=== PATIENT | female | born 1945 | race Caucasian/White ===

== ENCOUNTER → 2016-10-28 | Outpatient (CLI) | payer BC ==
[~2016-10-28] MED LIST: ATOR-54 PO; CALCIUM PO; CMD25 PO; CMD5 PO; LISI5TAB3 PO; LORA-741 PO; METO100T14 PO; NXM/40 PO; OMEGCAP2 PO; TRIATAB3 PO; VITAMIN D PO
[2016-10-28 14:43] LABS: URINE APPEARANCE CLEAR (CLEAR); URINE BILIRUBIN NEG (NEG); URINE COLOR YELLOW; URINE EPITHELIAL CELL AUTO 0-5 /lpf (0-5); URINE NITRITE NEG (NEG); URINE PH 7.5 (4.5-7.5); UROBILINOGEN NEG (NEG)
[2016-10-28 14:47] LABS: BLOOD UREA NITROGEN 16 mg/dl (7-18); BUN/CREATININE RATIO 11.1 (10-20); CALCIUM 9.2 mg/dl (8.5-10.1); CARBON DIOXIDE 27 mmol/L (21-32); CHLORIDE 104 mmol/L (98-107); GLUCOSE 99 mg/dl (70-99); PHOSPHORUS 3.1 mg/dl (2.5-4.9); POTASSIUM 3.9 mmol/L (3.5-5.1); SODIUM 140 mmol/L (136-145)
[2016-10-28 14:49] LABS: MANUAL MICROSCOPIC REQUIRED? NO; REVIEW REQ? NO
== END | disposition home or self-care (01) ==
LOC: C.LAB1850 12:53
PROVIDERS: ATTEND Internal Medicine Nephrology
DX: N18.3 Chronic kidney disease, stage 3 (moderate) (principal); E55.9 Vitamin D deficiency, unspecified

== ENCOUNTER → 2016-12-16 | Outpatient (CLI) | payer BC | END | disposition home or self-care (01) | LOC: C.LABBFT 11:03 | PROVIDERS: ATTEND Internal Medicine | DX: E03.9 Hypothyroidism, unspecified (principal) ==

== ENCOUNTER → 2016-12-28 | Outpatient (CLI) | payer BC ==
--- NOTE | 2016-12-28 15:55 | MAMMOGRAPHY REPORT ---
BILATERAL DIGITAL SCREENING MAMMOGRAM WITH CAD: 12/28/2016 CLINICAL HISTORY: Routine screening. Patient has no complaints. TECHNIQUE: Current study was also evaluated with a Computer Aided Detection (CAD) system. Bilatera l CC and MLO views were obtained. COMPARISON: Comparison is made to exams dated: 12/25/2014 mammogram, 12/28/2015 mammogram, 12/24/2013 mammogram, 05/07/2013 mammogram, and 11/11/2011 mammogram - [facility]. BREAST COMPOSITION: There are scattered areas of fibroglandular density in both breasts. FINDINGS: No suspicious masses, calcifications, or areas of architectural distortion are noted in e ither breast. There has been no significant interval change compared to prior exams. Bilateral maranda gn-appearing calcifications are not significantly changed. A biopsy marker clip is again noted in t he left superior breast. Left lateral breast asymmetry is stable. IMPRESSION: ACR BI-RADS CATEGORY 2: BENIGN There is no mammographic evidence of malignancy. A 1 year screening mammogram is recommended. The p atient will receive written notification of the results. Approximately 10% of breast cancers are not detected with mammography. A negative mammographic repor t should not delay biopsy if a clinically suggestive mass is present. Caroline Aguirre M.D. ah/:12/28/2016 15:12:05 Care Worker: Taylor ESCOBAR(R)(M), [facility] letter sent: Normal 1/2 BI-RADS Code: ACR BI-RADS Category 2: Benign
== END | disposition home or self-care (01) ==
LOC: C.MAMM 13:06
PROVIDERS: ATTEND Obstetrics & Gynecology
DX: Z12.31 Encounter for screening mammogram for malignant neoplasm of breast (principal)

== ENCOUNTER → 2017-02-09 | Outpatient (CLI) | payer BC ==
--- NOTE | 2017-02-09 16:24 | DIAGNOSTIC IMAGING REPORT ---
CHEST 2 VIEWS ROUTINE CLINICAL HISTORY: COUGH/R73.03 dyspnea COMPARISON STUDY: 04/19/2015 FINDINGS: The bones soft tissues and hemidiaphragms are normal. The cardiomediastinal silhouette is normal. The lungs are clear. The pulmonary vasculature is normal. IMPRESSION: Negative chest. Electronically signed by: Scottie Foster M.D. 02/09/2017 4:23 PM Dictated Date/Time: 02/09/2017 4:22 PM
[2017-02-09 17:25] LABS: ALT/SGPT 41 U/L (12-78); AST/SGOT 23 U/L (15-37); BLOOD UREA NITROGEN 14 mg/dl (7-18); BUN/CREATININE RATIO 11.5 (10-20); CALCIUM 9.2 mg/dl (8.5-10.1); CARBON DIOXIDE 30 mmol/L (21-32); CHLORIDE 107 mmol/L (98-107); GLUCOSE 96 mg/dl (70-99); SODIUM 142 mmol/L (136-145)
[2017-02-09 17:33] LABS: ALB/GLOB RATIO 1.1 (0.9-2); ALKALINE PHOSPHATASE 92 U/L (45-117); CHOLESTEROL 171 mg/dl (0-200); CHOLESTEROL/HDL RATIO 2.7; HDL CHOLESTEROL 63 mg/dl; LDL CHOLESTEROL CALCULATED 83 mg/dl; TRIGLYCERIDES 123 mg/dl (0-150); VERY LOW DENSITY LIPOPROT CALC 25 mg/dl
[2017-02-10 07:20] LABS: ESTIMATED AVERAGE GLUCOSE 128 mg/dl; HA1C FLAG Normal (Normal)
--- NOTE | 2017-02-14 09:20 | CODING QUERY MEDICAL NECESSITY ---
CQSUPPORTING DIAGNOSIS NEEDED A supporting diagnosis is required for the test/procedure performed on this patient in order for us to be reimbursed by the patient's insurance. Please provide a supporting diagnosis for the following test/procedure listed below next to the test name along with your signature. *If there is no additional diagnosis for this patient that would support the following test/procedure please document that below next to the test/procedure. Test(s)/Procedure(s) that require a supporting diagnosis: DOS 02/09/17 GLYCATED HEMOGLOBIN Provider Signature: Date: Thank you Shruthi Villela [employer] Once completed, please kindly fax back to [phone] For questions please call [phone]
== END | disposition home or self-care (01) ==
LOC: C.RADBC 15:27
PROVIDERS: ATTEND Internal Medicine
DX: R05 Cough (principal); R73.03 Prediabetes; R73.01 Impaired fasting glucose

== ENCOUNTER → 2017-04-14 | Outpatient (CLI) | payer BC ==
[2017-04-14 16:38] LABS: BASO % 0.2 %; BASO ABS # 0.03 K/uL (0-0.2); COMPLETE YES; EOS % 0.3 %; HEMATOCRIT 47.2 % (37-47); IG% 0.3 %; LYMPH % 4.9 %; LYMPH ABS # 0.62 K/uL (1.2-3.4); MEAN CELL VOLUME 94.8 fL (80-100); MEAN CORPUSCULAR HEMOGLOBIN 31.3 pg (25-34); MEAN CORPUSCULAR HGB CONC 33.1 g/dl (32-36); MEAN PLATELET VOLUME 10.8 fL (7.4-10.4); MONO % 10.9 %; NEUT % 83.4 %; PLATELET COUNT 195 K/uL (130-400); RED BLOOD COUNT 4.98 M/uL (4.2-5.4); WHITE BLOOD COUNT 12.58 K/uL (4.8-10.8)
== END | disposition home or self-care (01) ==
LOC: C.LAB1850 15:21
PROVIDERS: ATTEND Physician Assistant
DX: R10.32 Left lower quadrant pain (principal)

== ENCOUNTER → 2017-04-22 | Outpatient (CLI) | payer BC ==
--- NOTE | 2017-04-22 11:37 | DIAGNOSTIC IMAGING REPORT ---
L-SPINE MIN 4 VIEWS ROUTINE CLINICAL HISTORY: Acute lower back pain. COMPARISON: None FINDINGS: Alignment of the lumbar spine is anatomic. Vertebral body heights are maintained. There is no acute fracture. Disc spaces are preserved. There is mild endplate osteophytosis. There is moderate multilevel facet arthrosis. IMPRESSION: 1. No acute lumbar spine fracture. 2. Mild multilevel degenerative disc disease and moderate multilevel facet arthrosis of the lumbar spine. Electronically signed by: Donte Amezcua M.D. 04/22/2017 11:36 AM Dictated Date/Time: 04/22/2017 11:35 AM
== END | disposition home or self-care (01) ==
LOC: C.RADBC 09:18
PROVIDERS: ATTEND Internal Medicine
DX: M54.5 Low back pain (principal)

== ENCOUNTER → 2017-06-20 | Outpatient (CLI) | payer BC | END | disposition home or self-care (01) | LOC: C.PAPS 16:55 | PROVIDERS: ATTEND Obstetrics & Gynecology | DX: Z12.4 Encounter for screening for malignant neoplasm of cervix (principal) ==

== ENCOUNTER → 2017-08-11 | Outpatient (CLI) | payer BC ==
[2017-08-11 16:42] LABS: BASO % 0.3 %; BASO ABS # 0.03 K/uL (0-0.2); COMPLETE YES; EOS % 2.2 %; HEMATOCRIT 42.6 % (37-47); IG% 0.3 %; LYMPH % 14.7 %; LYMPH ABS # 1.31 K/uL (1.2-3.4); MEAN CELL VOLUME 92.4 fL (80-100); MEAN CORPUSCULAR HEMOGLOBIN 30.4 pg (25-34); MEAN CORPUSCULAR HGB CONC 32.9 g/dl (32-36); MEAN PLATELET VOLUME 10.4 fL (7.4-10.4); MONO % 9.1 %; NEUT % 73.4 %; PLATELET COUNT 249 K/uL (130-400); RED BLOOD COUNT 4.61 M/uL (4.2-5.4); WHITE BLOOD COUNT 8.89 K/uL (4.8-10.8)
[2017-08-11 16:51] LABS: URINE APPEARANCE CLEAR (CLEAR); URINE BILIRUBIN NEG (NEG); URINE COLOR YELLOW; URINE NITRITE NEG (NEG); URINE SPECIFIC GRAVITY 1.018 (1.000-1.030); UROBILINOGEN NEG (NEG)
[2017-08-11 16:52] LABS: MANUAL MICROSCOPIC REQUIRED? NO; REVIEW REQ? NO
[2017-08-11 17:22] LABS: ALKALINE PHOSPHATASE 117 U/L (45-117); ALT/SGPT 25 U/L (12-78); AST/SGOT 13 U/L (15-37); BLOOD UREA NITROGEN 16 mg/dl (7-18); BUN/CREATININE RATIO 13.5 (10-20); CALCIUM 9.6 mg/dl (8.5-10.1); CARBON DIOXIDE 26 mmol/L (21-32); CHLORIDE 106 mmol/L (98-107); CHOLESTEROL 149 mg/dl (0-200); CREATININE 1.21 mg/dl (0.60-1.20); GLUCOSE 109 mg/dl (70-99); POTASSIUM 3.9 mmol/L (3.5-5.1); SODIUM 139 mmol/L (136-145); TRIGLYCERIDES 115 mg/dl (0-150); VERY LOW DENSITY LIPOPROT CALC 23 mg/dl
[2017-08-11 17:32] LABS: ALB/GLOB RATIO 0.8 (0.9-2); CHOLESTEROL/HDL RATIO 2.8; HDL CHOLESTEROL 53 mg/dl; LDL CHOLESTEROL CALCULATED 73 mg/dl; PHOSPHORUS 3.2 mg/dl (2.5-4.9)
[2017-08-12 07:05] LABS: ESTIMATED AVERAGE GLUCOSE 134 mg/dl; HA1C FLAG Normal (Normal)
== END | disposition home or self-care (01) ==
LOC: C.LABBFT 12:10
PROVIDERS: ATTEND Internal Medicine
DX: N18.3 Chronic kidney disease, stage 3 (moderate) (principal); I12.9 Hypertensive chronic kidney disease with stage 1 through stage 4 chronic kidney disease, or unspecified chronic kidney disease; E78.5 Hyperlipidemia, unspecified; I48.92 Unspecified atrial flutter; R73.03 Prediabetes; R73.01 Impaired fasting glucose; Z79.01 Long term (current) use of anticoagulants; E53.8 Deficiency of other specified B group vitamins

== ENCOUNTER → 2017-10-27 | Outpatient (CLI) | payer BC ==
[2017-10-27 16:36] LABS: ALBUMIN 3.3 gm/dl (3.4-5.0); BLOOD UREA NITROGEN 16 mg/dl (7-18); CALCIUM 9.7 mg/dl (8.5-10.1); CARBON DIOXIDE 30 mmol/L (21-32); CREATININE 1.36 mg/dl (0.60-1.20); GLUCOSE 109 mg/dl (70-99); PHOSPHORUS 3.1 mg/dl (2.5-4.9); POTASSIUM 3.9 mmol/L (3.5-5.1); SODIUM 140 mmol/L (136-145)
== END | disposition home or self-care (01) ==
LOC: C.LABBFT 11:44
PROVIDERS: ATTEND Internal Medicine Nephrology
DX: N18.3 Chronic kidney disease, stage 3 (moderate) (principal)

== ENCOUNTER → 2018-01-01 | Outpatient (CLI) | payer BC ==
--- NOTE | 2018-01-02 07:47 | MAMMOGRAPHY REPORT ---
BILATERAL DIGITAL SCREENING MAMMOGRAM TOMOSYNTHESIS WITH CAD: 01/01/2018 CLINICAL HISTORY: Routine screening. Patient has no complaints. TECHNIQUE: Breast tomosynthesis in addition to standard 2D mammography was performed. Current study was also evaluated with a Computer Aided Detection (CAD) system. COMPARISON: Comparison is made to exams dated: 12/28/2016 mammogram, 12/28/2015 mammogram, 12/25/2014 m ammogram, 12/24/2013 mammogram, 05/07/2013 mammogram, and 11/23/2012 mammogram - [facility]. BREAST COMPOSITION: There are scattered areas of fibroglandular density in both breasts. FINDINGS: There is a stable sergio-shaped biopsy marker clip in the posterior retroareolar left breast. Stable asymmetry in the lateral left breast. Diffuse bilateral groupings of benign-appearing punctat e and somewhat coarse calcifications as well as benign rim calcifications in both breasts. No new zarate spicious mass, architectural distortion or cluster of microcalcifications is seen. IMPRESSION: ACR BI-RADS CATEGORY 1: NEGATIVE There is no mammographic evidence of malignancy. A 1 year screening mammogram is recommended. The pa tient will receive written notification of the results. Approximately 10% of breast cancers are not detected with mammography. A negative mammographic report should not delay biopsy if a clinically suggestive mass is present. Charlene Man M.D. ay/:01/01/2018 20:59:22 Cobbler Upper: Verito Kingsley, [facility] letter sent: Normal 1/2 BI-RADS Code: ACR BI-RADS Category 1: Negative
== END | disposition home or self-care (01) ==
LOC: C.MAMM 13:07
PROVIDERS: ATTEND Obstetrics & Gynecology
DX: Z12.31 Encounter for screening mammogram for malignant neoplasm of breast (principal)

== ENCOUNTER → 2018-02-21 | Outpatient (CLI) | payer BC ==
[2018-02-21 12:44] LABS: ALBUMIN 3.2 gm/dl (3.4-5.0); ALKALINE PHOSPHATASE 109 U/L (45-117); ALT/SGPT 23 U/L (12-78); AST/SGOT 16 U/L (15-37); BLOOD UREA NITROGEN 13 mg/dl (7-18); CALCIUM 9.3 mg/dl (8.5-10.1); CARBON DIOXIDE 28 mmol/L (21-32); CHOLESTEROL 157 mg/dl (0-200); CREATININE 1.14 mg/dl (0.60-1.20); GLUCOSE 102 mg/dl (70-99); LDL CHOLESTEROL CALCULATED 78 mg/dl; SODIUM 141 mmol/L (136-145)
[2018-02-21 12:49] LABS: HEMOGLOBIN A1C 6.2 % (4.5-5.6)
== END | disposition home or self-care (01) ==
LOC: C.LABBFT 09:55
PROVIDERS: ATTEND Physician Assistant Medical
DX: I12.9 Hypertensive chronic kidney disease with stage 1 through stage 4 chronic kidney disease, or unspecified chronic kidney disease (principal); N18.3 Chronic kidney disease, stage 3 (moderate); E78.5 Hyperlipidemia, unspecified; R73.01 Impaired fasting glucose

== ENCOUNTER → 2018-04-27 | Outpatient (CLI) | payer BC ==
[2018-04-27 16:50] LABS: ALBUMIN 3.5 gm/dl (3.4-5.0); BLOOD UREA NITROGEN 20 mg/dl (7-18); CALCIUM 9.2 mg/dl (8.5-10.1); CARBON DIOXIDE 28 mmol/L (21-32); CREATININE 1.36 mg/dl (0.60-1.20); GLUCOSE 93 mg/dl (70-99); PHOSPHORUS 2.8 mg/dl (2.5-4.9); POTASSIUM 3.8 mmol/L (3.5-5.1); SODIUM 140 mmol/L (136-145)
== END | disposition home or self-care (01) ==
LOC: C.LAB1850 15:48
PROVIDERS: ATTEND Internal Medicine Nephrology
DX: M85.80 Other specified disorders of bone density and structure, unspecified site (principal); N18.3 Chronic kidney disease, stage 3 (moderate)

== ENCOUNTER 2022-06-13 06:30 | Observation (INO) ==
--- NOTE | 2022-06-08 09:58 | Anesthesiology Consultation ---
Date of Service June 08, 2022 Assessment & Plan (1) Encounter for pre-operative examination: Plan - check coags STAT am DOS. - Case discussed with Dr. Padilla who advised contacting cardiology for expedited further evaluation/management of afib with RVR as demonstrated on recent EKG given breast cancer. - cardiology office visit 02/24/22 [place]: "...Paroxysmal atrial fibrillation--episodes of RVR on event monitor 11/2020 off amiodarone. On beta- zain, anticoagulation...Chronic kidney disease--followed by Dr. Cotto...A. fib burden stable. Symptoms not terribly bothersome. Worse during periods of stress. Again discussed risk/benefits of retrying antiarrhythmic. For now plan to continue current metoprolol tartrate 100 mg twice daily. Continue anticoagulation with warfarin...Follow-up in 6 months..." - COVID screening: Per warehouse puller on 05/31/2022: Travel screen negative. Pt vaccinated. To surgeon's discretion if preop COVID testing needed. Chart Review Chart Review: Pending: Refer to Additional Notes / Consult section and Patient NOT seen in Pre Admission Testing History Surgery Operation Date: 06/13/22 07:00 Proposed Procedures p Left Breast Mastectomy with Left Axillary [place] Lymph Node Biopsy - Harish Finn MD, FACS Height/Weight Height: 4 ft 11.5 in Weight: 77.111 kg Allergies Allergy/AdvReac Type Severity Reaction Status Date / Time Cipro Allergy Mild ITCHY Verified 02/26/14 08:14 ciprofloxacin Allergy Unknown ITCHY Verified 05/31/22 14:49 metronidazole Allergy Unknown ITCHY Verified 05/31/22 14:49 cheese AdvReac Unknown "real Verified 05/31/22 14:49 cheese" - n/v Medications Home Medications Medication Instructions Recorded Confirmed Last Taken albuterol sulfate 90 mcg/actuation 2 puffs inhalation UD PRN 03/06/19 05/31/22 Unknown aerosol inhaler Shortness Of Breath #2 grams calcium carbonate 600 mg-vitamin 1 tab PO BID 03/06/19 05/31/22 Unknown D3 20 mcg (800 unit) tablet montelukast 10 mg tablet 10 mg PO UD PRN SOB and Wheezing 03/06/19 05/31/22 Unknown #90 tabs omega-3 acid ethyl esters 1 gram 1 cap PO BID 03/06/19 05/31/22 Unknown capsule sodium chloride 0.65 % nasal spray 2 sprays intranasal BID #1 mL 03/06/19 05/31/22 Unknown aerosol budesonide-formoterol HFA 160 1 puffs inhalation BID PRN 05/13/19 05/31/22 Unknown mcg-4.5 mcg/actuation aerosol Shortness Of Breath #1 g inhaler docusate sodium 100 mg capsule 200 mg PO BID 05/13/19 05/31/22 Unknown Mattress (Air or other) #1 ea 07/12/21 05/31/22 Unknown compress.stocking,knee,reg,med #2 ea 07/12/21 05/31/22 Unknown metoprolol tartrate 100 mg tablet 100 mg PO BID #180 tabs 12/31/21 05/31/22 Unknown atorvastatin 20 mg tablet 20 mg PO QAM 05/31/22 05/31/22 Unknown levothyroxine 50 mcg tablet 50 mcg PO QAM 05/31/22 05/31/22 Unknown losartan 100 mg tablet 100 mg PO QPM 05/31/22 05/31/22 Unknown warfarin 1 mg tablet 3 mg PO DAILY 05/31/22 05/31/22 Unknown Past Medical History Medical History (Updated 06/08/22 @ 09:55 by Yen Abbasi PA-C) Acid reflux HX, DIETARY CONTROLLED Anticoagulant long-term use warfarin Atrial flutter 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, estrogen receptor positive DX LEFT BREAST CA (SUMMER 2021) - REASON FOR UPCOMING PROCEDURE Chronic kidney disease (CKD), stage III (moderate) PT DENIES - REPORTS NO HX KIDNEY DISEASE OR KIDNEY STONES Chronic low back pain DDD (degenerative disc disease) Diverticulitis NO RECENT FLARE UPS 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 Family history of reaction to anesthesia sister with reported filler leaf cutter long memory changes after anesthesia Hyperlipidemia Hypertension Irritable bowel syndrome hx, controlled now Osteopenia Paroxysmal atrial fibrillation with episodes of RVR, burden stable per [place] cardio Periodic limb movement disorder Thyroid disease takes levothyroxine d/t medication induced effect on thyroid - pt not sure details of Uterine prolapse Venous insufficiency of both lower extremities Past Family History Family History Father Congestive heart failure Heart disease Myocardial infarction Mother Thyroid disorder Sister Liver cancer Thyroid cancer Alzheimer disease Breast cancer Daughter Atrial fibrillation Kidney disease End stage, on dialysis Brother Family history of colon cancer Cancer Other Family history of pancreatic cancer Denies family history of Ovarian cancer Prostate cancer Diabetes Lung cancer Colorectal cancer Stroke Past Surgical History Surgical History H/O breast biopsy MULTIPLE H/O colonoscopy History of arthroscopy of left shoulder History of bunionectomy R&L Social History Smoking Status: Never smoker Do You Dip or Chew Tobacco: No Hx Alcohol Use: No Hx Substance Use: No substance use type: does not use Testing Laboratory Results 05/13/2022 WBC: 8.9 H/H: 15/47 PLATELETS: 264 SODIUM: 143 POTASSIUM: 4.3 CHLORIDE: 105 CO2: 31 BUN: 15 CREATININE: 1 GLUCOSE: 100 Electrocardiogram Date: 05/31/22 Afib with RVR, rate 125 bpm Low voltage QRS Nonspecific ST abnormality Echocardiogram Date: 02/09/21 EF 65-70% No LV regional wall motion abnormalities Mild aortic insufficiency PASP 35 to 40 mmHg Other Testing Bone scan 05/19/22 1. There is no scintigraphic evidence of osseous metastatic disease. 2. Specifically, there is no abnormal rib activity corresponding to the lesion suggested by MRI. No rib lesion was seen on the recent chest CT. 3. Extravasated tracer is noted in the left antecubital fossa. Chest CT 05/18/22 No thyroid nodule. No lymphadenopathy. Mild cardiomegaly without pericardial effusion. Atherosclerosis of the thoracic aorta with mild stenosis at the origin of the left subclavian artery. The opacified pulmonary artery is unremarkable. No pneumothorax, pleural effusion, airspace consolidation or overt pulmonary edema. Mild linear subsegmental bibasilar atelectasis versus scarring. There are no suspicious pulmonary nodules or masses identified. The central airways are patent. Unremarkable soft tissues. Small hiatal hernia. Contracted gallbladder. Degenerative changes of the shoulders and spine. There are numerous loose bodies within the right subscapular recess measuring up to 1.1 cm with several subcentimeter loose bodies within the left glenohumeral joint. IMPRESSION: 1. No acute intrathoracic abnormality. 2. No lymphadenopathy or evidence of pulmonary metastasis. 3. Additional findings as above. Abdomen pelvis CT 05/18/22 Lung bases: The heart is normal in size and without pericardial effusion. The lung bases are noting bibasilar atelectasis clear. There is a small hiatal hernia. Liver: The contrast-enhanced liver is normal in size, contour, and attenuation. There is no intrahepatic biliary ductal dilatation. The hepatic veins and portal veins are patent. Kidneys: The contrast enhanced kidneys demonstrate cortical atrophy and are without hydronephrosis. The kidneys enhance symmetrically. A circumaortic left renal vein is incidentally noted. Abdominal vasculature: The abdominal aorta is normal in course and caliber noting moderate to advanced atherosclerotic calcification. Bowel: There is mild colonic diverticulosis without CT evidence of acute diverticulitis. No bowel obstruction is seen. Enteric contrast reaches the left colon. Duodenal diverticula are incidentally noted. The appendix is well- visualized and normal. Skeletal structures: The skeletal structures are osteopenic. Mild lumbosacral spondylosis is observed. No lytic or blastic lesions are seen. IMPRESSION: 1. There is no evidence of metastatic disease in the abdomen or pelvis. 2. There is no CT evidence of colonic lesion. Correlate with colonoscopy results. 3. Mild colonic diverticulosis without CT evidence of acute diverticulitis. 4. Additional findings as above. 2:1 wireless event monitoring 04/17/22 Paroxysmal atrial fibrillation/atrial flutter: AF burden 17%. 2 episodes > 2 hrs. Rare PVCs Symptoms of heart racing/skipped beat mostly correlated with AF in 110-120s
[~2022-06-13 06:30] MED LIST changes: -ATOR-54 PO; -CALCIUM PO; -CMD25 PO; -CMD5 PO; +LACTATED RINGER'S 1,000 ML IV SCH; -LISI5TAB3 PO; -LORA-741 PO; -METO100T14 PO; -NXM/40 PO; -OMEGCAP2 PO; -TRIATAB3 PO; -VITAMIN D PO; +ceFAZolin 2000MG 2,000 MG/15 ML SYR IV SCH
--- NOTE | 2022-06-13 07:04 | History & Physical Bridge Note ---
Date of Service June 13, 2022 History & Physical Bridge Note I have examined the patient, reviewed the History & Physical and in the interval since the performance of the History & Physical I have noted the following changes of clinical significance: no changes noted
[2022-06-13 07:49] LABS: INR 1.1 (0.9-1.1); Partial Thromboplastin Ratio 1.1; Partial Thromboplastin Time 29.3 Seconds (21.0-31.0); Prothrombin Time 11.4 Seconds (9.0-12.0)
[2022-06-13] MEDS ORDERED: fentaNYL citrate 100 MCG/2 ML VIAL ONE (08:35)
[2022-06-13] MEDS ORDERED: MIDAZOLAM HCL 1 MG/ML 2ML VIAL ONE ×2 (08:35→09:40)
[2022-06-13] MEDS ORDERED: ePHEDrine sulfate 50 MG/ML AMP IV PRN (09:03)
[2022-06-13] MEDS ORDERED: ATROPINE SULFATE 0.1 MG/ML 10ML SYR IV PRN (09:03)
[2022-06-13] MEDS ORDERED: ONDANSETRON INJ 2 MG/ML 2 ML VIAL IV PRN ×2 (09:03→13:34)
[2022-06-13] MEDS ORDERED: fentaNYL citrate 100 MCG/2 ML VIAL IV PRN (09:03)
[2022-06-13] MEDS ORDERED: ISOSULFAN BLUE 10 MG/ML VIAL 5 ML ONE (09:15)
[2022-06-13] MEDS ORDERED: BUPIVACAINE 0.5 % 5 MG/1 ML MPF 30ML VIAL ONE (09:16)
[2022-06-13] MEDS ORDERED: ROCURONIUM BROMIDE 10 MG/ML 5 ML VIAL IV ONE (10:42)
[2022-06-13] MEDS ORDERED: DEXAMETHASONE SOD INJ 4 MG/ML VIAL ONE (10:42)
[2022-06-13] MEDS ORDERED: PROPOFOL IV EMULSION 10 MG/ML 20 ML VIAL IV ONE (10:42)
[2022-06-13] MEDS ORDERED: LIDOCAINE 2% MPF LOCAL 5 ML VIAL INFIL ONE (10:42)
[2022-06-13] MEDS ORDERED: ONDANSETRON INJ 2 MG/ML 2 ML VIAL ONE (10:42)
[2022-06-13] MEDS ORDERED: GLYCOPYRROLATE 0.2 MG/ML VIAL ONE (10:52)
[2022-06-13] MEDS ORDERED: NEOSTIGMINE METHYLSULFATE 1 MG/ML 10ML VIAL ONE (10:52)
[2022-06-13] MEDS ORDERED: ACETAMINOPHEN 1,000 MG/100 ML VIAL IV ONE (11:42)
--- NOTE | 2022-06-13 11:42 | Post Operative Brief Note ---
PG Immediate Post Op with CF Date of Surgery June 13, 2022 Pre & Post Diagnosis Operation Date: 06/13/22 09:20 Pre-Op Diagnosis: Left Breast Cancer Post-Op Diagnosis: Left Breast Cancer I identified the patient and participated in the time-out.: Yes Procedure Operation Date: 06/13/22 09:20 Actual Procedures p Left Breast Mastectomy with Left Axillary [place] Lymph Node Biopsy(Left) - Harish Finn MD, FACS Surgeon Harish Finn MD, FACS Silver Lap Machine Tender Adonis Dye Estimated Blood Loss 20 Findings Consistent with Post-Op Diagnosis [place] lymph nodes and left breast tissue Specimens Specimen Description: 1. Left sentinel lymph node biopsy. 2. Left breast long silk lateral. Drains Sharif-Victor Drain
--- NOTE | 2022-06-13 11:59 | Nuclear Medicine Report ---
LYMPHOSCINTIGRAPHY CLINICAL HISTORY: Left breast cancer. PROCEDURE: Using standard sterile technique, 4 intradermal and one deep injection of 0.5 mCi of Lymph oseek was placed in the left periareolar breast. The patient tolerated the procedure well. There were no immediate complications. The patient was subsequently transported to the surgical suite. No imagi ng was obtained at the referring physician's request. IMPRESSION: Injection of 0.5 mCi of Lymphoseek in the left breast. ACT 112: Negative or not required by law. Electronically signed by: Jason Young M.D. 06/13/2022 11:56 AM
--- NOTE | 2022-06-13 12:25 | Operative Report (OR) ---
DATE OF OPERATION: 06/13/2022. NAME OF OPERATION: Left mastectomy with sentinel lymph node biopsy. PREOPERATIVE DIAGNOSIS: Left breast cancer. POSTOPERATIVE DIAGNOSIS: Left breast cancer. STAFF SURGEON: Harish Finn MD STRIP POLISHER: Birgit Dye PA-C ANESTHESIA: General. DESCRIPTION OF PROCEDURE: The patient was brought in the operating room, placed on the operating tab le in the supine position. Her left chest and axilla were prepped and draped in the usual fashion. The incisions were anesthetized using 0.5% plain Marcaine. The axilla was approached in a separate i ncision made in the left axilla, carrying dissection down using a Neoprobe, isolating several sentine l lymph nodes sent for routine pathology. At this point, a large elliptical incision was made in the breast, incorporating the nipple-areolar complex. The patient had a very large breast. The breast tissue was dissected away from the subcutaneous tissue cephalad and caudad creating superior and infe rior chest wall flaps and then the breast taken off the pectoralis major muscle including the fascia. Vessels were ligated using 2-0 silk suture and 2-0 and 0 chromic suture. A 19 round Sharif-Victor drain was placed into the chest wound and placed up into the axilla. At this point, the site was irr igated and then the subcutaneous tissue reapproximated using 3-0 Vicryl suture and the skin reapproxi mated using subcuticular 4-0 Monocryl, Steri-Strips in the breast. The axilla was closed using 4-0 n ylon suture. Dressing applied. Jarvis wrap applied. The patient was transferred to recovery room in s table condition. My assistant fitness manager helped with prepping, draping, sentinel lymph node biopsy, removal of the breast tissue, and closure of the wound. Job ID: [id number]
--- NOTE | 2022-06-13 12:45 | Anesthesiology Progress Note ---
Date of Service June 13, 2022 Anesthesia Post Procedure Vital Signs Vital Signs: Temp Pulse Resp BP Pulse Ox O2 Del Method O2 Flow Rate 06/13/22 12:35 97 H 18 122/58 L 96 Room Air 06/13/22 12:25 97 H 17 142/84 H 100 Oxymask 5 06/13/22 12:15 96 H 18 125/62 99 Oxymask 5 06/13/22 12:09 96.8 F L 103 H 18 104/76 99 Oxymask 5 06/13/22 07:34 98.1 F 92 H 18 138/103 H 94 Room Air Transfer of Care Handoff Completed per policy Notes Mental Status: alert / awake / arousable and participated in evaluation Patient Amnestic to Procedure: Yes Nausea / Vomiting: adequately controlled Pain: adequately controlled Airway Patency, RR, SpO2: stable & adequate BP & HR: stable & adequate Hydration State: stable & adequate Anesthetic Complications: no major complications apparent and Pt Satisfied with anesthetic care
[2022-06-13] MEDS ORDERED: LACTATED RINGER'S 1,000 ML IV SCH ×2 (13:34→17:52)
--- NOTE | 2022-06-13 14:21 | Hospitalist Consultation ---
Date of Consultation June 13, 2022 Assessment & Plan (1) History of mastectomy: - POD # 0, EBL 20 cc, without complications. МАРИНА drain in place. - Pain/ABX/IVF/diet/drain management/transfusion needs/activity per primary team - VTE prophylaxis per primary service- SCDs in place, heparin SC q12h starting t omorrow AM ordered by primary team. - Holding warfarin for now. - CBC and BMP in AM. - Baseline renal function: Cr 1.13, GFR 46 in August; no recent labs - Baseline Hgb: 15.3 in August; no recent labs (2) Breast cancer, left: - Invasive carcinoma and high-grade DCIS, hormonal positive, HER2 miradna negative with 5 cm mass diagnosed this summer. - Further treatment pending, sees Dr. Enciso with [facility] heme/onc. (3) Paroxysmal atrial fibrillation: - Tends to be in afib often/daily with HR typically in 100-110. Per cardiology, okay to remain at these rates given she is minimally symptomatic. Metoprolol recently increased from 100 BID to 150 mg BID prior to surgery to achieve better rate control. - HR initially 60s post-op, normotensive. However has been 90-110s with occaisonal jumps to 120s, BP slightly low 100s/60s. - Did nto take metoprolol this AM. - On warfarin, held 5 day prior to procedure today. - INR morning of procedure 1.1 - Continue to hold warfarin per primary team due to some bleeding during operation; will obtain INR tomorrow AM, discuss with surgery when to restart warfarin. - Will need to be bridged back to warfarin. - Heparin 5000 units SC q12h to start tomorrow AM, ordered by primary team. - Given she is in afib with episodes of RVR, will give patient digoxin now as scheduled and reduce this evening and tomorrow morning's dose of metoprolol to 50 mg given her borderline hypotension. - Start LRs at 125 cc/hr x 1 L. - Move patient to PCU for telemetry monitoring so that she may receive Lopressor 5 mg IV prn for HR > 120 bpm. - Plan discussed with my supervising physician, Dr. March, as well as Birgit Dey, general surgery PAAmanuel. (4) Hypertension: - On metoprolol 150 mg BID for a fib, as well as losartan 100 g daily. - Hold losartan until POD#2 due to concerns for orthostatic hypotension s/p general anesthesia for mastectomy; can restart if needed to manage hypertension on POD#1 pending stable renal function on AM BMP. - Currently normotensive/borderline hypotensive. - Reduce evening and tomorrow AM dose of metoprolol as above, LRs as above. (5) Chronic kidney disease (CKD), stage III (moderate): - Cr 113, GFR 4 in August; BMP in AM. - Avoid nephrotoxins, renally dose medications as able, avoid NSAIDs for pain control. (6) Hyperlipidemia: - Continue statin. (7) Hypothyroidism: Continue levothyroxine. (8) Venous insufficiency of both lower extremities: - Elevate legs while sitting/in bed. Plan - Transfer from med/surg to PCU for afib/cardiac monitoring. - SCDs, Heparin Q12 starting tomorrow AM for VTE ppx per primary team. - Full Code. Supervising Physician Co-Signing Physician Notes Patient was seen and examined independently I discussed the case with Sweta OBWEN I reviewed pertinent past medical social family history and also the plan of care and agree with the plan of care. Patient was seen postoperatively she was hypothermic. She also admits to not taking her beta-zain for atrial fibrillation control prior to surgery. We will move her to telemetry for further close monitoring we will have intravenous metoprolol available for her. We will continue metoprolol at a lower dose due to her postoperative hypotension and continue her digoxin. Examination finds her to be sleepy heart is irregular but controlled lungs are clear Any exceptions will be noted below History of Present Illness Reason for Consultation: Postop medication management Requesting Physician: Harish Finn MD, FACS Attending Physician: Harish Finn MD, FACS History of Present Illness Amanda Rodriguez is a 77-year-old female with past medical history significant for paroxysmal A. fib, hypertension, dyslipidemia, CKD, venous insufficiency, hypothyroidism, and asthma who was admitted today, 06/13 for a left breast mastectomy with axillary sentinel lymph node biopsy with Dr. Finn. Patient was diagnosed with invasive carcinoma and high-grade DCIS, hormonal positive, HER2 miranda negative with 5 cm mass this summer. Hospitalist group was consulted for post-operative medication management. Patient is currently admitted to med/surg. At the time of my evaluation, she is with temp of 36.3*C with Flora hugger on, and in afib with HR 80-110s with occasional recordings in 120s via portable VS machine at bedside. BP recorded as 100/56 prior to my arrival, rechecked and it was 113/74. SpO2 > 92% on RA. Overall, she is feeling well. She occasionally notices palpitations, however otherwise without any chest pain, SOB, dizziness, lightheadedness. She has a mild nagging pain at the site of her procedure. Denies fever/chills, weakness, cough, orthopnea, abdominal pain, nausea, vomiting. She ate lunch and was able to enjoy it without feeling nauseous, does note some throat soreness from being intubated in OR, but swallowing okay. Allergies Allergy/AdvReac Type Severity Reaction Status Date / Time Cipro Allergy Mild ITCHY Verified 02/26/14 08:14 ciprofloxacin Allergy Unknown ITCHY Verified 06/13/22 07:26 metronidazole Allergy Unknown ITCHY Verified 06/13/22 07:26 cheese AdvReac Unknown "real Verified 06/13/22 07:26 cheese" - n/v Home Medications Medication Instructions Recorded Confirmed Type albuterol sulfate 90 mcg/actuation 2 puffs inhalation UD PRN 03/06/19 06/13/22 History aerosol inhaler Shortness Of Breath #2 grams calcium carbonate 600 mg-vitamin 1 tab PO BID 03/06/19 06/13/22 History D3 20 mcg (800 unit) tablet montelukast 10 mg tablet 10 mg PO UD PRN SOB and Wheezing 03/06/19 06/13/22 History #90 tabs omega-3 acid ethyl esters 1 gram 1 cap PO BID 03/06/19 06/13/22 History capsule sodium chloride 0.65 % nasal spray 2 sprays intranasal BID #1 mL 03/06/19 06/13/22 History aerosol budesonide-formoterol HFA 160 1 puffs inhalation BID PRN 05/13/19 06/13/22 History mcg-4.5 mcg/actuation aerosol Shortness Of Breath #1 g inhaler docusate sodium 100 mg capsule 200 mg PO BID 05/13/19 06/13/22 History Mattress (Air or other) #1 ea 07/12/21 06/09/22 Rx compress.stocking,knee,reg,med #2 ea 07/12/21 06/09/22 Rx atorvastatin 20 mg tablet 20 mg PO QAM 05/31/22 06/13/22 History levothyroxine 50 mcg tablet 50 mcg PO QAM 05/31/22 06/13/22 History losartan 100 mg tablet 100 mg PO QPM 05/31/22 06/13/22 History warfarin 1 mg tablet 3 mg PO DAILY 05/31/22 06/13/22 History digoxin 125 mcg (0.125 mg) tablet 125 mcg PO DAILY #30 tabs 06/09/22 06/13/22 Rx metoprolol tartrate 100 mg tablet 150 mg PO BID #180 tabs 06/09/22 06/13/22 Rx Patient History Medical History (Updated 06/13/22 @ 14:46 by Sweta Charles PA-C) Acid reflux HX, DIETARY CONTROLLED Anticoagulant long-term use warfarin Atrial flutter 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, estrogen receptor positive DX LEFT BREAST CA (SUMMER 2021) - REASON FOR UPCOMING PROCEDURE Chronic kidney disease (CKD), stage III (moderate) PT DENIES - REPORTS NO HX KIDNEY DISEASE OR KIDNEY STONES Chronic low back pain DDD (degenerative disc disease) Diverticulitis NO RECENT FLARE UPS 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 Family history of reaction to anesthesia sister with reported nursing home memory changes after anesthesia Hyperlipidemia Hypertension Irritable bowel syndrome hx, controlled now Osteopenia Paroxysmal atrial fibrillation with episodes of RVR, burden stable per [place] cardio Periodic limb movement disorder Thyroid disease takes levothyroxine d/t medication induced effect on thyroid - pt not sure details of Uterine prolapse Venous insufficiency of both lower extremities Surgical History (Updated 06/14/22 @ 06:13 by Harish Finn MD, FACS) H/O breast biopsy MULTIPLE H/O colonoscopy H/O left mastectomy (06/13/22) Left mastectomy with sentinel lymph node biopsy. Dr. Finn History of arthroscopy of left shoulder History of bunionectomy R&L Family History Father Congestive heart failure Heart disease Myocardial infarction Mother Thyroid disorder Sister Liver cancer Thyroid cancer Alzheimer disease Breast cancer Daughter Atrial fibrillation Kidney disease End stage, on dialysis Brother Family history of colon cancer Cancer Other Family history of pancreatic cancer Denies family history of Ovarian cancer Prostate cancer Diabetes Lung cancer Colorectal cancer Stroke Social History Smoking Status: Never smoker Second Hand Exposure: No; Do You Dip or Chew Tobacco: No; Hx Alcohol Use: No Hx Substance Use: No Preferred Language: Fijian Communication Ability: Effective Visual Impairment: Limited Hearing Ability: Normal Lunchroom Food Service Supervisor Required: No Beliefs That Will Affect Care: None and Faith Faith Beliefs: [facility] marital status: / Current Living Situation: Family Current Living Situation Comment: Daughter lives with her current occupational status: retired How many Children do You have: 4 Feels Safe at Home: Yes Safety Concerns: Feels Safe At This Time Childhood Exposure to Second-Hand Smoke: No caffeine: No during the past year weight has: remained stable Dental Care, Regularly: Yes Physical Activity Frequency: 1-2 Times per Week Seatbelt Use: always Sunscreen Use: Yes Assistive Devices: Glasses Review of Systems Review of Systems: Constitutional: No fever/chills, weakness, fatigue, myalgias, anorexia, night sweats Eyes: No diplopia, no worsening or blurred vision ENT: sore throat, mild pain with but no trouble swallowing; normal hearing Respiratory: No cough, sputum, dyspnea at rest or on exertion Cardiovascular: occasional palpitations; no chest pain or tightness Abdomen: No pain, nausea, vomiting, diarrhea or constipation : Denies dysuria, hematuria, increased urgency/frequency, urinary retention Musculoskeletal: some mild pain at site of procedure; no other joint pain, calf pain, swelling Neurologic: No weakness, numbness/tingling, or balance problems Psychiatric: No anxiety or depression Skin: No rash or itch Physical Exam Physical Exam: General: awake, alert, no apparent distress Head: Normocephalic, atraumatic ENT: PERRL, EOMI, no pharyngeal exudate, mucous membranes moist Chest: Clear to auscultation, on room air, no adventitious breath sounds Cardiac: irregular rate and rhythm consistent with afib; no murmur, no JVD, normal peripheral pulses, good capillary refill Abdominal: NABS x 4 quadrants, soft, nontender to palpation, no rebound, guarding or tenderness Extremities: Normal inspection, no peripheral edema or erythema, calfs nontender to palpation Psych: Normal mood and affect Neuro: AAO x 3, strength intact bilaterally and rated 5/5, no motor deficits, speech is clear, no peripheral sensory deficits Skin: no rash or erythema Results & Data Results & Data ([facility]) Vital Signs (Past 12 Hours) Vital Signs Temp Pulse Resp BP Pulse Ox O2 Del Method O2 Flow Rate 06/13/22 13:57 36.2 C L 62 17 112/77 96 Room Air 06/13/22 13:29 65 17 112/70 96 Room Air 06/13/22 12:55 36.6 C 89 18 117/85 95 Room Air 06/13/22 12:45 36.6 C 100 H 20 115/70 95 Room Air 06/13/22 12:35 97 H 18 122/58 L 96 Room Air 06/13/22 12:25 97 H 17 142/84 H 100 Oxymask 5 06/13/22 12:15 96 H 18 125/62 99 Oxymask 5 06/13/22 12:09 36.0 C L 103 H 18 104/76 99 Oxymask 5 06/13/22 07:34 36.7 C 92 H 18 138/103 H 94 Room Air Diagnostic Findings [place] Node 06/13/22 08:00 LYMPHOSCINTIGRAPHY CLINICAL HISTORY: Left breast cancer. PROCEDURE: Using standard sterile technique, 4 intradermal and one deep injection of 0.5 mCi of Lymphoseek was placed in the left periareolar breast. The patient tolerated the procedure well. There were no immediate complications. The patient was subsequently transported to the surgical suite. No imaging was obtained at the referring physician's request. IMPRESSION: Injection of 0.5 mCi of Lymphoseek in the left breast. ACT 112: Negative or not required by law. Electronically signed by: Jason Young M.D. 06/13/2022 11:56 AM PG Care Time/CCT Total # of Minutes Spent Total Time Spent with Patient: Total time spent is greater than 50% in coordination of care (as documented) at patient's floor/unit and/or counseling patient: Coding Level of Care Code 34510 Office/OBS Consult Lvl 5 Diagnoses History of mastectomy Z90.10 Breast cancer, left C50.912 Paroxysmal atrial fibrillation I48.0 Hypertension I10 Hypertension type: essential hypertension Chronic kidney disease (CKD), stage III (moderate) N18.3 Hyperlipidemia E78.5 Hyperlipidemia type: unspecified Hypothyroidism E03.9 Venous insufficiency of both lower extremities I87.2 (1) Hyperlipidemia Hyperlipidemia type: unspecified Qualified Code(s): E78.5 - Hyperlipidemia, unspecified (2) Hypertension Hypertension type: essential hypertension Qualified Code(s): I10 - Essential (primary) hypertension
[2022-06-13] MEDS ORDERED: ALBUTEROL HFA 8 GM INHALER INH PRN (14:47)
[2022-06-13] MEDS ORDERED: MONTELUKAST SODIUM 10 MG TABLET PO PRN ×2 (14:47→17:02)
[2022-06-13] MEDS ORDERED: BUDESONIDE/FORMOTEROL FUMARATE 160/4.5 60 PUFFS/INHALER INH PRN (14:47)
[2022-06-13] MEDS: ceFAZolin 1000MG 1,000 MG/7.5 ML SYR IV SCH ×2 (15:00→21:56)
[2022-06-13] MEDS: ACETAMINOPHEN 325 MG TAB PO PRN (15:46)
[2022-06-13] MEDS ORDERED: METOPROLOL TARTRATE 1 MG/ML VIAL IV PRN (17:52)
[2022-06-13] MEDS: MoRPHine SULFATE 2 MG/ML CARP IV PRN (17:56)
[2022-06-13] MEDS ORDERED: WARFARIN SOD 3 MG TAB PO SCH (18:00)
[2022-06-13] MEDS ORDERED: METOPROLOL SUCC 50MG EXT REL TAB PO SCH (21:00)
[2022-06-13] MEDS ORDERED: METOPROLOL TARTRATE 50 MG TAB PO SCH (21:00)
[2022-06-13] MEDS: SODIUM CHLORIDE 0.65% NA SOLN 45 ML (OCEAN) SCH (21:50)
[2022-06-13] MEDS: CALCIUM 600MG + VIT D 400 IU TAB PO SCH (21:55)
[2022-06-13] MEDS: METOPROLOL TARTRATE 50 MG TAB PO SCH (21:55)
[2022-06-13] MEDS: OMEGA-3 (PURIFIED FISH OIL) 1 GM CAP PO SCH (21:56)
[2022-06-13] MEDS: DOCUSATE SODIUM 100 MG CAP PO SCH (22:00)
[2022-06-14] MEDS: oxyCODONE HCL IR 5 MG TAB (IMMEDIATE RELEASE) PO PRN ×3 (04:17→18:09)
[2022-06-14] MEDS: MoRPHine SULFATE 2 MG/ML CARP IV PRN (06:05)
[2022-06-14] MEDS: LEVOTHYROXINE SODIUM 50 MCG TABLET PO SCH (06:14)
--- NOTE | 2022-06-14 06:16 | Surgery Progress Note ---
Date of Service June 14, 2022 Assessment & Plan (1) H/O left mastectomy: Plan: Patient did require some IV Lopressor for her A. fib and tachycardia As far as anticoagulation-no Lovenox/Coumadin together as she will almost certainly have bleeding May need to consider low-dose IV heparin with no bolus and beginning Coumadin Will discuss this with the medical team Patient does need wound care and will need a visiting nurse as well as drain care She will likely need several days in the hospital to coordinate her care Continue IV antibiotics and IV pain medication as needed Admission and Anticipated Discharge Date Admission Date: June 13, 2022 Results & Data ([facility] Vital Signs (Past 12 Hours) Vital Signs Temp Pulse Pulse Resp BP Pulse Ox O2 Del Method 06/14/22 04:53 131 H 06/14/22 03:52 36.7 C 124 H 18 133/86 94 Room Air 06/13/22 23:14 36.7 C 97 H 18 128/80 95 Room Air 06/13/22 19:34 36.5 C 109 H 18 141/83 H 98 Room Air PG Care Time/CCT Total # of Minutes Spent Total Time Spent with Patient: Total time spent is greater than 50% in coordination of care (as documented) at patient's floor/unit and/or counseling patient: Coding Level of Care Code None Diagnoses H/O left mastectomy Z90.12
[2022-06-14 06:49] LABS: Basophils # (auto) 0.03 K/uL (0-0.2); Basophils % (auto) 0.2 %; Eosinophils # (auto) 0.09 K/uL (0-0.50); Eosinophils % (auto) 0.7 %; Hematocrit (blood only) 41.3 % (34.1-44.9); Hemoglobin 13.9 g/dl (12.0-16.0); Immature Granulocytes # (auto) 0.06 K/uL (0.00-0.02); Immature Granulocytes % (auto) 0.5 %; Lymphocytes # (auto) 1.36 K/uL (1.2-3.4); Lymphocytes % (auto) 10.9 %; Mean Corpuscular Hemoglobin 30.7 pg (25.0-34.0); Mean Corpuscular Hgb Conc 33.7 g/dL (32.0-36.0); Mean Corpuscular Volume 91.2 fL (80.0-100.0); Mean Platelet Volume 10.2 fL (9.4-12.3); Monocytes # (auto) 1.11 K/uL (0.24-0.82); Monocytes % (auto) 8.9 %; Neutrophils # (auto) 9.82 K/uL (1.4-6.5); Neutrophils % (auto) 78.8 %; Platelet Count 219 K/uL (130-400); RDW Coefficient of Variation 12.9 % (11.5-14.5); RDW Standard Deviation 42.4 fL (36.4-46.3); Red Blood Count 4.53 M/uL (3.93-5.22); White Blood Count 12.47 K/ul (4.8-10.8)
[2022-06-14 07:02] LABS: INR 1.1 (0.9-1.1); Prothrombin Time 11.4 Seconds (9.0-12.0)
[2022-06-14 07:15] LABS: Albumin Globulin Ratio 1.7 (0.9-2); Albumin Level 3.7 gm/dl (3.4-5.0); BUN Creatinine Ratio 17.3 (10-20); Bilirubin,Total 0.7 mg/dl (0.2-1.0); Calcium 9.3 mg/dl (8.5-10.1); Creatinine Clr Calc Pharmacy 40.2 ml/min; Est GFR (African American) 59.2 ml/min; Est GFR (Non-African American) 51.1 ml/min; Globulin 2.2 gm/dl (2.5-4.0); Phosphorus 3.3 mg/dl (2.5-4.9); Potassium 3.9 mmol/L (3.5-5.1); Total Protein 5.9 gm/dl (6.0-8.3)
[2022-06-14] MEDS: OMEGA-3 (PURIFIED FISH OIL) 1 GM CAP PO SCH ×2 (08:55→21:13)
[2022-06-14] MEDS: METOPROLOL TARTRATE 50 MG TAB PO SCH ×2 (08:55→21:14)
[2022-06-14] MEDS: CALCIUM 600MG + VIT D 400 IU TAB PO SCH ×2 (08:55→21:14)
[2022-06-14] MEDS: HEPARIN SOD 5,000 UNIT/0.5 ML VIAL SQ SCH ×2 (08:56→21:15)
[2022-06-14] MEDS: ATORVASTATIN 20 MG TAB PO SCH (08:56)
[2022-06-14] MEDS: DOCUSATE SODIUM 100 MG CAP PO SCH ×2 (09:05→21:16)
[2022-06-14] MEDS: SODIUM CHLORIDE 0.65% NA SOLN 45 ML (OCEAN) SCH ×2 (09:05→21:15)
[2022-06-14] MEDS: ceFAZolin 1000MG 1,000 MG/7.5 ML SYR IV SCH ×3 (09:05→23:06)
[2022-06-14] MEDS ORDERED: METOPROLOL TARTRATE 50 MG TAB PO STA (11:20)
[2022-06-14] MEDS ORDERED: POLYETHYLENE (MIRALAX) 17 GM PACK PO PRN (11:23)
--- NOTE | 2022-06-14 13:07 | Hospitalist Progress Note ---
Date of Service June 14, 2022 Assessment & Plan (1) History of mastectomy: Plan: - POD # 0, EBL 20 cc, without complications. МАРИНА drain in place. - Pain/ABX/IVF/diet/drain management/transfusion needs/activity per primary team - VTE prophylaxis per primary service- SCDs in place, -Resume warfarin - (2) Breast cancer, left: Plan: - Invasive carcinoma and high-grade DCIS, hormonal positive, HER2 miranda negative with 5 cm mass diagnosed this summer. - Further treatment pending, sees Dr. Enciso with [facility] heme/onc. (3) Paroxysmal atrial fibrillation: Plan: - Tends to be in afib often/daily with HR typically in 100-110. Per cardiology, okay to remain at these rates given she is minimally symptomatic. Metoprolol recently increased from 100 BID to 150 mg BID prior to surgery to achieve better rate control. - Patient doing well postoperative blood pressure is responded we will increase her metoprolol back to 150 mg twice daily in the evening of 913. We will restart her Coumadin we do not need to bridge with therapeutic heparin we will have her Coumadin be a 5 mg daily INR checks. I attempted to call the Coumadin clinic but she typically follows just with Dr. Rasmussen in cardiology with regarding her INRs (4) Hypertension: Plan: - On metoprolol 150 mg BID for a fib, as well as losartan 100 g daily. -We will resume her metoprolol 150 twice daily and hold her losartan at this time we will need to evaluate whether losartan should be continued at the day of discharge (5) Chronic kidney disease (CKD), stage III (moderate): Plan: - Cr 113, GFR 4 in August; BMP in AM. - Avoid nephrotoxins, renally dose medications as able, avoid NSAIDs for pain control. (6) Hyperlipidemia: Plan: - Continue statin. (7) Hypothyroidism: Plan: Continue levothyroxine. (8) Venous insufficiency of both lower extremities: Plan: - Elevate legs while sitting/in bed. Plan - Transfer from med/surg to PCU for afib/cardiac monitoring. - SCDs, will start back on Coumadin 5 with daily INR checks - Full Code. Admission and Anticipated Discharge Date Admission Date: June 13, 2022 Subjective Patient is doing well her pain is controlled her A. fib is slightly erratic she did have reduction in her dose of her metoprolol due to postoperative low blood pressure we will escalate her dose back to her usual. Review of Systems Review of Systems: Mild distress and fatigue no headache, no visual changes no speech or swallowing issues Musculoskeletal his chest pain from mastectomy no shortness of breath, cough or wheezes no abdominal pain, nausea or vomiting, diarrhea or constipation no dysuria, hematuria or frequency no focal joint pain or swelling no back pain, CVA tenderness or radicular pain no bruising, bleeding or rashes no focal signs of weakness or numbness or altered sensation no complaints of anxiety or depression.. Physical Exam Physical Exam: The patient appeared stable Vital signs as documented. Lungs are clear to auscultation and appear unlabored Cardiac exam, irregular and rapid at times.. No murmurs, rubs or gallops. Abdominal exam reveals normal bowel sounds, soft non tender, no masses Extremities are nonedematous and both pedal pulses are normal. The bandage on her left chest with a drain in place Neurologic exam is alert and oriented, no focal loss of strength or sensation Psychologically is without concerns for anxiety or depression. Results & Data Results & Data ([facility]) Vital Signs (Past 12 Hours) Vital Signs Temp Pulse Pulse Pulse Resp BP Pulse Ox 06/14/22 11:36 97.5 F L 122 H 18 107/64 92 06/14/22 06:16 108 H 06/14/22 07:27 98.2 F 98 H 16 138/85 91 06/14/22 06:34 100 H 06/14/22 04:53 131 H 06/14/22 03:52 98.1 F 124 H 18 133/86 94 O2 Del Method O2 Flow Rate 06/14/22 11:36 Nasal Cannula 1 06/14/22 06:16 06/14/22 07:27 Room Air 06/14/22 06:34 06/14/22 04:53 06/14/22 03:52 Room Air PG Care Time/CCT Total # of Minutes Spent Total Time Spent with Patient: Total time spent is greater than 50% in coordination of care (as documented) at patient's floor/unit and/or counseling patient: Coding Level of Care Code 11400 Subseq Hosp Care Lvl 3 Diagnoses History of mastectomy Z90.10 Breast cancer, left C50.912 Paroxysmal atrial fibrillation I48.0 Hypertension I10 Hypertension type: essential hypertension Chronic kidney disease (CKD), stage III (moderate) N18.3 Hyperlipidemia E78.5 Hyperlipidemia type: unspecified Hypothyroidism E03.9 Venous insufficiency of both lower extremities I87.2 (1) Hypertension Hypertension type: essential hypertension Qualified Code(s): I10 - Essential (primary) hypertension (2) Hyperlipidemia Hyperlipidemia type: unspecified Qualified Code(s): E78.5 - Hyperlipidemia, unspecified
[2022-06-14] MEDS: DIGOXIN 0.125 MG TAB PO SCH (15:17)
[2022-06-14] MEDS ORDERED: WARFARIN SOD 5 MG TAB PO SCH (16:00)
[2022-06-14] MEDS ORDERED: METOPROLOL TARTRATE 100 MG TAB PO SCH (21:00)
[2022-06-15] MEDS: oxyCODONE HCL IR 5 MG TAB (IMMEDIATE RELEASE) PO PRN ×2 (03:58→08:35)
[2022-06-15] MEDS: LEVOTHYROXINE SODIUM 50 MCG TABLET PO SCH (06:40)
[2022-06-15] MEDS: ceFAZolin 1000MG 1,000 MG/7.5 ML SYR IV SCH ×2 (07:18→14:24)
[2022-06-15 07:21] LABS: INR 1.2 (0.9-1.1); Prothrombin Time 12.6 Seconds (9.0-12.0)
[2022-06-15 07:24] LABS: BUN Creatinine Ratio 13.5 (10-20); Calcium 9.1 mg/dl (8.5-10.1); Creatinine Clr Calc Pharmacy 43.5 ml/min; Est GFR (African American) 65.2 ml/min; Est GFR (Non-African American) 56.2 ml/min; Potassium 4.2 mmol/L (3.5-5.1)
--- NOTE | 2022-06-15 08:06 | Surgery Progress Note ---
Date of Service June 15, 2022 Assessment & Plan (1) H/O left mastectomy: Plan: Sitting up in bed and eating breakfast Pain is better controlled dressing in place and we will change today Drain in place and she will be discharged with the drain She is receiving Coumadin and subcu heparin Try to have her ambulate in the hallway Probably needs 1 more day for her anticoagulation Possible discharge tomorrow with home health Admission and Anticipated Discharge Date Admission Date: June 13, 2022 Results & Data ([facility]) Vital Signs (Past 12 Hours) Vital Signs Temp Pulse Pulse Resp BP Pulse Ox O2 Del Method 06/15/22 07:31 68 06/15/22 06:43 37 C 69 18 133/77 92 Room Air 06/15/22 03:50 116 H 06/15/22 03:43 36.7 C 96 H 20 124/82 91 Room Air 06/14/22 23:07 37.1 C 112 H 18 97/65 L 90 Room Air PG Care Time/CCT Total # of Minutes Spent Total Time Spent with Patient: Total time spent is greater than 50% in coordination of care (as documented) at patient's floor/unit and/or counseling patient: Coding Level of Care Code None Diagnoses H/O left mastectomy Z90.12
[2022-06-15] MEDS: ATORVASTATIN 20 MG TAB PO SCH (08:28)
[2022-06-15] MEDS: METOPROLOL TARTRATE 50 MG TAB PO SCH ×2 (08:30→20:09)
[2022-06-15] MEDS: HEPARIN SOD 5,000 UNIT/0.5 ML VIAL SQ SCH ×2 (08:31→20:09)
[2022-06-15] MEDS: CALCIUM 600MG + VIT D 400 IU TAB PO SCH ×2 (08:31→20:09)
[2022-06-15] MEDS: OMEGA-3 (PURIFIED FISH OIL) 1 GM CAP PO SCH ×2 (08:31→20:09)
[2022-06-15] MEDS: DOCUSATE SODIUM 100 MG CAP PO SCH ×2 (08:34→20:08)
[2022-06-15] MEDS: SODIUM CHLORIDE 0.65% NA SOLN 45 ML (OCEAN) SCH ×2 (08:36→20:16)
--- NOTE | 2022-06-15 13:45 | Hospitalist Progress Note ---
Date of Service June 15, 2022 Assessment & Plan (1) History of mastectomy: Plan: - POD # 2, EBL 20 cc, without complications. МАРИНА drain in place. - Pain/ABX/IVF/diet/drain management/transfusion needs/activity per primary team (2) Breast cancer, left: Plan: - Invasive carcinoma and high-grade DCIS, hormonal positive, HER2 miranda negative with 5 cm mass diagnosed this summer. - Further treatment pending, sees Dr. Enciso with [facility]/onc. (3) Paroxysmal atrial fibrillation: Plan: - Tends to be in afib often/daily with HR typically in 100-110. Per cardiology, okay to remain at these rates given she is minimally symptomatic. - Metoprolol recently increased from 100 BID to 150 mg BID prior to surgery to achieve better rate control. - Patient doing well postoperative blood pressure is responded, metoprolol resumed back to 150 mg twice daily in the evening of 912. - Restarted her Coumadin at 5mg daily, doesn't need bridged, INR subtherapeutic today at 1.2, will give higher dose today 06/15 of 10mg x1 and then resume 5mg daily on 06/16 - I attempted to call the Coumadin clinic but she typically follows just with Dr. Rasmussen in cardiology with regarding her INRs - Converted back to NSR, transition off of tele to med/surg (4) Hypertension: Plan: - On metoprolol 150 mg BID for a fib, as well as losartan 100 mg daily at home - Resumed her metoprolol 150mg BID but given her low-normal BP, would not resume Losartan at this time (5) Chronic kidney disease (CKD), stage III (moderate): Plan: - Cr 113, GFR 4 in August; BMP in AM. - Avoid nephrotoxins, renally dose medications as able, avoid NSAIDs for pain control. (6) Hyperlipidemia: Plan: - Continue statin. (7) Hypothyroidism: Plan: - Continue levothyroxine. (8) Venous insufficiency of both lower extremities: Plan: - Elevate legs while sitting/in bed. Plan dc tele monitor. increased dose of coumadin today, repeat PT/INR tomorrow. PT/OT eval. Per RN and case management, pt now mentioning she is having some pain in her left foot. Will re-evaluate this afternoon and consider imaging if needed. above plan d/w Dr. Gonzales. Admission and Anticipated Discharge Date Admission Date: June 13, 2022 Subjective Patient seen on daily rounds this morning. Verbalizes no complaints/concerns. Denies cp or dyspnea. No palpitations. She converted back to NSR early this morning. Notified by RN this afternoon that family is concerned about her returning home alone and is requesting PT eval. Review of Systems Review of Systems: All systems reviewed and are unremarkable except as noted in HPI and below. Denies fever, chills, fatigue, headache, nasal congestion, sore throat, cough, chest pain, shortness of breath, palpitations, orthopnea, PND, abdominal pain, n/v/d, constipation, dysuria, hematuria, frequency, back pain, joint pain or swelling, easy bruising or bleeding, skin lesions or rashes. Physical Exam Physical Exam: GENERAL: 77 yo Well-developed, well-nourished elderly WF. NAD. LUNGS: Clear to auscultation bilaterally. No W/R/R. CARDIOVASCULAR: Regular rate and rhythm. ABDOMEN: Soft, non-tender and non-distended. BS normoactive x 4 quad. EXTREMITIES: No edema. Non-tender. Peripheral pulses +2/4. NEUROLOGIC: A&O x3. Nonfocal PSYCHIATRIC: Cooperative. Appropriate mood and affect. SKIN: Warm, dry, intact. No rashes or lesions. S/p left mastectomy, dressings in place. Results & Data Results & Data ([facility]) Vital Signs (Past 12 Hours) Vital Signs Temp Pulse Pulse Resp BP Pulse Ox O2 Del Method 06/15/22 11:42 37.1 C 68 20 109/69 93 Room Air 06/15/22 07:31 68 06/15/22 06:43 37 C 69 18 133/77 92 Room Air 06/15/22 03:50 116 H 06/15/22 03:43 36.7 C 96 H 20 124/82 91 Room Air Laboratory Results 06/14/22 06:33 06/15/22 06:16 PG Care Time/CCT Total # of Minutes Spent Total Time Spent with Patient: Total time spent is greater than 50% in coordination of care (as documented) at patient's floor/unit and/or counseling patient: Coding Level of Care Code 57884 Subseq Hosp Care Lvl 2 Diagnoses History of mastectomy Z90.10 Breast cancer, left C50.912 Paroxysmal atrial fibrillation I48.0 Hypertension I10 Hypertension type: essential hypertension Chronic kidney disease (CKD), stage III (moderate) N18.3 Hyperlipidemia E78.5 Hyperlipidemia type: unspecified Hypothyroidism E03.9 Venous insufficiency of both lower extremities I87.2 (1) Hypertension Hypertension type: essential hypertension Qualified Code(s): I10 - Essential (primary) hypertension (2) Hyperlipidemia Hyperlipidemia type: unspecified Qualified Code(s): E78.5 - Hyperlipidemia, unspecified
[2022-06-15] MEDS: ACETAMINOPHEN 325 MG TAB PO PRN (14:24)
[2022-06-15] MEDS: DIGOXIN 0.125 MG TAB PO SCH (15:21)
[2022-06-15] MEDS ORDERED: WARFARIN SOD 10 MG TAB PO ONE (16:00)
--- NOTE | 2022-06-15 17:25 | XRay Report ---
XR foot LT min 3V routine CLINICAL HISTORY: Left foot pain. COMPARISON: None FINDINGS: There is mild hallux valgus. No acute fracture is identified. An 8 mm ossicle along the me dial aspect of the left first metatarsal is chronic. Moderate osteoarthritis of first metatarsophalan geal joint. Tarsometatarsal joints are intact. No spurring is noted. Mild midfoot osteoarthritis. IMPRESSION: 1. No acute fracture or dislocation within the left foot. 2. Mild to moderate osteoarthritis within multiple articulations of the left foot, as above. ACT 112: Negative or not required by law. Electronically signed by: Donte Amezcua M.D. 06/15/2022 5:22 PM
[2022-06-16] MEDS: ceFAZolin 1000MG 1,000 MG/7.5 ML SYR IV SCH ×4 (00:03→23:17)
[2022-06-16] MEDS: LEVOTHYROXINE SODIUM 50 MCG TABLET PO SCH (06:13)
[2022-06-16] MEDS: ATORVASTATIN 20 MG TAB PO SCH (08:13)
[2022-06-16] MEDS: CALCIUM 600MG + VIT D 400 IU TAB PO SCH ×2 (08:13→19:56)
[2022-06-16] MEDS: OMEGA-3 (PURIFIED FISH OIL) 1 GM CAP PO SCH ×2 (08:14→19:56)
[2022-06-16] MEDS: METOPROLOL TARTRATE 50 MG TAB PO SCH ×2 (08:15→19:54)
[2022-06-16] MEDS: HEPARIN SOD 5,000 UNIT/0.5 ML VIAL SQ SCH ×2 (08:16→19:55)
[2022-06-16] MEDS: SODIUM CHLORIDE 0.65% NA SOLN 45 ML (OCEAN) SCH ×2 (08:16→19:57)
[2022-06-16] MEDS: DOCUSATE SODIUM 100 MG CAP PO SCH ×2 (08:42→20:00)
[2022-06-16] MEDS: MoRPHine SULFATE 2 MG/ML CARP IV PRN (08:47)
[2022-06-16 08:52] LABS: INR 2.7 (0.9-1.1); Prothrombin Time 26.9 Seconds (9.0-12.0)
[2022-06-16 09:06] LABS: Calcium 9.5 mg/dl (8.5-10.1); Creatinine Clr Calc Pharmacy 41.8 ml/min; Est GFR (African American) 62.1 ml/min; Est GFR (Non-African American) 53.5 ml/min; Potassium 3.8 mmol/L (3.5-5.1)
--- NOTE | 2022-06-16 11:50 | Hospitalist Progress Note ---
Date of Service June 16, 2022 Assessment & Plan (1) History of mastectomy: Plan: - S/P L Mastectomy d/t high grade DCIS, hormonal positive, HER2 neg breast ca. - POD # 3, EBL 20 cc, without complications. - Pain/ABX/IVF/diet/drain management/transfusion needs/activity per primary team - Further treatment pending, sees Dr. Enciso with [facility]/onc. (2) Paroxysmal atrial fibrillation: Plan: - Tends to be in afib often/daily with HR typically in 100-110. Per cardiology, okay to remain at these rates given she is minimally symptomatic. - Metoprolol recently increased from 100 BID to 150 mg BID prior to surgery to achieve better rate control. - Patient doing well postoperative blood pressure is responded, metoprolol resumed back to 150 mg twice daily in the evening of 912. - Restarted her Coumadin at 5mg daily, doesn't need bridged, INR subtherapeutic at 1.2, given 10mg x1 on 06/15 and resumed 5mg daily on 06/16 - I attempted to call the Coumadin clinic but she typically follows just with Dr. Rasmussen in cardiology with regarding her INRs - Converted back to NSR, transition off of tele to med/surg - INR therapeutic 06/16 at 2.7 (3) Foot pain, bilateral: Plan: - Had xray of L foot yesterday only showing moderate OA - Now c/o R foot pain to therapy staff, obtain xray of R foot, again suspect OA - Topical Voltaren and APAP - No need for narcotics for foot pain - PT/OT eval and d/c planning (4) Hypertension: Plan: - On metoprolol 150 mg BID for a fib, as well as losartan 100 mg daily at home - Resumed her metoprolol 150mg BID but given current BP readings, would not resume Losartan at this time - Continue to hold Losartan, if BP continues to trend back up, can resume Losartan (5) Chronic kidney disease (CKD), stage III (moderate): Plan: - Cr 113, GFR 4 in August; BMP in AM. - Avoid nephrotoxins, renally dose medications as able, avoid NSAIDs for pain control. (6) Hyperlipidemia: Plan: - Continue statin. (7) Hypothyroidism: Plan: - Continue levothyroxine. (8) Venous insufficiency of both lower extremities: Plan: - Elevate legs while sitting/in bed. Plan At this time, patient is medically stable, I have no further recommendations. Imaging of right foot ordered, will follow up on results. May need SNF w/ rehab V home with home health. Will sign off, but continue to follow peripherally with daily chart checks. Please feel free to contact with any questions/concerns that arise. Plan d/w Dr. Wilson. Admission and Anticipated Discharge Date Admission Date: June 13, 2022 Subjective Patient seen on daily rounds this morning. She notes that her L foot pain has improved after apparently receiving Morphine. Therapy in to evaluate patient this morning, per therapy now complaining of R foot pain but did not have that complaint during my visit with her this morning. She denies cp or dyspnea. No incisional pain. Denies fever/chills. Review of Systems Review of Systems: All systems reviewed and are unremarkable except as noted in HPI and below. Denies fever, chills, fatigue, headache, nasal congestion, sore throat, cough, chest pain, shortness of breath, palpitations, orthopnea, PND, abdominal pain, n/v/d, constipation, dysuria, hematuria, frequency, back pain, easy bruising or bleeding, skin lesions or rashes. Physical Exam Physical Exam: GENERAL: 77 yo Well-developed, well-nourished elderly WF. NAD. LUNGS: Clear to auscultation bilaterally. No W/R/R. CARDIOVASCULAR: Regular rate and rhythm. ABDOMEN: Soft, non-tender and non-distended. BS normoactive x 4 quad. EXTREMITIES: No edema. Non-tender. Peripheral pulses +2/4. NEUROLOGIC: A&O x3. Nonfocal PSYCHIATRIC: Cooperative. Appropriate mood and affect. SKIN: Warm, dry, intact. No rashes or lesions. S/p left mastectomy, dressings in place. Results & Data Results & Data ([facility]) Vital Signs (Past 12 Hours) Vital Signs Temp Pulse Resp BP Pulse Ox O2 Del Method 06/16/22 06:29 37.1 C 77 18 137/76 90 Room Air Laboratory Results PT=26.9, INR=2.7 Diagnostic Findings Foot X-Ray 06/15/22 16:39 XR foot LT min 3V routine CLINICAL HISTORY: Left foot pain. COMPARISON: None FINDINGS: There is mild hallux valgus. No acute fracture is identified. An 8 mm ossicle along the medial aspect of the left first metatarsal is chronic. Moderate osteoarthritis of first metatarsophalangeal joint. Tarsometatarsal joints are intact. No spurring is noted. Mild midfoot osteoarthritis. IMPRESSION: 1. No acute fracture or dislocation within the left foot. 2. Mild to moderate osteoarthritis within multiple articulations of the left foot, as above. ACT 112: Negative or not required by law. Electronically signed by: Donte Amezcua M.D. 06/15/2022 5:22 PM PG Care Time/CCT Total # of Minutes Spent Total Time Spent with Patient: Total time spent is greater than 50% in coordination of care (as documented) at patient's floor/unit and/or counseling patient: Coding Level of Care Code 83308 Subseq Hosp Care Lvl 2 Diagnoses History of mastectomy Z90.10 Paroxysmal atrial fibrillation I48.0 Foot pain, bilateral M79.671; M79.672 Hypertension I10 Hypertension type: essential hypertension Chronic kidney disease (CKD), stage III (moderate) N18.3 Hyperlipidemia E78.5 Hyperlipidemia type: unspecified Hypothyroidism E03.9 Venous insufficiency of both lower extremities I87.2 (1) Hypertension Hypertension type: essential hypertension Qualified Code(s): I10 - Essential (primary) hypertension (2) Hyperlipidemia Hyperlipidemia type: unspecified Qualified Code(s): E78.5 - Hyperlipidemia, unspecified
--- NOTE | 2022-06-16 12:36 | Surgery Progress Note ---
Date of Service June 16, 2022 Assessment & Plan (1) Breast cancer, left: Plan: POD 3 mastectomy INR 2.7 d/c planning has walker at home if needed Admission and Anticipated Discharge Date Admission Date: June 13, 2022 Subjective having right foot pain, XR pending, left foot feeling better, seen by PT earlier, arranging for family help at home Physical Exam Chest (Breasts): Additional Comments: МАРИНА 75 cc overnight Results & Data ([facility]) Vital Signs (Past 12 Hours) Vital Signs Temp Pulse Resp BP Pulse Ox O2 Del Method 06/16/22 06:29 37.1 C 77 18 137/76 90 Room Air PG Care Time/CCT Total # of Minutes Spent Total Time Spent with Patient: Total time spent is greater than 50% in coordination of care (as documented) at patient's floor/unit and/or counseling patient: Coding Level of Care Code None Diagnoses Breast cancer, left C50.912
[2022-06-16] MEDS: DICLOFENAC SOD 1% GEL 100 GM TUBE EXT SCH ×3 (12:51→23:17)
--- NOTE | 2022-06-16 14:11 | XRay Report ---
XR foot RT min 3V routine CLINICAL HISTORY: right foot pain TECHNIQUE: 3 views of the right foot were obtained. Comparison: None available at the time of this dictation. FINDINGS: No fractures are present. Medial ossific fragments in the first metatarsal head is seen. Moderate ost eoarthritic changes are seen most prominent at the interphalangeal joints. Soft tissue swelling is se en about the foot. IMPRESSION: No acute fracture or dislocation. Changes of osteoarthritis are seen most prominent in the first meta tarsophalangeal joint and interphalangeal joints. ACT 112: Negative or not required by law. Electronically signed by: Dusty Matute M.D. 06/16/2022 2:09 PM
[2022-06-16] MEDS ORDERED: WARFARIN SOD 5 MG TAB PO SCH (16:00)
[2022-06-16] MEDS: DIGOXIN 0.125 MG TAB PO SCH (16:46)
[2022-06-17] MEDS: DICLOFENAC SOD 1% GEL 100 GM TUBE EXT SCH ×2 (05:29→11:03)
[2022-06-17] MEDS: LEVOTHYROXINE SODIUM 50 MCG TABLET PO SCH (05:29)
[2022-06-17] MEDS: ceFAZolin 1000MG 1,000 MG/7.5 ML SYR IV SCH (05:34)
[2022-06-17 08:00] LABS: BUN Creatinine Ratio 15.9 (10-20); Calcium 9.4 mg/dl (8.5-10.1); Creatinine Clr Calc Pharmacy 50.9 ml/min; Est GFR (African American) 78.9 ml/min; Est GFR (Non-African American) 68.1 ml/min; Potassium 3.8 mmol/L (3.5-5.1)
[2022-06-17] MEDS: CALCIUM 600MG + VIT D 400 IU TAB PO SCH (08:37)
[2022-06-17] MEDS: OMEGA-3 (PURIFIED FISH OIL) 1 GM CAP PO SCH (08:37)
[2022-06-17] MEDS: SODIUM CHLORIDE 0.65% NA SOLN 45 ML (OCEAN) SCH (08:38)
[2022-06-17] MEDS: METOPROLOL TARTRATE 50 MG TAB PO SCH (08:38)
[2022-06-17] MEDS: DOCUSATE SODIUM 100 MG CAP PO SCH (09:51)
[2022-06-17] MEDS: HEPARIN SOD 5,000 UNIT/0.5 ML VIAL SQ SCH (09:52)
[2022-06-17] MEDS: ATORVASTATIN 20 MG TAB PO SCH (10:20)
[2022-06-17] MEDS: ACETAMINOPHEN 325 MG TAB PO PRN (10:21)
--- NOTE | 2022-06-17 12:45 | Discharge Summary (DS) ---
DATE OF ADMISSION: 06/13/2022. DATE OF DISCHARGE: 06/17/2022. PRINCIPAL DIAGNOSIS: Left breast cancer. PROCEDURE: The patient underwent left mastectomy with sentinel lymph node biopsy. STAFF SURGEON: Harish Finn MD HISTORY OF PRESENT ILLNESS: The patient is a 77-year-old female with known left breast cancer for de finitive surgery. The patient was brought in the hospital on 06/13/2022 where she underwent left mas tectomy with sentinel lymph node biopsy. She did well through the operation. Postoperatively, she w as somewhat slow to resume her activity. She was kept in the PCU for possible ectopy and given IV me dications. She was placed on subcutaneous heparin and slowly placed back on her warfarin. She did h ave some mild mobility issues for several days, but did advance and is felt stable today for discharg e with her drain to be followed by the home nurses and also to come into the surgical clinic next aquilino romano Job ID: [id number]
== END 2022-06-17 13:23 | disposition home or self-care (01) ==
LOC: ASU 06:30 → 3W 11:49 → INTOOBSV 11:49 → 2S 17:49 → 3W 06-15 15:52

== ENCOUNTER 2023-05-29 05:54 | Observation (INO) ==
--- NOTE | 2023-05-22 14:09 | Anesthesiology Consultation ---
Date of Service May 22, 2023 Assessment & Plan (1) Encounter for pre-operative examination: Chart Review Chart Review: Acceptable Risk for Surgery and Patient NOT seen in Pre Admission Testing - Check coags AM DOS - Will recheck EKG DOS - Check BSG AM DOS -Infectious Disease screening: Per PAT nursing assessment on 04/25/23. No known infectious disease contacts in past 10 days or current infectious disease symptoms. No recent travel outside the country. Last seen by cardio 02/03/23= Patient presents for acute visit due to dizziness. Dizziness symptoms resolved with stopping digoxin. Dizziness seem to occur in the setting of a lot of stress regarding health of her daughter. Unclear if symptoms are really secondary to medication. However, his heart rates have been reasonably controlled on metoprolol alone we will discontinue digoxin going forward. If recurrent symptoms consider reducing metoprolol or losartan. Continue warfarin as anticoagulation. No other changes to current medications. Patient okay to undergo possible right prophylactic mastectomy without additional cardiac testing. Follow-up in 6 months. Left mastectomy, axillary sentinel LN biopsy 06/13/22= Done under GA with Grade 2 view with MAC #4. ETT #7.0. History Surgery Operation Date: 05/29/23 08:20 Proposed Procedures p Left Mastectomy Scar Revision - Lilly Rodriguez MD s Prophylactic Right Mastectomy with [place] Lymph Node Biopsy - Harish Fnin MD, FACS Height/Weight Height: 4 ft 11.5 in Weight: 66.224 kg Allergies Allergy/AdvReac Type Severity Reaction Status Date / Time ciprofloxacin Allergy Intermediate ITCHY Verified 05/01/23 14:37 metronidazole Allergy Intermediate ITCHY Verified 05/01/23 14:37 cheese AdvReac Intermediate "real Verified 05/01/23 14:37 cheese" - n/v Medications Home Medications Medication Instructions Recorded Confirmed Last Taken calcium carbonate 600 mg-vitamin 1 tab PO BID 03/06/19 05/01/23 09/15/22 08:00 D3 20 mcg (800 unit) tablet montelukast 10 mg tablet 10 mg PO DAILY PRN SOB and 03/06/19 05/15/23 Unknown Wheezing #90 tabs omega-3 acid ethyl esters 1 gram 1 cap PO BID 03/06/19 05/01/23 09/15/22 08:00 capsule sodium chloride 0.65 % nasal spray 2 sprays intranasal BID #1 mL 03/06/19 05/15/2322 08:00 aerosol docusate sodium 100 mg capsule 200 mg PO BID 05/13/19 05/15/23 09/15/22 08:00 Mattress (Air or other) #1 ea 07/12/21 05/15/23 Unknown compress.stocking,knee,reg,med #2 ea 07/12/21 05/15/23 Unknown anastrozole 1 mg tablet 1 mg PO QAM 09/13/22 05/15/23 09/15/22 metoprolol tartrate 100 mg tablet 150 mg PO BID #270 tabs 10/18/22 05/15/23 Unknown warfarin 1 mg tablet 2 mg PO QPM #120 tabs 12/13/22 05/15/23 Unknown metformin 500 mg tablet,extended 500 mg PO QAM 02/06/23 05/15/23 Unknown release 24 hr albuterol sulfate 90 mcg/actuation 2 puff inhalation UD PRN Shortness 03/01/23 05/15/23 Unknown aerosol inhaler Of Breath #2 grams atorvastatin 20 mg tablet 20 mg PO QAM #90 tabs 03/13/23 05/15/23 Unknown levothyroxine 50 mcg tablet 50 mcg PO QAM #90 tabs 03/13/23 05/15/23 Unknown losartan 100 mg tablet 100 mg PO QPM #90 tabs 03/13/23 05/15/23 Unknown ascorbic acid (vitamin C) 500 mg 500 mg PO QAM 04/25/23 05/01/23 Unknown tablet (Vitamin C) tobramycin 0.3 % eye drops 2 drp ophthalmic (eye) QID #5 mL 05/08/23 05/15/23 Unknown hydrocodone 5 mg-acetaminophen 325 1 tab PO Q4H PRN pain 3 days #18 05/15/23 05/15/23 Unknown mg tablet tabs Past Medical History Medical History (Updated 05/22/23 @ 14:32 by Kaila Finnegan PA-C) Acid reflux Controlled with diet Anticoagulant long-term use warfarin Atrial flutter hx 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, estrogen receptor positive Left breast cancer - dx'ed summer- s/p left mastectomy Left limb restriction Chronic kidney disease (CKD), stage III (moderate) Stable per patient; follows with nephro PRN Chronic low back pain DDD (degenerative disc disease) Diverticulitis No recent flares Family history of reaction to anesthesia sister with reported terminal operations manager memory changes after anesthesia Hx of bronchitis Uses inhaler PRN Hx of Clostridium difficile infection 2006 Hyperlipidemia Hypertension Hypothyroidism Irritable bowel syndrome hx, controlled now Osteopenia Paroxysmal atrial fibrillation Dx/ed 2012 with episodes of RVR, burden stable per [place] cardio; F/U DR. MILLER, [place] On Warfarin Periodic limb movement disorder Prediabetes Thyroid disease takes levothyroxine d/t medication induced effect on thyroid - pt not sure details of Uterine prolapse Venous insufficiency of both lower extremities Past Family History Family History Father Congestive heart failure Heart disease Myocardial infarction Mother Thyroid disorder Sister Liver cancer Thyroid cancer Alzheimer disease Breast cancer Daughter Atrial fibrillation Kidney disease End stage, on dialysis Brother Family history of colon cancer Cancer Other Family history of pancreatic cancer Denies family history of Ovarian cancer Prostate cancer Diabetes Lung cancer Colorectal cancer Stroke Past Surgical History Surgical History H/O breast biopsy MULTIPLE H/O colonoscopy H/O left mastectomy (06/13/22) Left mastectomy with sentinel lymph node biopsy. Dr. Finn *LEFT LIMB RESTRICTION History of arthroscopy of left shoulder History of bunionectomy R&L Social History Smoking Status: Never smoker Do You Dip or Chew Tobacco: No Hx Alcohol Use: No Hx Substance Use: No substance use type: does not use Lab Results Anesthesia Preop Results Results Anesthesia Widget: WBC 7.12 K/ul (4.8-10.8) 05/16/23 Hgb 14.7 g/dl (12.0-16.0) 05/16/23 Hct 43.6 % (37.0-47.0) 05/16/23 Plt 252 K/uL (130-400) 05/16/23 Na 138 mmol/L (136-145) 05/16/23 K 3.9 mmol/L (3.5-5.1) 05/16/23 Cl 103 mmol/L (98-107) 05/16/23 CO2 27 mmol/L (21-32) 05/16/23 BUN 23 mg/dl (6-23) 05/16/23 Creat 0.99 mg/dl (0.6-1.2) 05/16/23 Glucose Level 135 mg/dl (70-99(Fasting)) H 05/16/23 PT 16.7 Seconds (9.0-12.0) H 05/16/23 INR 1.6 (0.9-1.1) H 05/16/23 Testing Electrocardiogram Date: 09/15/22 Atrial fibrillation with RVR at 120bpm Diffuse nonspecific ST abnormality When compared to EKG from May 31, 2022- no significant change was found Chest X-Ray Date: 03/01/23 Findings: + NAD FINDINGS: PA and lateral chest radiographs are compared to chest x-ray and chest CT dated 09/15/2022. The heart is mildly enlarged. The pulmonary vasculature is noncongested. Chronic interstitial thickening is similar to previous. There is bibasilar scarring/atelectasis. The lungs and pleural spaces are otherwise clear. There is no pneumothorax. The skeletal structures are osteopenic. The bony thorax appears intact. Degenerative change is noted in the shoulders and thoracic spine. Echocardiogram Date: 02/09/21 LV Function: normal Other Findings: no LVH EF 65-70% No LV regional wall motion abnormalities Mild aortic insufficiency PASP 35 to 40 mmHg Compared with prior study on 12/06/13- no significant change Other Testing 2:1 wireless event monitoring 04/17/22= Paroxysmal atrial fibrillation/atrial flutter: AF burden 17%. 2 episodes > 2 hrs. Rare PVCs. Symptoms of heart racing/skipped beat mostly correlated with AF in 110-120s
[2023-05-29] MEDS ORDERED: LACTATED RINGER'S 1,000 ML IV SCH (06:00)
[2023-05-29] MEDS ORDERED: ceFAZolin 2000MG 2,000 MG/15 ML SYR IV SCH (06:00)
[2023-05-29] MEDS ORDERED: ACETAMINOPHEN 1000 MG/100 ML IV IV ONE (06:23)
[2023-05-29] MEDS ORDERED: FAMOTIDINE/PF 20 MG/2 ML VIAL IV ONE (06:23)
--- NOTE | 2023-05-29 06:46 | History & Physical Report ---
Date of Service May 29, 2023 Assessment & Plan (1) History of mastectomy: Plan: Patient with a history of left breast cancer and left mastectomy She is now for prophylactic right mastectomy with sentinel lymph node biopsy She will also undergo revision of her left mastectomy site and also closure of her right mastectomy site Patient will be under general anesthesia and require observation History of Present Illness Primary Care Provider: Larisa Lemon PA-C 78-year-old female with a history of left breast cancer status post left mastectomy Patient requests a prophylactic right mastectomy and also revision of her left mastectomy and closure of her right mastectomy by Dr. Rodriguez/plastic surgery Allergies Allergy/AdvReac Type Severity Reaction Status Date / Time ciprofloxacin Allergy Intermediate ITCHY Verified 05/29/23 06:17 metronidazole Allergy Intermediate ITCHY Verified 05/29/23 06:17 cheese AdvReac Intermediate "real Verified 05/29/23 06:17 cheese" - n/v Home Medications Medication Instructions Recorded Confirmed Type calcium carbonate 600 mg-vitamin 1 tab PO BID 03/06/19 05/29/23 History D3 20 mcg (800 unit) tablet montelukast 10 mg tablet 10 mg PO DAILY PRN SOB and 03/06/19 05/29/23 History Wheezing #90 tabs omega-3 acid ethyl esters 1 gram 1 cap PO BID 03/06/19 05/29/23 History capsule sodium chloride 0.65 % nasal spray 2 sprays intranasal BID #1 mL 03/06/19 05/29/23 History aerosol docusate sodium 100 mg capsule 200 mg PO BID 05/13/19 05/29/23 History Mattress (Air or other) #1 ea 07/12/21 05/29/23 Rx compress.stocking,knee,reg,med #2 ea 07/12/21 05/29/23 Rx anastrozole 1 mg tablet 1 mg PO QAM 09/13/22 05/29/23 History metoprolol tartrate 100 mg tablet 150 mg PO BID #270 tabs 10/18/22 05/29/23 Rx warfarin 1 mg tablet 2 mg PO QPM #120 tabs 12/13/22 05/29/23 Rx metformin 500 mg tablet,extended 500 mg PO QAM 02/06/23 05/29/23 History release 24 hr albuterol sulfate 90 mcg/actuation 2 puff inhalation UD PRN Shortness 03/01/23 05/29/23 Rx aerosol inhaler Of Breath #2 grams atorvastatin 20 mg tablet 20 mg PO QAM #90 tabs 03/13/23 05/29/23 Rx levothyroxine 50 mcg tablet 50 mcg PO QAM #90 tabs 03/13/23 05/29/23 Rx losartan 100 mg tablet 100 mg PO QPM #90 tabs 03/13/23 05/29/23 Rx ascorbic acid (vitamin C) 500 mg 500 mg PO QAM 04/25/23 05/29/23 History tablet (Vitamin C) tobramycin 0.3 % eye drops 2 drp ophthalmic (eye) QID #5 mL 05/08/23 05/29/23 Rx hydrocodone 5 mg-acetaminophen 325 1 tab PO Q4H PRN pain 3 days #18 05/15/23 05/29/23 Rx mg tablet tabs Past Med/Surg History Medical History Acid reflux Controlled with diet Anticoagulant long-term use warfarin Atrial flutter hx 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, estrogen receptor positive Left breast cancer - dx'ed Summer of 2021- s/p left mastectomy Left limb restriction Chronic kidney disease (CKD), stage III (moderate) Stable per patient; follows with nephro PRN Chronic low back pain DDD (degenerative disc disease) Diverticulitis No recent flares Family history of reaction to anesthesia sister with reported halfway memory changes after anesthesia Hx of bronchitis Uses inhaler PRN Hx of Clostridium difficile infection 2006 Hyperlipidemia Hypertension Hypothyroidism Irritable bowel syndrome hx, controlled now Osteopenia Paroxysmal atrial fibrillation Dx/ed 2012 with episodes of RVR, burden stable per [facility]; F/U CAILIN SALGUERO On Warfarin Periodic limb movement disorder Prediabetes Thyroid disease takes levothyroxine d/t medication induced effect on thyroid - pt not sure details of Uterine prolapse Venous insufficiency of both lower extremities Surgical History H/O breast biopsy MULTIPLE H/O colonoscopy H/O left mastectomy (06/13/22) Left mastectomy with sentinel lymph node biopsy. Dr. Finn *LEFT LIMB RESTRICTION History of arthroscopy of left shoulder History of bunionectomy R&L Family History Father Congestive heart failure Heart disease Myocardial infarction Mother Thyroid disorder Sister Liver cancer Thyroid cancer Alzheimer disease Breast cancer Daughter Atrial fibrillation Kidney disease End stage, on dialysis Brother Family history of colon cancer Cancer Other Family history of pancreatic cancer Denies family history of Ovarian cancer Prostate cancer Diabetes Lung cancer Colorectal cancer Stroke Social History Smoking Status: Never smoker Second Hand Exposure: Yes (hx); Do You Dip or Chew Tobacco: No; Hx Alcohol Use: No Hx Substance Use: No Preferred Language: Italian Communication Ability: Effective Visual Impairment: No Limitations Hearing Ability: Normal Customer Relations Consultant Required: No Beliefs That Will Affect Care: None marital status: / Current Living Situation: Family Current Living Situation Comment: DAUGHTER current occupational status: retired How many Children do You have: 4 Feels Safe at Home: Yes Safety Concerns: Feels Safe At This Time Childhood Exposure to Second-Hand Smoke: No Diet: regular caffeine: No during the past year weight has: remained stable Dental Care, Regularly: Yes Physical Activity Frequency: 1-2 Times per Week Seatbelt Use: always Sunscreen Use: Yes Assistive Devices: Glasses Review of Systems All systems reviewed & are unremarkable except as noted in HPI & below Physical Exam Physical Exam: She is status post left mastectomy Constitutional: well developed and well nourished; no acute distress Eyes: + anicteric sclerae Respiratory: normal respiratory effort; no respiratory distress Cardiovascular: Rate/Rhythm: regular rate Gastrointestinal (Abdomen): Nondistended Musculoskeletal: Gait: normal gait Skin: no rashes, warm and dry Neurologic: awake Psychiatric: Orientation: alert Results & Data Vital Signs (Past 12 Hours) Vital Signs Temp Pulse Resp BP Pulse Ox O2 Del Method 05/29/23 06:25 36.7 C 68 20 157/79 H 97 Room Air
[2023-05-29 07:00] LABS: INR 1.1 (0.9-1.1); Partial Thromboplastin Ratio 1.1; Prothrombin Time 11.6 Seconds (9.0-12.0)
[2023-05-29] MEDS ORDERED: MIDAZOLAM HCL 1 MG/ML 2ML VIAL ONE (07:38)
[2023-05-29] MEDS ORDERED: fentaNYL citrate PF 100 MCG/2 ML VIAL ONE (07:38)
[2023-05-29] MEDS ORDERED: LIDOCAINE 2% 2 ML VIAL/AMP(20MG/ML) INFIL ONE ×3 (07:46→07:50)
[2023-05-29] MEDS ORDERED: ONDANSETRON INJ 2 MG/ML 2 ML VIAL ONE (07:50)
[2023-05-29] MEDS ORDERED: PROPOFOL IV EMULSION 10 MG/ML 20 ML VIAL IV ONE (07:50)
[2023-05-29] MEDS ORDERED: ROCURONIUM BROMIDE 10 MG/ML 5 ML VIAL IV ONE ×2 (07:50→12:02)
[2023-05-29] MEDS ORDERED: DEXAMETHASONE SOD INJ 4 MG/ML VIAL ONE (07:50)
[2023-05-29] MEDS ORDERED: METOCLOPRAMIDE HCL INJ 5 MG/ML 2 ML VIAL ONE (07:50)
[2023-05-29] MEDS ORDERED: BUPIVACAINE 0.5 % 5 MG/1 ML MPF 30ML VIAL ONE (08:39)
[2023-05-29] MEDS ORDERED: LIDOCAINE 1%/EPINEPHRINE 1:100,000 20 ML VIAL ONE (08:40)
[2023-05-29] MEDS ORDERED: BUPIVACAINE 0.25% PF 30 ML VIAL ONE (08:40)
--- NOTE | 2023-05-29 08:46 | History & Physical Bridge Note ---
Date of Service May 29, 2023 History & Physical Bridge Note I have examined the patient, reviewed the History & Physical and in the interval since the performance of the History & Physical I have noted the following changes of clinical significance: no changes noted
--- NOTE | 2023-05-29 08:55 | Nuclear Medicine Report ---
RIGHT BREAST RADIOTRACER INJECTION FOR LYMPHOSCINTIGRAPHY CLINICAL HISTORY: BREAST CA COMPARISON STUDY: Mammogram March 28, 2023. PROCEDURE: The procedure, risks and benefits were discussed with the patient and informed consent was obtained. The procedure was performed by Dr. Amezcua following a timeout. Skin of the right breast was prepped in typical fashion. A total of 491.46 uCi of Lymphoseek was injected in 5 intradermal al iquots within the right periareolar distribution at 8:20 AM on May 29, 2023. Patient tolerated the procedure well and no immediate complications were evident. No imaging was requested at this time. IMPRESSION: Right breast radiotracer injection for lymphoscintigraphy. ACT 112: Negative or not required by law. Electronically signed by: Donte Amezcua M.D. 05/29/2023 8:53 AM
[2023-05-29] MEDS ORDERED: PROMETHAZINE HCL 6.25 MG in SODIUM CHLORIDE 0.9% 50 ML IV PRN (09:16)
[2023-05-29] MEDS ORDERED: ATROPINE SULFATE 0.1 MG/ML 10ML SYR IV PRN (09:16)
[2023-05-29] MEDS ORDERED: ESMOLOL HCL INJ 10 MG/ML 10ML VIAL IV ONE (10:03)
[2023-05-29] MEDS ORDERED: METOPROLOL TARTRATE 1 MG/ML VIAL IV ONE ×3 (10:03→13:33)
[2023-05-29] MEDS ORDERED: ePHEDrine sulfate 50 MG/ML SYR ONE (10:37)
[2023-05-29] MEDS ORDERED: PHENYLEPHRINE 100MCG/ML 5ML SYR ONE (10:37)
[2023-05-29] MEDS ORDERED: SUGAMMADEX SODIUM 200 MG/2 ML VIAL IV ONE (10:54)
--- NOTE | 2023-05-29 11:20 | Post Operative Brief Note ---
PG Immediate Post Op with CF Date of Surgery May 29, 2023 Pre & Post Diagnosis Operation Date: 05/29/23 09:00 Pre-Op Diagnosis: Left Breast Cancer Post-Op Diagnosis: Left Breast Cancer I identified the patient and participated in the time-out.: Yes Procedure Operation Date: 05/29/23 09:00 Actual Procedures p Right Prophylactic Mastectomy with [place] Lymph Node Biopsy(Right) - Harish Finn MD, FACS p Left Mastectomy Scar Revision, Right Mastectomy Incision Closure(Left) - Lilly Rodriguez MD Surgeon Harish Finn MD, FACS Patient Support Representative c zackary for Dr. Finn Estimated Blood Loss 20 Findings Consistent with Post-Op Diagnosis [place] lymph nodes and right breast tissue Specimens Specimen Description: A. Right Axillary Tissue B. Right Axillary [place] Lymph Nodes C. Right Breast, Long Silk Lateral Drains Silver Catheter and Sharif-Victor Drain (19fr)
--- NOTE | 2023-05-29 11:23 | Operative Report ---
PG Post Operative Report Pre & Post Diagnosis Operation Date: 05/29/23 09:00 Pre-Op Diagnosis: Left Breast Cancer Post-Op Diagnosis: Left Breast Cancer I identified the patient and participated in the time-out.: Yes Procedure Operation Date: 05/29/23 09:00 Actual Procedures p Right Prophylactic Mastectomy with [place] Lymph Node Biopsy(Right) - Harish Finn MD, FACS p Left Mastectomy Scar Revision, Right Mastectomy Incision Closure(Left) - Lilly Rodriguez MD Surgeon Harish Finn MD, FACS Religious Education Teacher elsy raymundo for Dr. Finn Estimated Blood Loss 20 Findings Consistent with Post-Op Diagnosis [place] lymph nodes on the right and right breast tissue Specimens [place] lymph nodes and right breast tissue Description of Procedure Patient brought in the operating room placed the operating room table in the supine position Her arms were extended onto arm boards and rolls were placed under her shoulders Pads were placed under her arms Her chest was prepped and draped using Betadine in the usual fashion Initially the right axilla was approached skin and subcutaneous tissue anesthetizing half percent plain plain Marcaine Incision was made carried dissection down identifying the sentinel lymph nodes which were sent for routine pathology At this point mastectomy was performed making superior and inferior incisions to construct superior and inferior skin flaps dissecting the breast tissue away from the subcutaneous tissue down to the chest wall and then dissecting the breast tissue away from the chest wall-multiple vessels were ligated using 2-0 and 0 chromic suture The specimen was marked with a long silk suture lateral A 2-0 plain suture was used in the subcutaneous tissue in the right axilla Dr. Rodriguez and her team came into the OR to proceed with their portion of the operation Patient tolerated procedure well My assistant branch manager help with prepping draping sentinel lymph node biopsy and right mastectomy I attest to the content of the Intraoperative Record and any orders documented therein. Any exceptions are noted below.
--- NOTE | 2023-05-29 12:44 | Post Operative Brief Note ---
PG Immediate Post Op with CF Date of Surgery May 29, 2023 Pre & Post Diagnosis Operation Date: 05/29/23 09:00 Pre-Op Diagnosis: Left Breast Cancer Post-Op Diagnosis: Left Breast Cancer I identified the patient and participated in the time-out.: Yes Procedure Operation Date: 05/29/23 09:00 Actual Procedures p Right Prophylactic Mastectomy with [place] Lymph Node Biopsy(Right) - Harish Finn MD, FACS p Left Mastectomy Scar Revision, Right Mastectomy Incision Closure(Left) - Lilly Rodriguez MD Surgeon Lilly Rodriguez MD Correction Officer [facility] elsy raymundo for Dr. Finn Estimated Blood Loss 20 Findings Consistent with Post-Op Diagnosis Specimens Specimen Description: A. Right Axillary Tissue B. Right Axillary [place] Lymph Nodes C. Right Breast, Long Silk Lateral Drains Silver Catheter and Sharif-Victor Drain (19fr) Anesthesia Type General Complications none
[2023-05-29] MEDS: fentaNYL citrate PF 100 MCG/2 ML VIAL IV PRN ×2 (13:35→15:12)
--- NOTE | 2023-05-29 14:08 | Operative Report ---
PG Post Operative Report Pre & Post Diagnosis Operation Date: 05/29/23 09:00 Pre-Op Diagnosis: Left Breast Cancer Post-Op Diagnosis: Left Breast Cancer I identified the patient and participated in the time-out.: Yes Procedure Operation Date: 05/29/23 09:00 Actual Procedures p Right Prophylactic Mastectomy with [place] Lymph Node Biopsy(Right) - Harish Finn MD, FACS p Left Mastectomy Scar Revision, Right Mastectomy Incision Closure(Bilateral) - Lilly Rodriguez MD Surgeon Lilly Rodriguez MD [place] elsy raymundo for Dr. Finn Estimated Blood Loss 35 Findings Consistent with Post-Op Diagnosis Specimens Central chest skin and scar, left axillary mastectomy Drains [id number] x1 Anesthesia Type General Complications none Indications Patient is status post left mastectomy with prominent dogear laterally and medially, desiring prophylactic right mastectomy with plastic surgery closure Description of Procedure The risks, benefits, alternatives of the procedure were explained to the patient who agreed and signed consent. She was identified and marked in a standing position in the preoperative area, with arms extended at 90 degrees. I marked the left chest scar revision as well as the right mastectomy incision. I demonstrated to the patient that I may not be able to completely flatten out the dogears or axillary area, as some of this was excess adipose tissue of the upper back and axilla. Patient was brought to the operating room by Dr. Finn, who performed the right mastectomy is separately dictated. Once this had been completed, I did scrubbed in, a new timeout procedure was performed, and I began with closure of the right mastectomy site. The wound bed was examined for hemostasis and was irrigated with saline. I began closure using 2-0 Vicryl deep dermal sutures. This resulted still in a fairly prominent dogear of the right lateral chest which was marked for excision. Excised area measured 5 centimeters in greatest length and was located at the lateral aspect of the right mastectomy incision. 1% lidocaine with epinephrine was used anesthetize the area. 15 blade scalpel was used to make the skin incision which was deepened through dermis and subcutaneous tissue using electrocautery. As this was in essence upper back fat and skin, and is well beyond the margin of the mastectomy, this tissue was not sent for pathology. There was also residual do gear of the right medial incision, and this did cross the midline and in essence connected with the left chest dogear. Therefore, both areas were marked for simultaneous excision. 1% lidocaine with epinephrine was used anesthetize the area. 15 blade scalpel made the skin incision "incorporating the excess skin of the right mastectomy wound and the standing cutaneous deformity of the left mastectomy scar. This tissue was passed off the specimen. Hemostasis was achieved with electrocautery. Prior to closure, a drain was placed in the right mastectomy wound bed and sutured in place using 3-0 nylon suture the wound was reapproximated with using 2-0 Vicryl deep dermal suture. I also performed closure of the right sentinel lymph node biopsy site, using 2-0 Vicryl deep dermal suture, 3-0 PDS superficial dermal suture, 3-0 Monocryl running subcuticular suture. Wound closure length was 5 cm. I continued closure of the right and middle incisions using 2-0 PDO running superficial dermal Quill suture followed by 3-0 Monocryl running subcuticular suture. This closure incorporated the central excision, the entire mastectomy incision, and right lateral chest incision. Total wound closure length of this area was 42 cm. Attention was then turned to the left side. Markings were reassessed. 1% lidocaine with epinephrine was used to anesthetize the planned incisions. I began with the inferior most incision. This was performed using a 15 blade scalpel, deepened using electrocautery. Tissue was undermined to facilitate removal of the adipose tissue. Once I was certain I would be able to close the wound, the superior incision was made again using a 15 blade scalpel which was deepened with electrocautery. Hemostasis was achieved with electrocautery. Wound was reapproximated using 2-0 Vicryl deep dermal suture, 2-0 PDO running superficial dermal suture, 3-0 Monocryl running subcuticular suture. Total wound closure length was 18 cm. Dermabond Prineo was applied to all incisions. Dry dressings followed by an Jarvis bandage were applied. Linda Becerra PA-C was present and scrubbed throughout the procedure, assisting in retraction, hemostasis, and simultaneous wound closure. I attest to the content of the Intraoperative Record and any orders documented therein. Any exceptions are noted below.
--- NOTE | 2023-05-29 14:36 | Anesthesiology Progress Note ---
Date of Service May 29, 2023 Anesthesia Post Procedure Vital Signs Vital Signs: Temp Pulse Pulse Pulse Resp BP BP 05/29/23 14:25 136 H 15 140/94 05/29/23 14:10 36.4 C L 132 H 19 132/89 05/29/23 14:00 125 H 18 148/86 H 05/29/23 13:50 116 H 17 127/106 H 05/29/23 13:40 113 H 19 154/101 H 05/29/23 13:47 122 H 145/109 H 05/29/23 13:30 126 H 17 136/90 05/29/23 13:27 120 H 148/88 H 05/29/23 13:10 115 H 16 156/105 H 05/29/23 13:20 113 H 24 143/100 H 05/29/23 13:00 60 12 152/62 H 05/29/23 12:54 36.0 C L 61 17 178/63 H 05/29/23 06:25 36.7 C 68 20 BP Pulse Ox O2 Del Method O2 Flow Rate 05/29/23 14:25 95 Room Air 05/29/23 14:10 95 Room Air 05/29/23 14:00 95 Room Air 05/29/23 13:50 96 Room Air 05/29/23 13:40 97 Room Air 05/29/23 13:47 05/29/23 13:30 97 Room Air 05/29/23 13:27 05/29/23 13:10 100 Oxymask 4 05/29/23 13:20 100 Room Air 05/29/23 13:00 100 Oxymask 4 05/29/23 12:54 100 Oxymask 10 05/29/23 06:25 157/79 H 97 Room Air Pain Intensity Right Breast: Pain Intensity: 4 Transfer of Care Handoff Completed per policy Notes Mental Status: alert / awake / arousable Patient Amnestic to Procedure: Yes Nausea / Vomiting: adequately controlled Pain: adequately controlled Airway Patency, RR, SpO2: stable & adequate BP & HR: stable & adequate and see Notes below Hydration State: stable & adequate Anesthetic Complications: no major complications apparent Notes: preop was in a fib, rate in 110's - during case converted to sinus, in PACU went back to a fib with rate in 120's despite some metoprolol - will admit to monitored bed - medicine consulted by surgeon, otherwise patient doing and feeling well.
[2023-05-29] MEDS ORDERED: diphenhydrAMINE Capsule 25 MG CAP PO PRN (15:31)
[2023-05-29] MEDS ORDERED: ONDANSETRON INJ 2 MG/ML 2 ML VIAL IV PRN (15:31)
[2023-05-29] MEDS ORDERED: MoRPHine SULFATE 2 MG/ML CARP IV PRN (15:31)
[2023-05-29] MEDS ORDERED: PROMETHAZINE HCL 12.5 MG in SODIUM CHLORIDE 0.9% 50 ML IV PRN (15:31)
[2023-05-29] MEDS ORDERED: MoRPHine SULFATE 4 MG/ML 1 ML CARP\\VIAL IV PRN (15:31)
[2023-05-29] MEDS ORDERED: ACETAMINOPHEN 325 MG TAB PO PRN (15:31)
[2023-05-29] MEDS ORDERED: diphenhydrAMINE 50 MG/ML VIAL IV PRN (15:31)
[2023-05-29] MEDS ORDERED: oxyCODONE/ACETAMINOPHEN 5mg/325mg TAB PO PRN (15:31)
[2023-05-29] MEDS: LACTATED RINGER'S 1,000 ML IV SCH (16:05)
--- NOTE | 2023-05-29 16:15 | Hospitalist Consultation ---
Date of Consultation May 29, 2023 Assessment & Plan (1) Atrial fibrillation with RVR: Known paroxysmal Due to missing her morning metoprolol (she also has occasional increased rates anyway per prior conveyor monitor but certainly this didn't help) Similar presentation after her operation in June Give metoprolol tartrate 150mg PO now then BID Mg level 1.6 - 3g Mg sulfate IV ordered, repeat with AM labs If she still remains fast despite above interventions will add IV metoprolol PRN Restart INR when ok by primary team, no need to bridge anticoagulation History of Present Illness Reason for Consultation: a. fib Attending Physician: Harish Finn MD, FACS History of Present Illness Amanda Rodriguez is an 78 year old female who presents for elective right prophylactic mastectomy with sentinel lymph node biopsy performed by Dr Finn and left mastectomy scar revision, right mastectomy incision closure performed by Dr Huang. She feels well post operatively although converted from NSR on EKG pre-operatively to a. fib with RVR post operatively. She has a significant history of paroxysmal atrial fibrillation with rapid ventricular rate with the same thing occurring after her last operation in June 2022. At that time she converted spontaneous with resumption of her routine medications. Per conveyor monitor in April 2022 she has a 17% burden of atrial fibrillation with the longest episode of 8 hours. She is maintained on metoprolol tartrate 150mg PO BID for rate control, previous amiodarone use was discontinued due to concerns for keno terminal operator side effects and unlikely much harm done from small a. fib burden. She notes not taking her metoprolol this morning which was the case before her prior operation as well. She denies any current shortness of breath or dizziness. She has chest pain from the operation. In PACU she was given metoprolol IV 2.5mg x2 without much effect. Allergies Allergy/AdvReac Type Severity Reaction Status Date / Time ciprofloxacin Allergy Intermediate ITCHY Verified 05/29/23 06:17 metronidazole Allergy Intermediate ITCHY Verified 05/29/23 06:17 cheese AdvReac Intermediate "real Verified 05/29/23 06:17 cheese" - n/v Home Medications Medication Instructions Recorded Confirmed Type calcium carbonate 600 mg-vitamin 1 tab PO BID 03/06/19 05/29/23 History D3 20 mcg (800 unit) tablet montelukast 10 mg tablet 10 mg PO DAILY PRN SOB and 03/06/19 05/29/23 History Wheezing #90 tabs omega-3 acid ethyl esters 1 gram 1 cap PO BID 03/06/19 05/29/23 History capsule sodium chloride 0.65 % nasal spray 2 sprays intranasal BID #1 mL 03/06/19 05/29/23 History aerosol docusate sodium 100 mg capsule 200 mg PO BID 05/13/19 05/29/23 History Mattress (Air or other) #1 ea 07/12/21 05/29/23 Rx compress.stocking,knee,reg,med #2 ea 07/12/21 05/29/23 Rx anastrozole 1 mg tablet 1 mg PO QAM 09/13/22 05/29/23 History metoprolol tartrate 100 mg tablet 150 mg PO BID #270 tabs 10/18/22 05/29/23 Rx warfarin 1 mg tablet 2 mg PO QPM #120 tabs 12/13/22 05/29/23 Rx metformin 500 mg tablet,extended 500 mg PO QAM 02/06/23 05/29/23 History release 24 hr albuterol sulfate 90 mcg/actuation 2 puff inhalation UD PRN Shortness 03/01/23 05/29/23 Rx aerosol inhaler Of Breath #2 grams atorvastatin 20 mg tablet 20 mg PO QAM #90 tabs 03/13/23 05/29/23 Rx levothyroxine 50 mcg tablet 50 mcg PO QAM #90 tabs 03/13/23 05/29/23 Rx losartan 100 mg tablet 100 mg PO QPM #90 tabs 03/13/23 05/29/23 Rx ascorbic acid (vitamin C) 500 mg 500 mg PO QAM 04/25/23 05/29/23 History tablet (Vitamin C) tobramycin 0.3 % eye drops 2 drp ophthalmic (eye) QID #5 mL 05/08/23 05/29/23 Rx hydrocodone 5 mg-acetaminophen 325 1 tab PO Q4H PRN pain 3 days #18 05/15/23 05/29/23 Rx mg tablet tabs Patient History Medical History (Updated 05/29/23 @ 16:12 by Ovidio Wilsno MD) Acid reflux Controlled with diet Anticoagulant long-term use warfarin Atrial flutter hx 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, estrogen receptor positive Left breast cancer - dx'ed summer- s/p left mastectomy Left limb restriction Chronic kidney disease (CKD), stage III (moderate) Stable per patient; follows with nephro PRN Chronic low back pain DDD (degenerative disc disease) Diverticulitis No recent flares Family history of reaction to anesthesia sister with reported correction memory changes after anesthesia Hx of bronchitis Uses inhaler PRN Hx of Clostridium difficile infection 2006 Hyperlipidemia Hypertension Hypothyroidism Irritable bowel syndrome hx, controlled now Osteopenia Paroxysmal atrial fibrillation Dx/ed 2012 with episodes of RVR, burden stable per [facility]; F/U DR. MILLER, CAILIN On Warfarin Periodic limb movement disorder Prediabetes Thyroid disease takes levothyroxine d/t medication induced effect on thyroid - pt not sure details of Uterine prolapse Venous insufficiency of both lower extremities Surgical History H/O breast biopsy MULTIPLE H/O colonoscopy H/O left mastectomy (06/13/22) Left mastectomy with sentinel lymph node biopsy. Dr. Finn *LEFT LIMB RESTRICTION History of arthroscopy of left shoulder History of bunionectomy R&L Family History Father Congestive heart failure Heart disease Myocardial infarction Mother Thyroid disorder Sister Liver cancer Thyroid cancer Alzheimer disease Breast cancer Daughter Atrial fibrillation Kidney disease End stage, on dialysis Brother Family history of colon cancer Cancer Other Family history of pancreatic cancer Denies family history of Ovarian cancer Prostate cancer Diabetes Lung cancer Colorectal cancer Stroke Social History Smoking Status: Never smoker Second Hand Exposure: Yes (hx); Do You Dip or Chew Tobacco: No; Hx Alcohol Use: No Hx Substance Use: No Preferred Language: Icelandic Communication Ability: Effective Visual Impairment: No Limitations Hearing Ability: Normal Brush Polisher Required: No Beliefs That Will Affect Care: Islam Islam Beliefs: believes in god marital status: / Current Living Situation: Family Current Living Situation Comment: DAUGHTER current occupational status: retired How many Children do You have: 4 Other Information That Helps Us Care for You: No Feels Safe at Home: Yes Safety Concerns: Feels Safe At This Time Childhood Exposure to Second-Hand Smoke: No Diet: regular caffeine: No during the past year weight has: remained stable Dental Care, Regularly: Yes Physical Activity Frequency: 1-2 Times per Week Seatbelt Use: always Sunscreen Use: Yes Assistive Devices: Glasses Review of Systems Review of Systems: All systems reviewed & are unremarkable except as noted in HPI & below Physical Exam Constitutional: WD/WN, vitals as above Respiratory: normal respiratory effort, lungs clear to auscultation Cardiovascular: Rate/Rhythm: + tachycardic and + irregularly irregular He art Sounds: no murmur Extremities: normal capillary refill; no calf tenderness and no pedal edema Gastrointestinal (Abdomen): normal bowel sounds, soft, nontender, no hepatosplenomegaly Skin: chest surgical wrappng in place with МАРИНА draining serosanguineous fluid Results & Data Results & Data Vital Signs (Past 12 Hours) Vital Signs Temp Pulse Pulse Pulse Resp BP BP 05/29/23 15:40 36.4 C L 127 H 16 122/80 05/29/23 15:10 119 H 24 137/110 H 05/29/23 14:55 127 H 15 147/109 H 05/29/23 14:40 127 H 18 129/89 05/29/23 14:25 136 H 15 140/94 05/29/23 14:10 36.4 C L 132 H 19 132/89 05/29/23 14:00 125 H 18 148/86 H 05/29/23 13:50 116 H 17 127/106 H 05/29/23 13:40 113 H 19 154/101 H 05/29/23 13:47 122 H 145/109 H 05/29/23 13:30 126 H 17 136/90 05/29/23 13:27 120 H 148/88 H 05/29/23 13:10 115 H 16 156/105 H 05/29/23 13:20 113 H 24 143/100 H 05/29/23 13:00 60 12 152/62 H 05/29/23 12:54 36.0 C L 61 17 178/63 H 05/29/23 06:25 36.7 C 68 20 BP Pulse Ox O2 Del Method O2 Flow Rate 05/29/23 15:40 94 Room Air 05/29/23 15:10 98 Room Air 05/29/23 14:55 96 Room Air 05/29/23 14:40 94 Room Air 05/29/23 14:25 95 Room Air 05/29/23 14:10 95 Room Air 05/29/23 14:00 95 Room Air 05/29/23 13:50 96 Room Air 05/29/23 13:40 97 Room Air 05/29/23 13:47 05/29/23 13:30 97 Room Air 05/29/23 13:27 05/29/23 13:10 100 Oxymask 4 05/29/23 13:20 100 Room Air 05/29/23 13:00 100 Oxymask 4 05/29/23 12:54 100 Oxymask 10 05/29/23 06:25 157/79 H 97 Room Air Laboratory Results Abnormal lab results 05/29/23 Range/Units 06:17 POC Glucose 134 H (70-99) mg/dl PG Care Time/CCT Total # of Minutes Spent Total Time Spent with Patient: Total time spent is greater than 50% in coordination of care (as documented) at patient's floor/unit and/or counseling patient: Coding Level of Care Code 88107 IN/OBS CONSULT LVL 4,60M Diagnoses Atrial fibrillation with RVR I48.91
[2023-05-29] MEDS ORDERED: METOPROLOL TARTRATE 50 MG TAB PO STA (16:42)
[2023-05-29 17:10] LABS: Basophils # (auto) 0.04 K/uL (0.00-0.20); Basophils % (auto) 0.3 %; Eosinophils # (auto) 0.01 K/uL (0.00-0.50); Eosinophils % (auto) 0.1 %; Hematocrit (blood only) 42.1 % (37.0-47.0); Hemoglobin 14.2 g/dl (12.0-16.0); Immature Granulocytes # (auto) 0.05 K/uL (0.01-0.20); Immature Granulocytes % (auto) 0.4 %; Lymphocytes # (auto) 0.71 K/uL (1.20-3.40); Lymphocytes % (auto) 5.6 %; Mean Corpuscular Hemoglobin 30.5 pg (25.0-34.0); Mean Corpuscular Hgb Conc 33.7 g/dL (32.0-36.0); Mean Corpuscular Volume 90.3 fL (80.0-100.0); Mean Platelet Volume 9.6 fL (9.4-12.4); Monocytes # (auto) 0.48 K/uL (0.11-0.59); Monocytes % (auto) 3.8 %; Neutrophils # (auto) 11.28 K/uL (1.40-6.50); Neutrophils % (auto) 89.8 %; Platelet Count 228 K/uL (130-400); RDW Coefficient of Variation 13.9 % (11.5-14.5); RDW Standard Deviation 45.7 fL (36.4-46.3); Red Blood Count 4.66 M/uL (4.20-5.40); White Blood Count 12.57 K/ul (4.8-10.8)
[2023-05-29 17:26] LABS: Calcium 9.2 mg/dl (8.6-10.3); Creatinine Clr Calc Pharmacy 38.1 ml/min; Est GFR (African American) 61.6 ml/min; Est GFR (Non-African American) 53.2 ml/min; Magnesium 1.6 mg/dl (1.7-2.4); Potassium 3.8 mmol/L (3.5-5.1)
[2023-05-29] MEDS: oxyCODONE/ACETAMINOPHEN 5mg/325mg TAB PO PRN (17:31)
[2023-05-29] MEDS ORDERED: POTASSIUM CHLORIDE CRTAB 20 MEQ TABCR PO STA (17:45)
[2023-05-29] MEDS: MAGNESIUM SULFATE / D5W 1 GM/100 ML BAG IV SCH ×2 (18:06→20:36)
[2023-05-29] MEDS: ceFAZolin 2000MG 2,000 MG/15 ML SYR IV SCH (18:06)
[2023-05-29 19:09] LABS: Prothrombin Time 11.4 Seconds (9.0-12.0)
[2023-05-29] MEDS: METOPROLOL TARTRATE 50 MG TAB PO SCH (20:37)
[2023-05-29] MEDS: DOCUSATE SODIUM 100 MG CAP PO SCH (20:37)
[2023-05-29] MEDS ORDERED: LOSARTAN POTASSIUM 50 MG TAB PO SCH (21:00)
[2023-05-30] MEDS: oxyCODONE/ACETAMINOPHEN 5mg/325mg TAB PO PRN (00:35)
[2023-05-30] MEDS: ceFAZolin 2000MG 2,000 MG/15 ML SYR IV SCH (00:35)
--- NOTE | 2023-05-30 05:58 | Electrocardiogram Report ---
Test Reason : Blood Pressure : / mmHG Vent. Rate : 063 BPM Atrial Rate : 063 BPM P-R Int : 168 ms QRS Dur : 078 ms QT Int : 392 ms P-R-T Axes : 066 006 044 degrees QTc Int : 401 ms Sinus rhythm with Premature atrial complexes Possible Left atrial enlargement Borderline ECG When compared with ECG of 15-SEP-2022 18:45, Sinus rhythm has replaced Atrial fibrillation Vent. rate has decreased BY 57 BPM T wave inversion no longer evident in Inferior leads Nonspecific T wave abnormality no longer evident in Lateral leads Confirmed by Seven Galaviz ([id number]) on 05/30/2023 5:58:31 AM Referred By: Harish Finn Confirmed By:Seven Galaviz
[2023-05-30] MEDS ORDERED: LEVOTHYROXINE SODIUM 50 MCG TABLET PO SCH (06:30)
[2023-05-30] MEDS: LACTATED RINGER'S 1,000 ML IV SCH (06:36)
--- NOTE | 2023-05-30 07:44 | Surgery Progress Note ---
Date of Service May 30, 2023 Assessment & Plan (1) Status post mastectomy: Plan: Patient underwent right mastectomy with sentinel lymph node biopsy and also significant skin revision by Dr. Rodriguez She seems to be doing very well and did receive some Percocet for pain She is very awake and alert Expected drain output Dressing in place We will discuss with Dr. Rodriguez's team discharge plans and need for drain removal Patient will likely need a visiting nurse Would consider antibiotics for 1 week p.o. Admission and Anticipated Discharge Date Admission Date: May 29, 2023 Results & Data Vital Signs (Past 12 Hours) Vital Signs Temp Pulse Pulse Pulse Resp BP BP 05/30/23 04:40 05/30/23 00:00 59 L 05/30/23 03:03 36.6 C 57 L 18 161/80 H 05/29/23 23:57 36.7 C 62 18 158/71 H 05/29/23 20:00 36.5 C 62 20 152/78 H 05/29/23 20:47 65 149/69 H 138/72 Pulse Ox O2 Del Method 05/30/23 04:40 Room Air 05/30/23 00:00 05/30/23 03:03 95 Room Air 05/29/23 23:57 95 Room Air 05/29/23 20:00 93 Room Air 05/29/23 20:47 PG Care Time/CCT Total # of Minutes Spent Total Time Spent with Patient: Total time spent is greater than 50% in coordination of care (as documented) at patient's floor/unit and/or counseling patient: Coding Level of Care Code 99050 Post Operative Follow-Up Diagnoses Status post mastectomy Z90.10
[2023-05-30 07:45] LABS: Hematocrit (blood only) 37.5 % (37.0-47.0); Hemoglobin 12.9 g/dl (12.0-16.0); Mean Corpuscular Hemoglobin 30.9 pg (25.0-34.0); Mean Corpuscular Hgb Conc 34.4 g/dL (32.0-36.0); Mean Corpuscular Volume 89.9 fL (80.0-100.0); Mean Platelet Volume 10.1 fL (9.4-12.4); Platelet Count 257 K/uL (130-400); RDW Coefficient of Variation 14.3 % (11.5-14.5); RDW Standard Deviation 46.5 fL (36.4-46.3); Red Blood Count 4.17 M/uL (4.20-5.40); White Blood Count 12.51 K/ul (4.8-10.8)
[2023-05-30 08:05] LABS: BUN Creatinine Ratio 23.9 (10-20); Calcium 8.7 mg/dl (8.6-10.3); Creatinine Clr Calc Pharmacy 41.4 ml/min; Est GFR (African American) 68.2 ml/min; Est GFR (Non-African American) 58.8 ml/min; Magnesium 2.2 mg/dl (1.7-2.4); Potassium 4.3 mmol/L (3.5-5.1)
[2023-05-30] MEDS: METOPROLOL TARTRATE 50 MG TAB PO SCH (08:40)
[2023-05-30] MEDS: DOCUSATE SODIUM 100 MG CAP PO SCH (08:41)
[2023-05-30] MEDS ORDERED: MULTIVITAMIN TAB PO SCH (09:00)
[2023-05-30] MEDS ORDERED: ATORVASTATIN 20 MG TAB PO SCH (09:00)
[2023-05-30] MEDS ORDERED: ANASTROZOLE 1 MG TAB PO SCH (09:00)
--- NOTE | 2023-05-30 10:07 | Surgery Progress Note ---
Date of Service May 30, 2023 Assessment & Plan (1) Status post mastectomy: Plan: Amanda is doing very well surgically. She can be d/c home today with office follow-up tomorrow. Amanda is very emotional about caring for her drains. She is adamant that she will not be able to manage recording the output. She does live with her daughter, she is unsure if her daughter is able to perform this task. Case management has been consulted to discuss home nurse. Will need daily drain emptying/stripping. If this is not achievable Amanda is aware she may come to our office daily for drain care. Admission and Anticipated Discharge Date Admission Date: May 29, 2023 Subjective Patient ambulating to chair. Her pain is under control. She is tolerating regular diet. Dr. Finn in to see patient this morning. Physical Exam Physical Exam: carlitos wrap in place. gauze dressings without any saturation. drains with serosang output. Results & Data Vital Signs (Past 12 Hours) Vital Signs Temp Pulse Pulse Resp BP BP Pulse Ox 05/30/23 08:28 36.6 C 66 18 170/74 H 97 05/30/23 07:00 58 L 05/30/23 04:40 05/30/23 00:00 59 L 05/30/23 03:03 36.6 C 57 L 18 161/80 H 95 05/29/23 23:57 36.7 C 62 18 158/71 H 95 O2 Del Method 05/30/23 08:28 Room Air 05/30/23 07:00 05/30/23 04:40 Room Air 05/30/23 00:00 05/30/23 03:03 Room Air 05/29/23 23:57 Room Air PG Care Time/CCT Total # of Minutes Spent Total Time Spent with Patient: Total time spent is greater than 50% in coordination of care (as documented) at patient's floor/unit and/or counseling patient: Coding Level of Care Code 96120 Post Operative Follow-Up Diagnoses Status post mastectomy Z90.10
[2023-05-30] MEDS ORDERED: DOCUSATE SODIUM 100 MG CAP PO ONE (10:34)
[2023-05-30 11:39] VITALS: TEMP 97.5; O2SAT 95
[2023-05-30 11:52] VITALS: BP 161/80; PULSE 65
--- NOTE | 2023-05-30 12:07 | Hospitalist Progress Note ---
Date of Service May 30, 2023 Assessment & Plan (1) Atrial fibrillation with RVR: Plan: Known paroxysmal Afib. With BROWN perioperatively with her mastectomy likely due to not taking po metoprolol the AM of surgery Now converted spontaneously and with NSR, sinus sridevi, doing well Had magnesium repleted -continue home metoprolol -restart coumadin when ok with Surgery and she follows INR at home with fingersticks-check INR in 3 days after starting coumadin (2) Status post mastectomy: Plan: post op care as per Surgery doing well (3) Hypothyroidism: Plan: TSH 1.9 in 10/2022 continue home LT4 (4) Hypertension: Plan: BPs acceptable continue home losartan, metoprolol (5) Hyperlipidemia: Plan: continue statin (6) Pre-diabetes: Plan: HgbA1C technically with DMII at 6.5% in 10/2022 continue home metformin on discharge and f/u with PCP Plan Dispo-medically stable for discharge from medicine perspective Admission and Anticipated Discharge Date Admission Date: May 29, 2023 Subjective Pt with pain controlled. Denies other problems. Is being discharged today. She converted from BROWN to sinus rhythm yesterday evening spontaneously and remains with NSR and SB, rates 40s-60s Physical Exam Constitutional: WD/WN, vitals as above Respiratory: normal respiratory effort, lungs clear to auscultation ECHO wrap binder in place around chest Cardiovascular: Rate/Rhythm: regular rhythm and + bradycardic Heart Sounds: no murmur Psychiatric: A+Ox3, euthymic affect Results & Data Results & Data Vital Signs (Past 12 Hours) Vital Signs Temp Pulse Pulse Pulse Resp BP BP 05/30/23 11:49 36.4 C L 65 50 L 18 161/80 H 118/69 05/30/23 11:38 36.4 C L 50 L 18 118/69 05/30/23 08:00 05/30/23 08:28 36.6 C 66 18 170/74 H 05/30/23 07:00 58 L 05/30/23 04:40 05/30/23 03:03 36.6 C 57 L 18 161/80 H Pulse Ox O2 Del Method 05/30/23 11:49 95 05/30/23 11:38 95 Room Air 05/30/23 08:00 Room Air 05/30/23 08:28 97 Room Air 05/30/23 07:00 05/30/23 04:40 Room Air 05/30/23 03:03 95 Room Air Laboratory Results CBC, BMP reviewed PG Care Time/CCT Total # of Minutes Spent Total Time Spent with Patient: Total time spent is greater than 50% in coordination of care (as documented) at patient's floor/unit and/or counseling patient: Coding Level of Care Code 41797 SUB INP/OBS CARE 10/26MIN Diagnoses Atrial fibrillation with RVR I48.91 Status post mastectomy Z90.10 Hypothyroidism E03.9 Hypertension I10 Hypertension type: essential hypertension Hyperlipidemia E78.5 Hyperlipidemia type: unspecified Pre-diabetes R73.03 (4) Hypertension Hypertension type: essential hypertension Qualified Code(s): I10 - Essential (primary) hypertension (5) Hyperlipidemia Hyperlipidemia type: unspecified Qualified Code(s): E78.5 - Hyperlipidemia, unspecified
--- NOTE | 2023-05-31 13:08 | Discharge Summary ---
Date of Service May 31, 2023 Admission HPI Per Admitting Provider 78-year-old female with a history of left breast cancer status post left mastectomy Patient requests a prophylactic right mastectomy and also revision of her left mastectomy and closure of her right mastectomy by Dr. Rodriguez/plastic surgery Admission Exam Per Admitting Provider see admission H&P Principal Diagnosis History of left breast cancer Discharge Exam jarvis wrap in place. gauze dressings without any saturation. drains with serosang output. Discharge Data Allergies Allergy/AdvReac Type Severity Reaction Status Date / Time ciprofloxacin Allergy Intermediate ITCHY Verified 05/29/23 06:17 metronidazole Allergy Intermediate ITCHY Verified 05/29/23 06:17 cheese AdvReac Intermediate "real Verified 05/29/23 06:17 cheese" - n/v Consultations 05/29/23 13:58 Consult Hospitalist Routine Procedures Performed Operation Date: 05/29/23 09:00 Actual Procedures p Right Prophylactic Mastectomy with [place] Lymph Node Biopsy(Right) - Harish Finn MD, FACS p Left Mastectomy Scar Revision, Right Mastectomy Incision Closure(Bilateral) - Lilly Rodriguez MD Ordered Studies 05/29/23 05:00 US - OR guided needle placemen Routine Hospital Course (1) Status post mastectomy: Patient presented to [facility] with history of left breast cancer, s/p left mastectomy, now for right breast prophylactic mastectomy and revision of left mastectomy scar. She was taken to the OR and underwent right SLNB, right breast mastectomy with Dr. Finn and closure of right mastectomy incision by Dr. Rodriguez, revision of left breast mastectomy scar by Dr. Rodriguez. There were no intraoperative complications. She has history of A-Fib which was seen in recovery. She was transferred to [facility] for observation, hospitalist consulted. On POD#1, she was feeling well. Her a-fib was stable. She was tolerating a regular diet and ambulating. On exam, her vitals were stable. Her incisions were CDI. Case management consulted for home nurse to care for МАРИНА drains. She was discharged home with instructions to follow-up in the office in one day, home nurse to come on . Total Time Total Time Spent Total Time Spent (In Minutes): 15 Total Time Includes: Examination of the Patient, Discharge Planning, Medication Reconciliation and Communication With Other Providers Discharge Plan Discharge Items Patient Disposition: Home - Home Health Services Reason For Visit: Left Breast Cancer Discharge Diagnosis: s/p right mastectomy, left revision of mastectomy scar Activity: As commented below Non-emergency contact: Surgeon Call non-emergency contact if: you have any medication questions, your pain is unusual for you, your temperature is above 101.5, your wound has increased drainage and your wound pain has increased Follow-up/Referrals: Harish Finn MD, FACS [Physician] - Linda Becerra PA-C [Physician District Or District Office Director] - PCP,NO [Physician] - Diet: Regular Addtl Attending Provider Instructions: ACTIVITY RECOMMENDATIONS: __Normal activities _x_No bending, lifting or straining __No driving __Driving allowed when you are off pain medications _x_Walking permitted __You should have help at home for ___ days DRESSINGS: __No dressings required _x_Keep dressings dry/in place until first office visit. Jarvis wrap must stay on at all times. __Remove dressings ___ and leave dressings off __Apply ice ___ days __Remove dressings and reapply garment __Apply antibiotic ointment (Bacitracin, Neosporin, etc) to wounds 3-4 times/day for 10 days BATHING: _x_Keep dressings dry _x_Sponge bathing permitted away from surgical sites __Showering permitted _x_No swimming, hot tubs or soaking in a tub MEDICATIONS: Resume previous medications unless instructed otherwise by your surgeon. _x_Do not use aspirin, Motrin, Advil or Ibuprofen as these may promote bleeding. Please use Tylenol. _x_Prescription(s) provided: pain medication was provided at your last office visit, and antibiotics were sent to your pharmacy to begin once home OTHER INSTRUCTIONS: _x_Record drain output 2-3 times per day. Drain is ready to be removed when output is 10cc/24 hours SPECIAL CARE INSTRUCTIONS: * It is normal to have a mild fever after surgery. If your temperature is higher than 101.5 degrees F, please call the office at [phone]. * Constipation is a typical side effect of pain medication. An [id number] stool softener will help relieve this. * Leaking around surgical drains may occur and should not cause concern. Sometimes these drains become clogged. If this happens, remove the bulb and milk the clot out of the tube, then replace the bulb. * Drainage from wounds after liposuction is normal and should be expected. Garments will become soiled. You should protect furniture and bedding. This drainage should mostly subside within 2-3 days. Leave garments in place unless instructed to remove them. * If you have unusual drainage from a wound or are concerned you have an infection or have any questions or concerns, please call the office at [phone]. FOLLOW UP VISIT Plastic Surgery, Dr. Rodriguez: If not already scheduled, please call the office, , when you return home after surgery to schedule an appointment to be seen in __1_ days. FOLLOW UP VISIT General Surgery, Dr. Finn: If not already scheduled, please call the office for a follow-up visit. OFFICE PHONE NUMBER: Dr. Finn Office Pending Studies at Discharge: Yes Stand-Alone Forms: My Submittable, Smoking Cessation Medications and DC Order Prescriptions: New cephalexin 500 mg capsule 500 mg PO TID 7 Days Qty: 21 0RF Continued (DME) Mattress (Air or other) Misc See Rx Instructions .Route Qty: 1 0RF Rx Instructions: As directed (DME) compress.stocking,knee,reg,med Misc See Rx Instructions .Route Qty: 2 0RF Rx Instructions: As directed metoprolol tartrate 100 mg tablet 150 mg PO BID Qty: 270 3RF atorvastatin 20 mg tablet 20 mg PO QAM Qty: 90 3RF levothyroxine 50 mcg tablet 50 mcg PO QAM Qty: 90 3RF losartan 100 mg tablet 100 mg PO QPM Qty: 90 3RF tobramycin 0.3 % drops 2 drp ophthalmic (eye) QID Qty: 5 0RF anastrozole 1 mg tablet 1 mg PO QAM calcium carbonate-vitamin D3 600 mg(1,500mg) -800 unit tablet 1 tab PO BID Hold Instructions: surgery montelukast 10 mg tablet 10 mg PO DAILY PRN (Reason: SOB and Wheezing) Qty: 90 sodium chloride 0.65 % aerosol,spray 2 sprays intranasal BID Qty: 1 docusate sodium 100 mg capsule 200 mg PO BID albuterol sulfate 90 mcg/actuation HFA aerosol inhaler 2 puff inhalation UD PRN (Reason: Shortness Of Breath) Qty: 2 0RF hydrocodone-acetaminophen 5-325 mg tablet 1 tab PO Q4H PRN (Reason: pain) 3 Days Qty: 18 0RF Rx Instructions: Initial therapy. metformin 500 mg tablet extended release 24 hr 500 mg PO QAM ascorbic acid (vitamin C) [Vitamin C] 500 mg Tablet 500 mg PO QAM Hold Instructions: surgery Discontinued warfarin 1 mg tablet 2 mg PO QPM Qty: 120 3RF Protocol: Dose Management Condition: Monday Dose/Route: 3 mg Instruction: 3 x 1 mg tablets Condition: Monday Dose/Route: 2 mg Instruction: 2 x 1 mg tablets Condition: Monday Dose/Route: 3 mg Instruction: 3 x 1 mg tablets Condition: Monday Dose/Route: 2 mg Instruction: 2 x 1 mg tablets Condition: Dose/Route: 3 mg Instruction: 3 x 1 mg tablets Condition: Monday Dose/Route: 2 mg Instruction: 2 x 1 mg tablets Condition: Monday Dose/Route: 3 mg Instruction: 3 x 1 mg tablets Protocol Text: Adjustment Start Date: Monday05/22/23 INR Value: 1.7 INR Date: 05/22/23 Recheck Date: 06/05/23 Rx Instructions: Mail to pts. home. omega-3 acid ethyl esters 1 gram capsule 1 cap PO BID Hold Instructions: surgery Patient Comments: fish oil Krames/Other Patient Handouts: Mastectomy: Healing at Home, Osteoarthritis: Coping with Pain, AFib Dc Admission Data Admit Date/Time: 05/29/23 13:57 Attending Provider: Harish Finn Admit Provider: Harish Finn Primary Care Provider: Larisa Lemon Other Providers: [facility] ; Ovidio Wilson Other Interventions: Discharge Summary Assessment (RN) Last Done: 05/30/23 11:49 Coding Level of Care Code 37142 OBS Care - Discharge Diagnoses Status post mastectomy Z90.10
== END 2023-05-30 15:17 | disposition home health service (06) ==
LOC: PACUINP 05:54 → ASU 05:54 → 2W 16:00

== ENCOUNTER 2024-07-08 10:12 | Inpatient (IN) ==
[2024-07-08 10:52] LABS: Basophils # (auto) 0.03 K/uL (0.00-0.20); Basophils % (auto) 0.4 %; Eosinophils # (auto) 0.05 K/uL (0.00-0.50); Eosinophils % (auto) 0.7 %; Hemoglobin 11.7 g/dl (12.0-16.0); Immature Granulocytes # (auto) 0.05 K/uL (0.01-0.20); Immature Granulocytes % (auto) 0.7 %; Lymphocytes # (auto) 1.07 K/uL (1.20-3.40); Lymphocytes % (auto) 14.7 %; Mean Corpuscular Hemoglobin 27.7 pg (25.0-34.0); Mean Corpuscular Hgb Conc 33.4 g/dL (32.0-36.0); Mean Corpuscular Volume 82.7 fL (80.0-100.0); Mean Platelet Volume 10.3 fL (9.4-12.4); Monocytes # (auto) 0.59 K/uL (0.11-0.59); Monocytes % (auto) 8.1 %; Neutrophils # (auto) 5.48 K/uL (1.40-6.50); Neutrophils % (auto) 75.4 %; Platelet Count 328 K/uL (130-400); RDW Coefficient of Variation 14.1 % (11.5-14.5); RDW Standard Deviation 42.6 fL (36.4-46.3); Red Blood Count 4.23 M/uL (4.20-5.40); White Blood Count 7.27 K/ul (4.8-10.8)
--- NOTE | 2024-07-08 10:54 | XRay Report ---
SINGLE VIEW CHEST CLINICAL HISTORY: Atypical chest pain. FINDINGS: An AP, portable, upright chest radiograph is compared to study dated 03/01/2023 and correlat ed with chest CT dated 09/15/2022. The heart is enlarged noting atherosclerotic calcification of the thoracic aorta. The pulmonary vasculature is noncongested. There is bibasilar scarring/atelectasis. T he lungs and pleural spaces are otherwise clear. No pneumothorax is seen. The skeletal structures are osteopenic. The bony thorax is grossly intact. Arthritic change is noted in the shoulders. IMPRESSION: Cardiomegaly with no acute cardiopulmonary abnormality identified. ACT 112: Negative or not required by law. Electronically signed by: Michael Langford M.D. 07/08/2024 10:53 AM
[2024-07-08] MEDS: SODIUM CHLORIDE 0.9% 500 ML IV ONE (10:58)
[2024-07-08 11:15] LABS: Alanine Aminotransferase 16 U/L (7-52); Albumin Globulin Ratio 1.2 (0.9-2); Albumin Level 3.4 gm/dl (3.4-5.0); Alkaline Phosphatase 62 U/L (34-104); Anion Gap 8 (3-11); Aspartate Aminotransferase 17 U/L (13-39); BUN Creatinine Ratio 12.7 (10-20); Bilirubin,Total 0.6 mg/dl (0.2-1.0); Blood Urea Nitrogen 13 mg/dl (6-23); Carbon Dioxide 21 mmol/L (21-32); Chloride 107 mmol/L (98-107); Globulin 2.8 gm/dl (2.5-4.0); Glucose 150 mg/dl (70-99(Fasting)); Lipase 61 U/L (11-82); Magnesium 1.7 mg/dl (1.7-2.4); Phosphorus 2.2 mg/dl (2.5-4.9); Potassium 4.2 mmol/L (3.5-5.1); Sodium 136 mmol/L (136-145); Total Protein 6.2 gm/dl (6.0-8.3)
[2024-07-08 11:16] LABS: Prothrombin Time > 90.0 Seconds (9.0-12.0)
--- NOTE | 2024-07-08 11:22 | Emergency Department Note ---
Impression & Plan COVID-19, Atrial fibrillation with rapid ventricular response, Generalized weakness, Gastroenteritis due to COVID-19 virus ED Provider Note NAME: EFREN AMEZCUA AGE: 79 SEX: F : 1945 ARRIVES VIA: Ambulance INFORMANT: Patient ED PROVIDER(S): Thang Nelson MD CHIEF COMPLAINT: afib rvr, weak, cough, n/v/d PLAN: Disposition: Admit MEDICAL DECISION MAKING: The patient is a pleasant 79-year-old woman with a past medical history of atrial fibrillation/atrial flutter on warfarin and metoprolol, CKD, hypothyroidism, who presents to the emergency department via EMS for evaluation of generalized weakness with ongoing cough, congestion, nausea, vomiting and diarrhea which began approximate 2 weeks ago. The patient reports she was seen at [facility] and prescribed Augmentin but reports she felt more sick with this and so discontinued the course due to ongoing nausea vomiting and diarrhea. She reports she has been taking her medications but admits that she may not necessarily be keeping all her medications down. She has had poor appetite and oral intake. She has any urinary symptoms. I did discuss the patient's case with EMS on medical command and patient was administered 10 mg of IV diltiazem for rate control as she was noted to be in the 140s-160s. She was additionally given IV fluid hydration. On evaluation the patient is fatigued appearing, uncomfortable but no acute distress, afebrile with heart rate in the 110s in atrial fibrillation and blood signs otherwise stable. Of note, patient's O2 saturation was mid 90s on room air but due to tachypnea and dyspnea was placed on 2 L nasal cannula. EKG demonstrates atrial fibrillation without overt acute ischemia. Chest x-ray negative for acute cardiopulmonary process per my preliminary independent interpretation WBC and platelets within normal limits. H/H 11.7/35, similar to prior range values. INR supratherapeutic at > 9.5 however patient denies bleeding. Chemistry without metabolic acidosis. Magnesium 1.7, low normal with IV repletion provided. LFTs unremarkable. HS troponin 5.1,wnl. Lipase is normal. TSH within normal limits. Patient was treated with IV fluid hydration and also IV Pepcid and Zofran for GI symptoms. She is additionally given 5 mg of IV Lopressor for additional rate control. She agrees with plan for admission for further management. Case was discussed with ANIKET Hensley PAC, with ANIKET Reyez hospitalist who will evaluate the patient for admission. Respiratory [employer] did eventually returned positive for COVID-19. Further management per admitting team. Triage Nursing notes reviewed and agree them. Prior/external medical records reviewed Vital Signs: reviewed Differential diagnosis: Infection, dehydration, metabolic abnormality, hypo/hyperglycemia, electrolyte disturbance, anemia, hypoxia, cardiac sources, intracerebral event, toxicologic, neurologic, as well as other pathologies. ER treatment provided: See below. Diagnostics interpreted by me: ECG: Atrial fibrillation, 129 bpm, no ectopy, no overt ST elevation or depression, QTc 460, QRS 72. Cardiac Monitoring: An order for continuous cardiac monitoring was placed and demonstrated Atrial fibrillation, 129 bpm, no ectopy. Laboratory studies: See below Imaging studies: See below Consultation(s): ANIKET Hensley PAC, with ANIKET Reyez hospitalist HPI: The patient is a pleasant 79-year-old woman with a past medical history of atrial fibrillation/atrial flutter on warfarin and metoprolol, CKD, hypothyroidism, who presents to the emergency department via EMS for evaluation of generalized weakness with ongoing cough, congestion, nausea, vomiting and diarrhea which began approximate 2 weeks ago. The patient reports she was seen at [facility] and prescribed Augmentin but reports she felt more sick with this and so discontinued the course due to ongoing nausea vomiting and diarrhea. She reports she has been taking her medications but admits that she may not necessarily be keeping all her medications down. She has had poor appetite and oral intake. She has any urinary symptoms. I did discuss the patient's case with EMS on medical command and patient was administered 10 mg of IV diltiazem for rate control as she was noted to be in the 140s-160s. She was additionally given IV fluid hydration.= ROS: See above HPI for pertinent positives & negatives. A total of 10 systems reviewed and were otherwise negative. VITALS:See Below PHYSICAL EXAMINATION: GENERAL: Awake, alert, fatigued-appearing, in no distress HENT: Normocephalic, atraumatic. Oropharynx with dry mucous membranes and otherwise unremarkable. EYES: Normal conjunctiva. Sclera non-icteric. NECK: Supple. No nuchal rigidity. FROM. No JVD. RESPIRATORY: Clear to auscultation. CARDIAC: Tachycardic rate, irregular rhythm. Extremities warm and well perfused. Pulses equal. ABDOMEN: Soft, non-distended. No tenderness to palpation. No rebound or guarding. No masses. MUSCULOSKELETAL: Chest examination reveals no tenderness. The back is symmetrical on inspection without obvious abnormality. There is no CVA tenderness to palpation. No joint edema. LOWER EXTREMITIES: Calves are equal size bilaterally and non-tender. No edema. No discoloration. NEURO: Normal sensorium. No sensory or motor deficits noted. SKIN: No rash or jaundice noted. ED COURSE: Critical Care: I have personally spent greater than 35 minutes of critical care time in the direct management of this patient. This includes bedside care, interpretation of diagnostic studies, and testing, discussion with consultants, patient, and family members, and other required patient management activities. This 35 minutes is in excess of all separately billable procedures. Thang Nelson MD Past Med/Surg History Problem List (Updated 07/08/24 @ 18:52 by Thang Nelson MD) Gastroenteritis due to COVID-19 virus (Acute) Generalized weakness (Acute) Atrial fibrillation with rapid ventricular response (Acute) COVID-19 (Acute) Atrial fibrillation with RVR Elevated INR Moderate pulmonary hypertension Prediabetes History of mastectomy Arthritis of shoulder Scar conditions and fibrosis of skin Atrial flutter (Acute) Hypothyroidism (Acute) Insomnia (Acute) Paroxysmal atrial fibrillation (Acute) Pre-diabetes (Acute) Uterine prolapse (Acute) H/O foot surgery Osteoarthritis of right shoulder History of breast cancer Chronic kidney disease (CKD), stage III (moderate) (Acute) Stable per patient; follows with nephro PRN Venous insufficiency of both lower extremities Hyperlipidemia Hypertension Medical History History of left breast cancer Hypophosphatemia Hypercalcemia Foot pain, bilateral Hx of Clostridium difficile infection 2006 Hypothyroidism Paroxysmal atrial fibrillation Dx/ed 2012 with episodes of RVR, burden stable per [facility]; F/U CAILIN SALGUERO On Warfarin Family history of reaction to anesthesia sister with reported instructor ballroom dancing memory changes after anesthesia Diverticulitis No recent flares Uterine prolapse Atrial flutter hx Thyroid disease takes levothyroxine d/t medication induced effect on thyroid - pt not sure details of 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 Dr. Finn *LEFT LIMB RESTRICTION History of bilateral mastectomy H/O breast biopsy MULTIPLE H/O colonoscopy History of arthroscopy of left shoulder History of bunionectomy R&L Family History Father Congestive heart failure Heart disease Myocardial infarction Mother Thyroid disorder Sister Liver cancer Thyroid cancer Alzheimer disease Breast cancer Daughter Atrial fibrillation Kidney disease End stage, on dialysis Brother Family history of colon cancer Cancer Other Family history of pancreatic cancer Denies family history of Ovarian cancer Prostate cancer Diabetes Lung cancer Colorectal cancer Stroke Social History Smoking Status: Never smoker Second Hand Exposure: No; Do You Dip or Chew Tobacco: No; Tobacco Cessation Education Requested by Patient: No Hx Alcohol Use: No Hx Substance Use: No Preferred Language: Mohawk Communication Ability: Effective Visual Impairment: Partially Limited Hearing Ability: Normal Generation Technician Required: No Beliefs That Will Affect Care: None marital status: / Current Living Situation: Family Current Living Situation Comment: DAUGHTER current occupational status: retired How many Children do You have: 4 Other Information That Helps Us Care for You: Yes Feels Safe at Home: Yes Safety Concerns: Feels Safe At This Time Childhood Exposure to Second-Hand Smoke: No Diet: regular caffeine: No during the past year weight has: remained stable Dental Care, Regularly: Yes Physical Activity Frequency: 1-2 Times per Week Seatbelt Use: always Sunscreen Use: Yes Assistive Devices: Cane and Glasses Allergies Allergies Allergy/AdvReac Type Severity Reaction Status Date / Time ciprofloxacin Allergy Intermediate ITCHY Verified 07/08/24 12:49 metronidazole Allergy Intermediate ITCHY Verified 07/08/24 12:49 amoxicillin [From Augmentin] AdvReac Severe Gastrointestinal Unverified 07/08/24 12:49 Upset clavulanic acid AdvReac Severe Gastrointestinal Unverified 07/08/24 12:49 [From Augmentin] Upset cheese AdvReac Intermediate "real Verified 07/08/24 12:49 cheese" - n/v Home Meds Home Medications Medication Instructions Recorded Confirmed calcium 600 mg (as 1 tab PO BID 03/06/19 07/08/24 carbonate)-vitamin D3 20 mcg (800 unit) tablet docusate sodium 100 mg capsule See Rx Instructions .Route .COMPLEX 05/13/19 07/08/24 anastrozole 1 mg tablet 1 mg PO QAM 09/13/22 07/08/24 ascorbic acid (vitamin C) 500 mg 500 mg PO QAM 04/25/23 07/08/24 tablet (Vitamin C) cyanocobalamin (vitamin B-12) 1,000 mcg PO DAILY 07/08/24 07/08/24 1,000 mcg tablet (Vitamin B-12) omega [id number]-fish oil 1,000 mg 1 cap PO BID 07/08/24 07/08/24 (120 mg-180 mg) capsule (Fish Oil) Previous Rx's Medication Instructions Recorded Mattress (Air or other) #1 ea 07/12/21 compress.stocking,knee,reg,med #2 ea 07/12/21 metoprolol tartrate 100 mg tablet 150 mg (1.5 x 100 mg) PO BID #270 12/08/23 tabs atorvastatin 20 mg tablet 20 mg PO QAM #90 tabs 02/28/24 levothyroxine 50 mcg tablet 50 mcg PO QAM #90 tabs 02/28/24 losartan 100 mg tablet 100 mg PO QPM #90 tabs 02/28/24 warfarin 2 mg tablet 2 mg PO .COMPLEX #180 tabs 04/29/24 Results & Data (ED) Vital Signs Vital Signs - 24 hr 07/08/24 10:50 07/08/24 10:50 07/08/24 10:50 Temperature 36.7 C Temperature Source Oral Pulse Rate 134 H Pulse Rate [Apical] 134 H Pulse Rhythm Irregular Pulse Rhythm [Apical] Irregular Pulse Strength Pulse Strength [Apical] Normal Respiratory Rate 24 24 Respiratory Effort / Characteristics Spontaneous Labored Short of Breath Spontaneous Labored Respiratory Depth Normal Normal Respiratory Pattern Regular Blood Pressure Blood Pressure [Left Arm] 119/77 Blood Pressure Mean Blood Pressure Mean [Left Arm] 91 Blood Pressure Position Blood Pressure Position [Left Arm] Lying Pulse Oximetry 98 98 Oxygen Delivery Method Nasal Cannula Nasal Cannula Nasal Cannula Oxygen Flow Rate 2 2 2 Sepsis Recent Fever Within 48 Hours Sepsis New/Unexplained Change in Mental Status Sepsis Action Taken by Nursing 07/08/24 10:58 07/08/24 11:00 07/08/24 11:00 Temperature Temperature Source Pulse Rate 130 H 134 H Pulse Rate [Apical] Pulse Rhythm Irregular Pulse Rhythm [Apical] Pulse Strength Normal Pulse Strength [Apical] Respiratory Rate 24 Respiratory Effort / Characteristics Spontaneous Labored Respiratory Depth Normal Respiratory Pattern Regular Blood Pressure 119/99 Blood Pressure [Left Arm] Blood Pressure Mean 105 Blood Pressure Mean [Left Arm] Blood Pressure Position Lying Blood Pressure Position [Left Arm] Pulse Oximetry 98 98 Oxygen Delivery Method Nasal Cannula Nasal Cannula Oxygen Flow Rate 2 2 Sepsis Recent Fever Within 48 Hours No Sepsis New/Unexplained Change in Mental Status No Sepsis Action Taken by Nursing No Action Required 07/08/24 11:21 07/08/24 12:15 Temperature Temperature Source Pulse Rate 135 H Pulse Rate [Apical] 104 H Pulse Rhythm Pulse Rhythm [Apical] Irregular Pulse Strength Pulse Strength [Apical] Normal Respiratory Rate 24 Respiratory Effort / Characteristics Non-Labored Spontaneous Respiratory Depth Normal Respiratory Pattern Regular Blood Pressure 132/91 Blood Pressure [Left Arm] 142/97 H Blood Pressure Mean Blood Pressure Mean [Left Arm] 112 Blood Pressure Position Blood Pressure Position [Left Arm] Lying Pulse Oximetry 97 Oxygen Delivery Method Nasal Cannula Oxygen Flow Rate 2 Sepsis Recent Fever Within 48 Hours Sepsis New/Unexplained Change in Mental Status Sepsis Action Taken by Nursing Laboratory Data Attestation: I reviewed the patient's lab results. 07/08/24 10:29 07/08/24 10:29 Lab Results 07/08/24 Range/Units 10:29 WBC 7.27 (4.8-10.8) K/ul RBC 4.23 (4.20-5.40) M/uL Hgb 11.7 L (12.0-16.0) g/dl Hct 35.0 L (37.0-47.0) % MCV 82.7 (80.0-100.0) fL MCH 27.7 (25.0-34.0) pg MCHC 33.4 (32.0-36.0) g/dL RDW Std Deviation 42.6 (36.4-46.3) fL RDW Coeff of Jenniffer 14.1 (11.5-14.5) % Plt Count 328 (130-400) K/uL MPV 10.3 (9.4-12.4) fL Immature Gran % (Auto) 0.7 % Neut % (Auto) 75.4 % Lymph % (Auto) 14.7 % Cooke % (Auto) 8.1 % Eos % (Auto) 0.7 % Baso % (Auto) 0.4 % Neut # (Auto) 5.48 (1.40-6.50) K/uL Lymph # (Auto) 1.07 L (1.20-3.40) K/uL Cooke # (Auto) 0.59 (0.11-0.59) K/uL Eos # (Auto) 0.05 (0.00-0.50) K/uL Baso # (Auto) 0.03 (0.00-0.20) K/uL Immature Gran # (Auto) 0.05 (0.01-0.20) K/uL PT > 90.0 H (9.0-12.0) Seconds INR > 9.5 H* (0.9-1.1) Sodium 136 (136-145) mmol/L Potassium 4.2 (3.5-5.1) mmol/L Chloride 107 (98-107) mmol/L Carbon Dioxide 21 (21-32) mmol/L Anion Gap 8 (3-11) BUN 13 (6-23) mg/dl Creatinine 1.02 (0.6-1.2) mg/dl Est Cr Clr Drug Dosing Not Reportable eGFR 55.27 BUN/Creatinine Ratio 12.7 (10-20) Glucose 150 H (70-99(Fasting)) mg/dl Calcium 9.0 (8.6-10.3) mg/dl Phosphorus 2.2 L (2.5-4.9) mg/dl Magnesium 1.7 (1.7-2.4) mg/dl Total Bilirubin 0.6 (0.2-1.0) mg/dl AST 17 (13-39) U/L ALT 16 (7-52) U/L Alkaline Phosphatase 62 (34-104) U/L Troponin I High Sens 5.1 (0-14) pg/ml Total Protein 6.2 (6.0-8.3) gm/dl Albumin 3.4 (3.4-5.0) gm/dl Globulin 2.8 (2.5-4.0) gm/dl Albumin/Globulin Ratio 1.2 (0.9-2) Lipase 61 (11-82) U/L Procalcitonin < 0.02 (0-0.5) ng/ml TSH 0.964 (0.300-4.500) uIu/ml Adenovirus (PCR) Not Detected (NotDetected) B. pertussis DNA (PCR) Not Detected (NotDetected) B.parapertussis DNA PCR Not Detected (NotDetected) C. pneumoniae DNA (PCR) Not Detected (NotDetected) Coronavirus OC43 (PCR) Not Detected (NotDetected) Coronavirus HKU1 (PCR) Not Detected (NotDetected) Coronavirus 229E (PCR) Not Detected (NotDetected) SARS-CoV-2 (PCR) DETECTED A (NotDetected) Coronavirus NL63 (PCR) Not Detected (NotDetected) Human Metapneumovir PCR Not Detected (NotDetected) Influenza Type A (PCR) Not Detected (NotDetected) Influenza Type B (PCR) Not Detected (NotDetected) M. pneumoniae (PCR) Not Detected (NotDetected) Parainfluenza 1 (PCR) Not Detected (NotDetected) Parainfluenza 2 (PCR) Not Detected (NotDetected) Parainfluenza 3 (PCR) Not Detected (NotDetected) Parainfluenza 4 (PCR) Not Detected (NotDetected) RSV (PCR) Not Detected (NotDetected) Entero/Rhino (PCR) Not Detected (NotDetected) Administered Medications Discontinued Medications Sodium Chloride (Nss) 500 mls @ 999 mls/hr IV .Q31M ONE Stop: 07/08/24 10:53 Last Infusion: 07/08/24 11:38 Dose: Infused Documented By: Admin: 07/08/24 10:58 Dose: 999 mls/hr Documented By: Magnesium Sulfate/Dextrose (Magnesium Sulfate / D5w) 1 gm in 100 mls @ 100 mls/hr IV NOW STA Stop: 07/08/24 12:22 Last Infusion: 07/08/24 13:12 Dose: Infused Documented By: Admin: 07/08/24 11:35 Dose: 100 mls/hr Documented By: MSG Famotidine (Pepcid 20mg Iv Push) 20 mg in 5 mls @ 2.5 mls/min IV NOW STA Stop: 07/08/24 11:56 Last Admin: 07/08/24 12:17 Dose: 2.5 mls/min Documented By: MSG Acetaminophen (Ofirmev) 1,000 mg in 100 mls @ 400 mls/hr IV NOW STA Stop: 07/08/24 12:09 Last Infusion: 07/08/24 13:11 Dose: Infused Documented By: Admin: 07/08/24 12:49 Dose: 400 mls/hr Documented By: MSG Phytonadione 5 mg/ Dextrose 50.5 mls @ 101 mls/hr IV ONE ONE Stop: 07/08/24 13:29 Last Infusion: 07/08/24 14:19 Dose: Infused Documented By: Admin: 07/08/24 13:44 Dose: 101 mls/hr Documented By: MSG Metoprolol Tartrate (Metoprolol Tartrate 1 Mg/Ml Vial) 5 mg IV NOW STA Stop: 07/08/24 11:55 Last Admin: 07/08/24 12:15 Dose: 5 mg Documented By: MSG Ondansetron HCl (Ondansetron Inj 2 Mg/Ml 2 Ml Vial) 4 mg IV NOW STA Stop: 07/08/24 11:56 Last Admin: 07/08/24 12:15 Dose: 4 mg Documented By: MSG Imaging Data Radiologist's Impression: Chest X-Ray 07/08/24 10:21 SINGLE VIEW CHEST CLINICAL HISTORY: Atypical chest pain. FINDINGS: An AP, portable, upright chest radiograph is compared to study dated 03/01/2023 and correlated with chest CT dated 09/15/2022. The heart is enlarged noting atherosclerotic calcification of the thoracic aorta. The pulmonary vasculature is noncongested. There is bibasilar scarring/atelectasis. The lungs and pleural spaces are otherwise clear. No pneumothorax is seen. The skeletal structures are osteopenic. The bony thorax is grossly intact. Arthritic change is noted in the shoulders. IMPRESSION: Cardiomegaly with no acute cardiopulmonary abnormality identified. ACT 112: Negative or not required by law. Electronically signed by: Michael Langford M.D. 07/08/2024 10:53 AM Discharge Plan Visit Data Chief Complaint: Cardiac Assessment ED Provider: Thang Nelson Discharge Problem: COVID-19, Atrial fibrillation with rapid ventricular response, Generalized weakness, Gastroenteritis due to COVID-19 virus Patient Disposition: Admitted As Inpatient Discharge Instructions Interventions: ED Discharge Assessment Last Done: 07/08/24 15:16
[2024-07-08] MEDS: MAGNESIUM SULFATE / D5W 1 GM/100 ML BAG IV STA (11:35)
[2024-07-08 11:51] LABS: INR > 9.5 (0.9-1.1)
--- NOTE | 2024-07-08 11:59 | History & Physical Report ---
Date of Service July 08, 2024 Assessment & Plan (1) COVID-19: Plan: Worsening productive cough, sore throat, fatigue, and MUNIZ x 2 weeks COVID (+) on arrival Isolation precautions Non-hypoxic on room air on arrival CXR on arrival without acute cardiopulmonary abnormalities No leukocytosis; afebrile; continue to monitor for concomitant pneumonia Procalcitonin ordered, pending Supportive care Incentive spirometry, flutter valve Guaifenesin 600 mg p.o. BID for cough Acetaminophen as needed for pain/fever Zofran as needed for nausea/vomiting Continuous pulse oximetry Supplemental oxygen as needed to maintain SpO2 >94% A.m. CBC, BMP, PT/INR, Mag (2) Elevated INR: Plan: Supratherapeutic INR >9.5 on arrival on 07/08 INR was 3.0 on 07/03 No signs of active bleeding on clinical exam Vitamin K 5mg IV x 1 Hold warfarin Trend PT/INR (3) Atrial fibrillation with RVR: Plan: EKG on arrival showed atrial fibrillation with RVR at 120 bpm Troponin and TSH WNL Lopressor 5 mg IV q6h as needed for HR >140bpm Continue home medications Continuous telemetry monitoring (4) History of breast cancer: Plan: Continue anastrazole Plan Disposition: Admit to PCU telemetry Full code AHA diet VTE PPx: Hold warfarin in the setting of elevated PT/INR; Teds History of Present Illness Chief Complaint: Productive cough, fatigue Primary Care Provider: Lidya DO Amanda Trejo is an 79-year-old female with PMH of HTN, HLD, breast cancer s/p bilateral mastectomy (on anastrazole), paroxysmal atrial fibrillation (on warfarin), and hypothyroidism. She presented on 07/08 for productive cough, sore throat, and generalized fatigue x 2 weeks. She reports that her symptoms started on June 24, and have gradually worsened. While she denies SOB at rest, she does endorse worsening MUNIZ. Her cough is productive (sticky/yellow/clear phlegm production). No hemoptysis or pleuritic CP. Patient reports she has not been eating or drinking well since her symptoms started. She was recently placed on Augmentin on 07/02, but she has been having some nausea and vomiting over the past week and has been had difficulty keeping her medications down. No supplemental oxygen at baseline. No CPAP at night. No sick contacts to her knowledge. She has never had COVID in the past, but reports she is up-to-date on shots and boosters; note, she has not had her booster yet this year. Patient reports that she only took her levothyroxine this morning; last took warfarin last night (she normally takes in the evenings). She manages her own medicine at home. Only recent change in medication was that her metoprolol was increased from 1 tablet daily to 1.5 tablets BID. She denies any recent falls or injuries to the chest wall/abdomen/pelvis. Patient reports her home pulse ox has always been at or above 95% over the past 2 weeks. Patient is hypertensive at 142/97 and tachycardic at 104 bpm at time of admission; SpO2 97% on 2L NC. EMS: Diltiazem 10 mg IV ED course: Magnesium sulfate 1 g IV Acetaminophen 1000 mg IV NSS 500 mL IV Lopressor 5 mg IV Famotidine 20 mg IV Zofran 4 mg IV ROS: Patient endorses cold intolerance (chronic), worsening MUNIZ, productive cough (yellow/clear phlegm production), nausea, vomiting (resolved 2 days ago), and diarrhea. Patient denies fever, chills, night sweats, dizziness/lightheadedness, headache, chest pain, chest palpitations, pleuritic CP, hemoptysis, abdominal pain, change in urinary/bowel habits, or blood in the urine or stool. Allergies Allergy/AdvReac Type Severity Reaction Status Date / Time ciprofloxacin Allergy Intermediate ITCHY Verified 07/08/24 12:49 metronidazole Allergy Intermediate ITCHY Verified 07/08/24 12:49 amoxicillin [From Augmentin] AdvReac Severe Gastrointestinal Unverified 07/08/24 12:49 Upset clavulanic acid AdvReac Severe Gastrointestinal Unverified 07/08/24 12:49 [From Augmentin] Upset cheese AdvReac Intermediate "real Verified 07/08/24 12:49 cheese" - n/v Home Medications Medication Instructions Recorded Confirmed Type calcium 600 mg (as 1 tab PO BID 03/06/19 07/08/24 History carbonate)-vitamin D3 20 mcg (800 unit) tablet docusate sodium 100 mg capsule See Rx Instructions .Route .COMPLEX 05/13/19 07/08/24 History Mattress (Air or other) #1 ea 07/12/21 07/02/24 Rx compress.stocking,knee,reg,med #2 ea 07/12/21 07/02/24 Rx anastrozole 1 mg tablet 1 mg PO QAM 09/13/22 07/08/24 History ascorbic acid (vitamin C) 500 mg 500 mg PO QAM 04/25/23 07/08/24 History tablet (Vitamin C) metoprolol tartrate 100 mg tablet 150 mg (1.5 x 100 mg) PO BID #270 12/08/23 07/08/24 Rx tabs atorvastatin 20 mg tablet 20 mg PO QAM #90 tabs 02/28/24 07/08/24 Rx levothyroxine 50 mcg tablet 50 mcg PO QAM #90 tabs 02/28/24 07/08/24 Rx losartan 100 mg tablet 100 mg PO QPM #90 tabs 02/28/24 07/08/24 Rx warfarin 2 mg tablet 2 mg PO .COMPLEX #180 tabs 04/29/24 07/08/24 Rx cyanocobalamin (vitamin B-12) 1,000 mcg PO DAILY 07/08/24 07/08/24 History 1,000 mcg tablet (Vitamin B-12) omega [id number] oil 1,000 mg 1 cap PO BID 07/08/24 07/08/24 History (120 mg-180 mg) capsule (Fish Oil) Past Med/Surg History Problem List (Updated 07/08/24 @ 18:52 by Thang Nelson MD) Gastroenteritis due to COVID-19 virus (Acute) Generalized weakness (Acute) Atrial fibrillation with rapid ventricular response (Acute) COVID-19 (Acute) Atrial fibrillation with RVR Elevated INR Moderate pulmonary hypertension Prediabetes History of mastectomy Arthritis of shoulder Scar conditions and fibrosis of skin Atrial flutter (Acute) Hypothyroidism (Acute) Insomnia (Acute) Paroxysmal atrial fibrillation (Acute) Pre-diabetes (Acute) Uterine prolapse (Acute) H/O foot surgery Osteoarthritis of right shoulder History of breast cancer Chronic kidney disease (CKD), stage III (moderate) (Acute) Stable per patient; follows with nephro PRN Venous insufficiency of both lower extremities Hyperlipidemia Hypertension Medical History History of left breast cancer Hypophosphatemia Hypercalcemia Foot pain, bilateral Hx of Clostridium difficile infection 2006 Hypothyroidism Paroxysmal atrial fibrillation Dx/ed 2012 with episodes of RVR, burden stable per [facility]; F/U DR. 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 Dr. Finn *LEFT LIMB RESTRICTION History of bilateral mastectomy H/O breast biopsy MULTIPLE H/O colonoscopy History of arthroscopy of left shoulder History of bunionectomy R&L Family History Father Congestive heart failure Heart disease Myocardial infarction Mother Thyroid disorder Sister Liver cancer Thyroid cancer Alzheimer disease Breast cancer Daughter Atrial fibrillation Kidney disease End stage, on dialysis Brother Family history of colon cancer Cancer Other Family history of pancreatic cancer Denies family history of Ovarian cancer Prostate cancer Diabetes Lung cancer Colorectal cancer Stroke Social History Smoking Status: Never smoker Second Hand Exposure: No; Do You Dip or Chew Tobacco: No; Tobacco Cessation Education Requested by Patient: No Hx Alcohol Use: No Hx Substance Use: No Preferred Language: Qatari Communication Ability: Effective Visual Impairment: Partially Limited Hearing Ability: Normal Air Traffic Control Manager Required: No Beliefs That Will Affect Care: None marital status: / Current Living Situation: Family Current Living Situation Comment: DAUGHTER current occupational status: retired How many Children do You have: 4 Other Information That Helps Us Care for You: Yes Feels Safe at Home: Yes Safety Concerns: Feels Safe At This Time Childhood Exposure to Second-Hand Smoke: No Diet: regular caffeine: No during the past year weight has: remained stable Dental Care, Regularly: Yes Physical Activity Frequency: 1-2 Times per Week Seatbelt Use: always Sunscreen Use: Yes Assistive Devices: Cane and Glasses Review of Systems Review of Systems: See HPI above Physical Exam Physical Exam: General: Mild respiratory distress; pleasant affect; non-toxic appearing; frail appearing; cooperative; SpO2 97% on RA HEENT: normocephalic, atraumatic; no scleral icterus; PERRLA; vision and hearing intact Neck: supple; no lymphadenopathy; trachea midline Skin: warm, dry without signs of tenting; no cyanosis; no rashes, bruising, lesions, or erythema noted CV: chest wall NTP; irregularly irregular rhythm tachycardic at 104 bpm; S1/S2 normal; no murmurs/rubs/gallops; pulses intact and symmetric at radial, DP, and PT Lungs: Mild respiratory distress; conversational dyspnea; symmetrical chest wall expansion; clear breath sounds across all lung gaviria w/o adventitious sounds; no wheezing ABD: Soft, NTP; BS present; no rebound/guarding; no distention MSK: no tics or fasciculations; no edema noted in the LEs b/l, nonerythematous Neuro: A&Ox3; normal mood and affect; fluent speech; no focal deficits; sensation intact and symmetric in the LEs b/l Trialed patient on room air Patient exhibited an SpO2 of 97% on RA with good waveform despite being off oxygen for several minutes Results & Data Results & Data Vital Signs (Past 12 Hours) Vital Signs Temp Pulse Pulse Resp BP BP Pulse Ox 07/08/24 11:21 104 H 24 142/97 H 97 07/08/24 11:00 98 07/08/24 11:00 134 H 24 119/99 98 07/08/24 10:58 130 H 07/08/24 10:50 134 H 24 98 07/08/24 10:50 36.7 C 134 H 24 119/77 98 07/08/24 10:50 O2 Del Method O2 Flow Rate 07/08/24 11:21 Nasal Cannula 2 07/08/24 11:00 Nasal Cannula 2 07/08/24 11:00 Nasal Cannula 2 07/08/24 10:58 07/08/24 10:50 Nasal Cannula 2 07/08/24 10:50 Nasal Cannula 2 07/08/24 10:50 Nasal Cannula 2 Laboratory Results Abnormal lab results 07/08/24 Range/Units 10:29 Hgb 11.7 L (12.0-16.0) g/dl Hct 35.0 L (37.0-47.0) % Lymph # (Auto) 1.07 L (1.20-3.40) K/uL PT > 90.0 H (9.0-12.0) Seconds INR > 9.5 H* (0.9-1.1) Glucose 150 H (70-99(Fasting)) mg/dl Phosphorus 2.2 L (2.5-4.9) mg/dl Diagnostic Findings Chest X-Ray 07/08/24 10:21 SINGLE VIEW CHEST CLINICAL HISTORY: Atypical chest pain. FINDINGS: An AP, portable, upright chest radiograph is compared to study dated 03/01/2023 and correlated with chest CT dated 09/15/2022. The heart is enlarged noting atherosclerotic calcification of the thoracic aorta. The pulmonary vasculature is noncongested. There is bibasilar scarring/atelectasis. The lungs and pleural spaces are otherwise clear. No pneumothorax is seen. The skeletal structures are osteopenic. The bony thorax is grossly intact. Arthritic change is noted in the shoulders. IMPRESSION: Cardiomegaly with no acute cardiopulmonary abnormality identified. ACT 112: Negative or not required by law. Electronically signed by: Michael Langford M.D. 07/08/2024 10:53 AM ECG Additional Comments: ECG revealed atrial fibrillation with RVR at 129 bpm; QTc 460 History of atrial fibrillation on prior EKGs Code Status & VTE Plan Code Status Full code (she would want her two sons - Harish and Anshu - to be medical proxy's and an emergency situation) VTE Prophylaxis Plan VTE Prophylaxis will be ordered: Yes Supervising Physician Co-Signing Physician Notes I personally saw and examined the patient. I independently reviewed the labs, EKG, imaging, problem list, medication list, past medical history and family history. I verified all velazquez points and agree with Jason Bailey PA-C with the following exceptions and/or additions: 79 year old female presents to the ER with not eating, drinking, generalized fatigue after recent diagnosis of COVID O/E HS irregular rhythm, increased rate, no murmurs, Chest CTAB, Abdo SNT. A/P COVID-19 - outside window for antivirals, not hypoxic to warrant steroids, supportive care Hypertension - hold evening losartan to allow up titration of BB if ended Elevated INR - vitamin K 5mg IV repeat INR in AM, suspect increase due to change in diet A. fib RVR - suspect she just missed her morning metoprolol, will use IV PRN dosing up until resuming her normal medications tonight PG Care Time/CCT Total # of Minutes Spent Total Time Spent with Patient: Total time spent is greater than 50% in coordination of care (as documented) at patient's floor/unit and/or counseling patient: C[place] [address] INT INP/OBS CARE 375MIN Patient Type Established Medical Decision Making High Complexity Diagnoses COVID-19 U07.1 Elevated INR R79.1 Atrial fibrillation with RVR I48.91 History of breast cancer Z85.3
[2024-07-08 12:00] LABS: Thyroid Stimulating Hormone 0.964 uIu/ml (0.300-4.500); Troponin I High Sensitivity 5.1 pg/ml (0-14)
[2024-07-08 12:04] LABS: Adenovirus PCR Not Detected (NotDetected); Bordetella parapertussis PCR Not Detected (NotDetected); Bordetella pertussis PCR Not Detected (NotDetected); Chlamydia pneumoniae PCR Not Detected (NotDetected); Coronavirus 229E PCR Not Detected (NotDetected); Coronavirus CoV-2 (COVID19)PCR DETECTED (NotDetected); Coronavirus HKU1 PCR Not Detected (NotDetected); Coronavirus NL63 PCR Not Detected (NotDetected); Coronavirus OC43PCR Not Detected (NotDetected); Human Metapneumovirus PCR Not Detected (NotDetected); Influenza A PCR Not Detected (NotDetected); Influenza B PCR Not Detected (NotDetected); Mycoplasma pneumoniae PCR Not Detected (NotDetected); Parainfluenza Virus 1 PCR Not Detected (NotDetected); Parainfluenza Virus 2 PCR Not Detected (NotDetected); Parainfluenza Virus 3 PCR Not Detected (NotDetected); Parainfluenza Virus 4 PCR Not Detected (NotDetected); Respiratory Syncytial VirusPCR Not Detected (NotDetected); Rhinovirus/Enterovirus PCR Not Detected (NotDetected)
[2024-07-08] MEDS: ONDANSETRON INJ 2 MG/ML 2 ML VIAL IV STA (12:15)
[2024-07-08] MEDS: METOPROLOL TARTRATE 1 MG/ML VIAL IV STA (12:15)
[2024-07-08] MEDS: FAMOTIDINE 20MG IV PUSH 20 MG/5 ML SYR IV STA (12:17)
[2024-07-08] MEDS: ACETAMINOPHEN 1,000 MG/100 ML VIAL IV STA (12:49)
[2024-07-08] MEDS: PHYTONADIONE 5 MG in DEXTROSE 5% 50 ML IV ONE (13:44)
[2024-07-08] MEDS ORDERED: ONDANSETRON INJ 2 MG/ML 2 ML VIAL IV PRN (15:55)
[2024-07-08] MEDS ORDERED: ACETAMINOPHEN 325 MG TAB PO PRN (15:55)
--- NOTE | 2024-07-08 16:12 | Electrocardiogram Report ---
Test Reason : Blood Pressure : */* mmHG Vent. Rate : 129 BPM Atrial Rate : * BPM P-R Int : * ms QRS Dur : 72 ms QT Int : 314 ms P-R-T Axes : * -39 46 degrees QTcB Int : 460 ms Atrial fibrillation with rapid ventricular response Left axis deviation Septal infarct , age undetermined Abnormal ECG When compared with ECG of 29-May-2023 06:22, Atrial fibrillation has replaced Sinus rhythm Vent. rate has increased by 66 bpm QRS axis Shifted left Septal infarct is now Present Confirmed by Ricardo Alejandro ([id number]) on 07/08/2024 4:11:59 PM Referred By: Confirmed By: Ricardo Alejandro
[2024-07-08] MEDS ORDERED: LOSARTAN POTASSIUM 50 MG TAB PO SCH (21:00)
[2024-07-08] MEDS: METOPROLOL TARTRATE 50 MG TAB PO SCH (22:17)
[2024-07-08] MEDS: guaiFENesin 600 MG TABCR PO SCH (22:17)
[2024-07-08] MEDS: DOCUSATE SODIUM 100 MG CAP PO SCH (22:19)
[2024-07-09] MEDS: LEVOTHYROXINE SODIUM 50 MCG TABLET PO SCH (06:13)
[2024-07-09 06:56] LABS: Basophils # (auto) 0.04 K/uL (0.00-0.20); Basophils % (auto) 0.5 %; Eosinophils # (auto) 0.09 K/uL (0.00-0.50); Eosinophils % (auto) 1.2 %; Hematocrit (blood only) 36.8 % (37.0-47.0); Immature Granulocytes # (auto) 0.05 K/uL (0.01-0.20); Immature Granulocytes % (auto) 0.7 %; Lymphocytes # (auto) 1.22 K/uL (1.20-3.40); Lymphocytes % (auto) 16.6 %; Mean Corpuscular Hemoglobin 27.6 pg (25.0-34.0); Mean Corpuscular Hgb Conc 32.6 g/dL (32.0-36.0); Mean Corpuscular Volume 84.6 fL (80.0-100.0); Mean Platelet Volume 10.7 fL (9.4-12.4); Monocytes # (auto) 0.55 K/uL (0.11-0.59); Monocytes % (auto) 7.5 %; Neutrophils # (auto) 5.39 K/uL (1.40-6.50); Neutrophils % (auto) 73.5 %; Platelet Count 335 K/uL (130-400); RDW Coefficient of Variation 14.5 % (11.5-14.5); RDW Standard Deviation 44.4 fL (36.4-46.3); Red Blood Count 4.35 M/uL (4.20-5.40); White Blood Count 7.34 K/ul (4.8-10.8)
[2024-07-09 07:29] LABS: BUN Creatinine Ratio 10.5 (10-20); Calcium 9.2 mg/dl (8.6-10.3); Creatinine Clr Calc Pharmacy 41.8 ml/min; Potassium 4.2 mmol/L (3.5-5.1)
[2024-07-09 07:42] LABS: INR 1.2 (0.9-1.1); Prothrombin Time 13.2 Seconds (9.0-12.0)
[2024-07-09] MEDS: DOCUSATE SODIUM 100 MG CAP PO SCH (09:09)
[2024-07-09] MEDS: ANASTROZOLE 1 MG TAB PO SCH (09:09)
[2024-07-09] MEDS: ATORVASTATIN 20 MG TAB PO SCH (09:11)
--- NOTE | 2024-07-09 10:17 | Hospitalist Progress Note ---
Date of Service July 09, 2024 Assessment & Plan (1) COVID-19: (2) Elevated INR: (3) Atrial fibrillation with RVR: (4) History of breast cancer: Plan #Afib w RVR - Diagnosed since at least 2012 - Chronically managed w metoprolol tartrate 150mg BID and warfarin Warfarin protocol at home: 2mg po on Mon/; 3mg all other days Previously tried amio, dig - EKG on arrival showed afib w RVR at 120 bpm - Trop & TSH wnl - Given IV metoprolol 5mg x1; continue prn Lopressor 5 mg IV q6h for HR >140bpm - Continue home dose metoprolol; warfarin held d/t elevated INR - Continuous telemetry monitoring #Elevated INR - Past INR (07/03) was 3; on arrival, 9.5; Given Vitamin K 5mg IV x 1 - Improved today to 1.2 - Goal therapeutic range [2-3] - No signs of active bleeding - Warfarin held on 07/08 - Continue trending PT/INR #COVID-19 + - Worsening productive cough, sore throat, fatigue, and MUNIZ x 2 weeks - COVID PCR+ on 07/08 --> isolation precautions - CXR on 07/08 showed no acute cardiopulmonary abnormalities - No leukocytosis; Procal wnl; afebrile; O2 sat maintained >90% on on 2L n.c. - Continue supportive care Guaifenesin 600 mg p.o. BID for cough Acetaminophen as needed for pain/fever Zofran as needed for nausea/vomiting Incentive spirometry, flutter valve Supplemental oxygen as needed to maintain SpO2 >94% Chronic conditions - h/o breast cancer - continue anastrazole - HLD - continue atorvastatin - HTN - continue losartan held 07/08 due to BP down to 100s/60s - Hypothyroidism - continue levothyroxine Full code AHA diet VTE PPx: Hold warfarin in the setting of elevated PT/INR; Teds Admission and Anticipated Discharge Date Admission Date: July 08, 2024 Supervising Physician Co-Signing Physician Notes I personally examined the patient and verified all velazquez points of history and exam, discussed case, and agree with decision making with Dr Hernandez feeling much better overall. No new complaints. Discussed today current management. Answered all questions to the best my ability. . Vitals noted, in general she is awake and alert pleasant no distress. HEENT normocephalic atraumatic mucous membranes moist. Breathing unlabored no accessory muscle use good effort. Skin without rashes pallor or icterus. Neuro without focal deficits. Dehydrationappears to have viral illnesslikely COVID causing UTI/dehydrationthat is now improved. A-fib/RVRhard to tell if she is currently still in a reflexive tachycardia with A-fib as her [place] rhythm, or if she is truly in RVR. Her rates are somewhat erratic right now she is asymptomaticfollow into tomorrow. If her rates are improving spontaneously, it was all reactive to being sick. At the same time if not slowing down, currently rate controlled for the short-term. coumadin coagulopathylikely due to take coumadin with suboptimal oral statusno bleeding. Vitamin K has corrected her to 1.2. Resume Coumadin and follow. Subjective Feeling well this morning, except extremely cold. Easier to talk to after some warm blankets. Reports feeling "99.9% better." Is able to eat and drink w/o any GI distress now. Tearful when talking about how much of a relief that is. Some palpitations. Mild cough, only mentioned when asked directly. Denies CP, SOB, abd pain, n/v/d, dizziness, weakness. Review of Systems 2 Review of Systems: As per HPI. Physical Exam 2 Physical Exam: Gen: NAD, extremely cold w/o several warm blankets HEENT: NCAT, PERRL CV: irregular rhythm, elevated rate, no m/r/g Resp: CTAB, symmetrical chest rise, breathing non-labored, no cough Abd: Soft, NT/ND, +BS Skin: Warm, dry, pink, no rashes or lesions Neuro: AOx3, CN II-XII grossly intact Results & Data Results & Data Vital Signs (Past 12 Hours) Vital Signs Temp Pulse Resp BP Pulse Ox O2 Del Method 07/09/24 09:15 Room Air 07/09/24 07:56 36.5 C 124 H 24 129/93 98 Room Air 07/09/24 04:18 36.3 C L 112 H 28 H 116/86 93 Room Air 07/08/24 22:21 36.5 C 112 H 18 118/68 97 Room Air Laboratory Results 07/09/24 05:43 07/09/24 05:43 Diagnostic Findings Chest X-Ray 07/08/24 10:21 SINGLE VIEW CHEST CLINICAL HISTORY: Atypical chest pain. FINDINGS: An AP, portable, upright chest radiograph is compared to study dated 03/01/2023 and correlated with chest CT dated 09/15/2022. The heart is enlarged noting atherosclerotic calcification of the thoracic aorta. The pulmonary vasculature is noncongested. There is bibasilar scarring/atelectasis. The lungs and pleural spaces are otherwise clear. No pneumothorax is seen. The skeletal structures are osteopenic. The bony thorax is grossly intact. Arthritic change is noted in the shoulders. IMPRESSION: Cardiomegaly with no acute cardiopulmonary abnormality identified. Electronically signed by: Michael Langford M.D. 07/08/2024 10:53 AM Resident Activity Tracking Resident Involvement: Resident Care Provided Care Provided: Adult Hospital Medicine
--- NOTE | 2024-07-09 17:03 | Billing Data ---
Date of Service July 09, 2024 Coding Level of Care Code 50933 SUB INP/OBS CARE
[2024-07-09] MEDS: WARFARIN SOD 3 MG TAB PO SCH (18:47)
[2024-07-10 07:09] LABS: Basophils # (auto) 0.05 K/uL (0.00-0.20); Basophils % (auto) 0.6 %; Eosinophils % (auto) 1.2 %; Hematocrit (blood only) 32.5 % (37.0-47.0); Immature Granulocytes # (auto) 0.08 K/uL (0.01-0.20); Lymphocytes # (auto) 1.59 K/uL (1.20-3.40); Lymphocytes % (auto) 19.6 %; Mean Corpuscular Hemoglobin 28.2 pg (25.0-34.0); Mean Corpuscular Hgb Conc 33.8 g/dL (32.0-36.0); Mean Corpuscular Volume 83.3 fL (80.0-100.0); Mean Platelet Volume 10.5 fL (9.4-12.4); Monocytes # (auto) 0.77 K/uL (0.11-0.59); Monocytes % (auto) 9.5 %; Neutrophils # (auto) 5.53 K/uL (1.40-6.50); Neutrophils % (auto) 68.1 %; Platelet Count 361 K/uL (130-400); RDW Coefficient of Variation 14.6 % (11.5-14.5); RDW Standard Deviation 43.9 fL (36.4-46.3); White Blood Count 8.12 K/ul (4.8-10.8)
[2024-07-10 07:28] LABS: INR 1.4 (0.9-1.1); Prothrombin Time 14.4 Seconds (9.0-12.0)
[2024-07-10 07:50] LABS: BUN Creatinine Ratio 11.1 (10-20); Calcium 8.9 mg/dl (8.6-10.3); Creatinine Clr Calc Pharmacy 44.1 ml/min; Potassium 4.1 mmol/L (3.5-5.1)
[2024-07-10] MEDS: METOPROLOL TARTRATE 50 MG TAB PO STA (12:15)
--- NOTE | 2024-07-10 17:36 | Hospitalist Progress Note ---
Date of Service July 10, 2024 Assessment & Plan (1) Atrial fibrillation with RVR: (2) COVID-19: (3) Elevated INR: (4) History of breast cancer: Plan #Afib w RVR - Diagnosed since at least 2012 - Chronically managed w metoprolol tartrate 150mg BID and warfarin Warfarin protocol at home: 2mg po on Mon/; 3mg all other days Previously tried amio, dig - EKG on arrival showed afib w RVR at 120 bpm - Trop & TSH wnl - Given IV metoprolol 5mg x1; continue prn Lopressor 5 mg IV q6h for HR >140bpm - Continue home dose metoprolol; warfarin held d/t elevated INR - Given extra 50mg metoprolol 07/10 AM - Continuous telemetry monitoring HR range narrower than yesterday but still up to the 140s Up-titrate metoprolol; safe for d/c home (w HH) once stably 90~110 #Elevated INR - Past INR (07/03) was 3; on arrival, 9.5; 1.4 today - Given Vitamin K 5mg IV x 1 - No signs of active bleeding - Warfarin held on 07/08 - Continue trending PT/INR #COVID-19 + - Worsening productive cough, sore throat, fatigue, and MUNIZ x 2 weeks - COVID PCR+ on 07/08 --> isolation precautions - CXR on 07/08 showed no acute cardiopulmonary abnormalities - No leukocytosis; Procal wnl; afebrile; O2 sat maintained >90% on on 2L n.c. - Continue supportive care Guaifenesin 600 mg p.o. BID for cough Acetaminophen as needed for pain/fever Zofran as needed for nausea/vomiting Incentive spirometry, flutter valve Supplemental oxygen as needed to maintain SpO2 >94% Chronic conditions - h/o breast cancer - continue anastrazole - HLD - continue atorvastatin - HTN - continue losartan held 07/08 due to BP down to 100s/60s - Hypothyroidism - continue levothyroxine Full code AHA diet VTE PPx: Hold warfarin in the setting of elevated PT/INR; Teds Admission and Anticipated Discharge Date Admission Date: July 08, 2024 Supervising Physician Co-Signing Physician Notes I personally examined the patient and verified all velazquez points of history and exam, discussed case, and agree with decision making with Dr David Upset about still being in hospital, does not feel symptoms from the atrial fibrillation. [id number] notes she may need to go to rehab. Vitals noted, in general she is awake and alert pleasant no distress. HEENT normocephalic atraumatic mucous membranes moist. Breathing unlabored no accessory muscle use good effort. Skin without rashes pallor or icterus. Neuro without focal deficits. Dehydrationappears to have viral illnesslikely COVID causing UTI/dehydrationthat is now improved. A-fib/RVR rates not improving, added additional metoprolol earlier today to no effect, will add diltiazem on top. I suspect the RVR will be temporary as it initially started as a reflex tachycardia in response to being sick/dehydrated coumadin coagulopathylikely due to take coumadin with suboptimal oral statusno bleeding. INR 1.4. Resumed Coumadin and follow. PT/OT eval and treat - ?rehab Subjective Feeling okay this morning. Still feeling excessively cold. Unhappy to be staying here another day. Denies CP, SOB, abd pain, n/v/d, dizziness. Expresses some concern for weakness, ability to care for herself at home w/ daughter. Review of Systems 2 Review of Systems: As per HPI. Physical Exam 2 Physical Exam: Gen: NAD, extremely cold w/o several warm blankets HEENT: NCAT, PERRL CV: irregular rhythm, elevated rate, no m/r/g Resp: CTAB, symmetrical chest rise, breathing non-labored, no cough Abd: Soft, NT/ND, +BS Skin: Warm, dry, pink, no rashes or lesions Neuro: AOx3, CN II-XII grossly intact Results & Data Results & Data Vital Signs (Past 12 Hours) Vital Signs Temp Pulse Pulse Resp BP Pulse Ox O2 Del Method 07/10/24 13:47 100 H 07/10/24 11:52 Room Air 07/10/24 11:43 36.5 C 115 H 20 113/77 97 Room Air 07/10/24 07:37 37.2 C 124 H 18 103/64 94 Room Air Laboratory Results 07/10/24 06:13 07/10/24 06:13 Resident Activity Tracking Resident Involvement: Resident Care Provided Care Provided: Adult [facility] Medicine
[2024-07-10] MEDS: METOPROLOL TARTRATE 1 MG/ML VIAL IV PRN (17:58)
--- NOTE | 2024-07-10 18:28 | Billing Data ---
Date of Service July 10, 2024 Coding Level of Care Code 07188 SUB INP/OBS CARE
[2024-07-10] MEDS: WARFARIN SOD 2 MG TAB PO SCH (18:46)
[2024-07-10] MEDS: dilTIAZem HCL 30 MG TAB PO ONE (19:30)
[2024-07-11] MEDS: dilTIAZem HCL 30 MG TAB PO SCH (05:16)
[2024-07-11 07:32] LABS: Basophils # (auto) 0.04 K/uL (0.00-0.20); Basophils % (auto) 0.6 %; Eosinophils % (auto) 1.4 %; Hematocrit (blood only) 34.9 % (37.0-47.0); Hemoglobin 11.4 g/dl (12.0-16.0); Immature Granulocytes # (auto) 0.06 K/uL (0.01-0.20); Immature Granulocytes % (auto) 0.9 %; Lymphocytes # (auto) 1.72 K/uL (1.20-3.40); Lymphocytes % (auto) 24.6 %; Mean Corpuscular Hemoglobin 27.4 pg (25.0-34.0); Mean Corpuscular Hgb Conc 32.7 g/dL (32.0-36.0); Mean Corpuscular Volume 83.9 fL (80.0-100.0); Mean Platelet Volume 10.1 fL (9.4-12.4); Monocytes # (auto) 0.69 K/uL (0.11-0.59); Monocytes % (auto) 9.9 %; Neutrophils # (auto) 4.37 K/uL (1.40-6.50); Neutrophils % (auto) 62.6 %; Platelet Count 428 K/uL (130-400); RDW Standard Deviation 45.3 fL (36.4-46.3); Red Blood Count 4.16 M/uL (4.20-5.40); White Blood Count 6.98 K/ul (4.8-10.8)
[2024-07-11 07:47] VITALS: RESP 19
[2024-07-11 07:55] LABS: INR 2.3 (0.9-1.1); Prothrombin Time 23.5 Seconds (9.0-12.0)
--- NOTE | 2024-07-11 07:59 | Discharge Summary ---
Date of Service July 11, 2024 Admission HPI Per Admitting Provider Amanda is an 79-year-old female with PMH of HTN, HLD, breast cancer s/p bilateral mastectomy (on anastrazole), paroxysmal atrial fibrillation (on warfarin), and hypothyroidism. She presented on 07/08 for productive cough, sore throat, and generalized fatigue x 2 weeks. She reports that her symptoms started on June 24, and have gradually worsened. While she denies SOB at rest, she does endorse worsening MUNIZ. Her cough is productive (sticky/yellow/clear phlegm production). No hemoptysis or pleuritic CP. Patient reports she has not been eating or drinking well since her symptoms started. She was recently placed on Augmentin on 07/02, but she has been having some nausea and vomiting over the past week and has been had difficulty keeping her medications down. No supplemental oxygen at baseline. No CPAP at night. No sick contacts to her knowledge. She has never had COVID in the past, but reports she is up-to-date on shots and boosters; note, she has not had her booster yet this year. Patient reports that she only took her levothyroxine this morning; last took warfarin last night (she normally takes in the evenings). She manages her own medicine at home. Only recent change in medication was that her metoprolol was increased from 1 tablet daily to 1.5 tablets BID. She denies any recent falls or injuries to the chest wall/abdomen/pelvis. Patient reports her home pulse ox has always been at or above 95% over the past 2 weeks. Patient is hypertensive at 142/97 and tachycardic at 104 bpm at time of admission; SpO2 97% on 2L NC. EMS: Diltiazem 10 mg IV ED course: Magnesium sulfate 1 g IV Acetaminophen 1000 mg IV NSS 500 mL IV Lopressor 5 mg IV Famotidine 20 mg IV Zofran 4 mg IV ROS: Patient endorses cold intolerance (chronic), worsening MUNIZ, productive cough (yellow/clear phlegm production), nausea, vomiting (resolved 2 days ago), and diarrhea. Patient denies fever, chills, night sweats, dizziness/lightheadedness, headache, chest pain, chest palpitations, pleuritic CP, hemoptysis, abdominal pain, change in urinary/bowel habits, or blood in the urine or stool. Admission Exam Per Admitting Provider General: Mild respiratory distress; pleasant affect; non-toxic appearing; frail appearing; cooperative; SpO2 97% on RA HEENT: normocephalic, atraumatic; no scleral icterus; PERRLA; vision and hearing intact Neck: supple; no lymphadenopathy; trachea midline Skin: warm, dry without signs of tenting; no cyanosis; no rashes, bruising, lesions, or erythema noted CV: chest wall NTP; irregularly irregular rhythm tachycardic at 104 bpm; S1/S2 normal; no murmurs/rubs/gallops; pulses intact and symmetric at radial, DP, and PT Lungs: Mild respiratory distress; conversational dyspnea; symmetrical chest wall expansion; clear breath sounds across all lung gaviria w/o adventitious sounds; no wheezing ABD: Soft, NTP; BS present; no rebound/guarding; no distention MSK: no tics or fasciculations; no edema noted in the LEs b/l, nonerythematous Neuro: A&Ox3; normal mood and affect; fluent speech; no focal deficits; sensation intact and symmetric in the LEs b/l Trialed patient on room air Patient exhibited an SpO2 of 97% on RA with good waveform despite being off oxygen for several minutes Principal Diagnosis Afib, COVID Discharge Exam Gen: NAD, extremely cold w/o several warm blankets HEENT: NCAT, PERRL CV: irregular rhythm, elevated rate, no m/r/g Resp: CTAB, symmetrical chest rise, breathing non-labored, no cough Abd: Soft, NT/ND, +BS Skin: Warm, dry, pink, no rashes or lesions Neuro: AOx3, CN II-XII grossly intact Discharge Data Allergies Allergy/AdvReac Type Severity Reaction Status Date / Time ciprofloxacin Allergy Intermediate ITCHY Verified 07/08/24 12:49 metronidazole Allergy Intermediate ITCHY Verified 07/08/24 12:49 amoxicillin [From Augmentin] AdvReac Severe Gastrointestinal Unverified 07/08/24 12:49 Upset clavulanic acid AdvReac Severe Gastrointestinal Unverified 07/08/24 12:49 [From Augmentin] Upset cheese AdvReac Intermediate "real Verified 07/08/24 12:49 cheese" - n/v Consultations 07/08/24 12:13 ED Decision to Admit Stat Ordered Studies 07/11/24 06:58 07/11/24 06:58 INR 2.3 (0.9-1.1) H 07/11/24 06:58 Hospital Course (1) Atrial fibrillation with RVR: (2) COVID-19: (3) Elevated INR: (4) History of breast cancer: Plan #Afib w RVR - Diagnosed since at least 2012 - Chronically managed w metoprolol tartrate 150mg BID and warfarin Warfarin protocol at home: 2mg po on ; 3mg all other days Previously tried amio, dig - EKG on arrival showed afib w RVR at 120 bpm - Trop & TSH wnl - Given IV metoprolol 5mg x1; w Lopressor 5 mg IV q6h available if HR >140bpm - Kept on home dose metoprolol; warfarin held until INR normalized - Given extra 50mg metoprolol 07/10 AM - Given 30mg diltiazem on 07/10 and 60mg on 07/11 - Kept on telemetry monitoring; deemed safe for d/c home once stably 90~110 after higher dose of dilt - Discharged w daily 180mg extended-release diltiazem; evaluate need to continue this med at f/u cardiology appt #Elevated INR - Past INR (on 07/03) was 3; INR on arrival was 9.5; improved to 2.3 on day of discharge - Given Vitamin K 5mg IV x 1 - No signs of active bleeding - Warfarin 3mg held on 07/08; resumed on 07/09 once INR back in therapeutic range #COVID-19 + - Worsening productive cough, sore throat, fatigue, and MUNIZ x 2 weeks - COVID PCR+ on 07/08 --> isolation precautions - CXR on 07/08 showed no acute cardiopulmonary abnormalities - No leukocytosis; Procal wnl; afebrile; O2 sat maintained >90% on on 2L n.c. - Treated during hospitalization w supportive care Guaifenesin 600 mg p.o. BID for cough Acetaminophen as needed for pain/fever Zofran as needed for nausea/vomiting Incentive spirometry, flutter valve Supplemental oxygen as needed to maintain SpO2 >94% Chronic conditions - h/o breast cancer - continue anastrazole - HLD - continue atorvastatin - HTN - continue losartan held 07/08 due to BP down to 100s/60s - Hypothyroidism - continue levothyroxine Full code AHA diet VTE PPx: Teds while warfarin was held Total Time Total Time Spent Total Time Spent (In Minutes): <30 Discharge Plan Discharge Items Patient Disposition: Home - Self-Care Reason For Visit: ELEVATED PT/INR, COVID Discharge Diagnosis: Afib, COVID Activity: Per Instructions section Non-emergency contact: Primary Care Provider and Lining Repairer Call non-emergency contact if: you have any medication questions and your symptoms worsen Follow-up/Referrals: Sabine Trejo DO [Primary Care Provider] - 07/25/24 10:30 am (Scheduled with Cindi Mohr PA-C on 07/25/24 at 10:30 am.) Diet: Regular and Heart Healthy Addtl Attending Provider Instructions: You were admitted to the hospital for 2 weeks of nausea, vomiting, and diarrhea. You also tested positive for COVID, and your INR was significantly higher than your therapeutic range. Your warfarin was held and you were given IV metoprolol, in addition to your normal dosage, and IV fluids. Your labs and symptoms improved, with your INR staying between 1.2-2.3, so the main concern became control of your heart rate. You were given a slightly higher dose of metoprolol, to minimal benefit, and then diltiazem (up to 60mg four times per day), and your heart rate improved to a range where we felt comfortable discharging you. You were also seen by PT/OT while in hospital, and they determined that you have good strength and can move well independently, so you will not need acute rehab or any further treatment from them. We encourage close follow-up with your primary care provider and your acquisition professional. It is very important that you follow up with them shortly after discharge from the hospital. Please bring a copy of this discharge summary with you to your next office appointment so your provider can review it and stay updated on your hospitalization and potential changes in your care. Your medication list has been reviewed and reconciled, and an updated list is included with your hospital discharge paperwork. Please review this list closely, and make note of any changes. We sent a new prescription for Diltiazem to the [facility] pharmacy. Take 1 x 180mg tablet daily. We believe you will only need to be on this medication temporarily. Check your heart rate regularly (ideally, 3 times per day) while taking it, and stop if you notice your heart rate is < 60 or you experience any dizziness/lightheadedness. Meet with your acquisition professional within a week of discharge to evaluate continued need for this medication. We also recommend regular appointments (ideally, weekly) to closely monitor your afib rate control. You may call [phone] and ask to leave a message for Dr. Hernandez if you have any questions about your hospitalization or your new medication. Contact your PCP or acquisition professional if you experience any palpitations, mild chest pain or shortness of breath, or have abnormal heart rates (<60 or >120). Call [phone] or go to the ER if you experience any of the following: Sudden, severe abdominal pain or nausea/vomiting Severe chest pain, or chest pain that radiates (moves) to your jaw or arm Sudden, severe shortness of breath or difficulty breathing Thank you for allowing us to participate in your care. Pending Studies at Discharge: No Stand-Alone Forms: My [facility], Smoking Cessation Medications and DC Order Prescriptions: New diltiazem HCl 180 mg capsule,extended release 24hr 180 mg PO DAILY Qty: 10 0RF Continued (DME) Mattress (Air or other) Misc See Rx Instructions .Route Qty: 1 0RF Rx Instructions: As directed (DME) compress.stocking,knee,reg,med Misc See Rx Instructions .Route Qty: 2 0RF Rx Instructions: As directed metoprolol tartrate 100 mg tablet 150 mg PO BID Qty: 270 3RF atorvastatin 20 mg tablet 20 mg PO QAM Qty: 90 3RF levothyroxine 50 mcg tablet 50 mcg PO QAM Qty: 90 3RF losartan 100 mg tablet 100 mg PO QPM Qty: 90 3RF warfarin 2 mg tablet 2 mg PO .COMPLEX Qty: 180 3RF Protocol: Dose Management Condition: Monday Dose/Route: 3 mg Instruction: 1 x 1 mg tablet, 1 x 2 mg tablet Condition: Monday Dose/Route: 3 mg Instruction: 1 x 1 mg tablet, 1 x 2 mg tablet Condition: Monday Dose/Route: 3 mg Instruction: 1 x 1 mg tablet, 1 x 2 mg tablet Condition: Monday Dose/Route: 2 mg Instruction: 1 x 2 mg tablet Condition: Dose/Route: 2 mg Instruction: 1 x 2 mg tablet Condition: Monday Dose/Route: 3 mg Instruction: 1 x 1 mg tablet, 1 x 2 mg tablet Condition: Monday Dose/Route: 3 mg Instruction: 1 x 1 mg tablet, 1 x 2 mg tablet Protocol Text: Adjustment Start Date: Monday07/03/24 INR Value: 3.0 INR Date: 07/03/24 Recheck Date: 07/08/24 Rx Instructions: Per clinic on 07/03/24 pt is to take 2mg by mouth on and 3mg all other days. Pt couldn't confirm exact days but does state it's 2mg 2 days and 3mg other days. anastrozole 1 mg tablet 1 mg PO QAM calcium carbonate-vitamin D3 600 mg(1,500mg) -800 unit tablet 1 tab PO BID Hold Instructions: surgery docusate sodium 100 mg capsule See Rx Instructions .ROUTE .COMPLEX Rx Instructions: 300MG IN THE MORNING 100MG AT BEDTIME ascorbic acid (vitamin C) [Vitamin C] 500 mg Tablet 500 mg PO QAM Hold Instructions: surgery cyanocobalamin (vitamin B-12) [Vitamin B-12] 1,000 mcg Tablet 1,000 mcg PO DAILY omega 6-sqm-zex-fish oil [Fish Oil] 1,000 (120-180) mg Capsule 1 cap PO BID Discharge Orders: Discharge Order (Routine); Ordered 07/11/24 Ordered By: Ej Hernandez Admission Data Admit Date/Time: 07/08/24 12:43 Attending Provider: Geovany Gonzales Admit Provider: Ovidio Wilson Primary Care Provider: Sabine Trejo Other Providers: Ovidio Wilson; [facility] Other Interventions: Discharge Summary Assessment (RN) Last Done: 07/11/24 17:39 Supervising Physician Co-Signing Physician Notes I personally examined the patient and verified all velazquez points of history and exam, discussed case, and agree with decision making with Dr Hernandez feels good did great with PT, feels up to going home. Vitals noted, in general she is awake and alert pleasant no distress. HEENT normocephalic atraumatic mucous membranes moist. Breathing unlabored no accessory muscle use good effort. Skin without rashes pallor or icterus. Neuro without focal deficits. afib now rate controlled Dehydrationappears to have viral illnesslikely COVID causing UTI/dehydrationthat is now improved. A-fib/RVR likely was initially reflex tachycardia due to above - but with afib then became RVR secondarily. did not respond to escalated metoprolol, eventually did with diltiazem in addition to metoprolol. now safe/stable for home. d/w pt multiple times during hospital stay: suspect that this is going to be temporary and that afib will likely return to prior baseline. check HR 2-3 times a day (notes she has a very reliable cuff) and if HR starts to show 60's and/or if feeling lightheaded/weak/fatigued - call PCP even if not yet time for f/u for instructions on weaning or dc of diltiazem. close PCP f/u. coumadin coagulopathylikely due to take coumadin with suboptimal oral statusno bleeding. INR 2.3. outpt f/u of INR (has home fingerstick INR) PT/OT eval and treat - ?rehab Resident Activity Tracking Resident Involvement: Resident Care Provided Care Provided: Adult Hospital Medicine
[2024-07-11 08:01] LABS: BUN Creatinine Ratio 11.1 (10-20); Calcium 9.1 mg/dl (8.6-10.3); Creatinine Clr Calc Pharmacy 44.1 ml/min
--- NOTE | 2024-07-11 11:18 | Hospitalist Progress Note ---
Date of Service July 11, 2024 Assessment & Plan (1) Atrial fibrillation with RVR: (2) COVID-19: (3) Elevated INR: (4) History of breast cancer: Plan #Afib w RVR - Diagnosed since at least 2012 - Chronically managed w metoprolol tartrate 150mg BID and warfarin Warfarin protocol at home: 2mg po on Mon/; 3mg all other days Previously tried amio, dig - EKG on arrival showed afib w RVR at 120 bpm - Trop & TSH wnl - Given IV metoprolol 5mg x1; continue prn Lopressor 5 mg IV q6h for HR >140bpm - Continue home dose metoprolol; warfarin held d/t elevated INR - Given extra 50mg metoprolol 07/10 AM - Continuous telemetry monitoring HR range narrower than yesterday but still up to the 140s Up-titrate metoprolol; safe for d/c home (w HH) once stably 90~110 #Elevated INR - Past INR (07/03) was 3; on arrival, 9.5; 1.4 today - Given Vitamin K 5mg IV x 1 - No signs of active bleeding - Warfarin held on 07/08 - Continue trending PT/INR #COVID-19 + - Worsening productive cough, sore throat, fatigue, and MUNIZ x 2 weeks - COVID PCR+ on 07/08 --> isolation precautions - CXR on 07/08 showed no acute cardiopulmonary abnormalities - No leukocytosis; Procal wnl; afebrile; O2 sat maintained >90% on on 2L n.c. - Continue supportive care Guaifenesin 600 mg p.o. BID for cough Acetaminophen as needed for pain/fever Zofran as needed for nausea/vomiting Incentive spirometry, flutter valve Supplemental oxygen as needed to maintain SpO2 >94% Chronic conditions - h/o breast cancer - continue anastrazole - HLD - continue atorvastatin - HTN - continue losartan held 07/08 due to BP down to 100s/60s - Hypothyroidism - continue levothyroxine Full code AHA diet VTE PPx: Hold warfarin in the setting of elevated PT/INR; Teds Admission and Anticipated Discharge Date Admission Date: July 08, 2024 Subjective Feeling okay this morning. Still feeling excessively cold, did not get out of bed this morning. Unhappy to still be here, complains that last time (likely, last year after mastectomy) she was told she can recover just as well at home. Denies CP, SOB, abd pain, n/v/d, dizziness. Expresses some concern for weakness, but believes she can get around and care for herself at home. Son and DIL may be moving in w her. Review of Systems 2 Review of Systems: As per HPI. Physical Exam 2 Physical Exam: Gen: NAD, extremely cold w/o several warm blankets HEENT: NCAT, PERRL CV: irregular rhythm, elevated rate, no m/r/g Resp: CTAB, symmetrical chest rise, breathing non-labored, no cough Abd: Soft, NT/ND, +BS Skin: Warm, dry, pink, no rashes or lesions Neuro: AOx3, CN II-XII grossly intact Results & Data Results & Data Vital Signs (Past 12 Hours) Vital Signs Temp Pulse Resp BP Pulse Ox O2 Del Method 07/11/24 07:46 36.6 C 96 H 19 125/74 98 Room Air 07/11/24 03:19 37.0 C 78 18 125/74 96 Room Air 07/11/24 00:48 85 Laboratory Results 07/11/24 06:58 07/11/24 06:58
[2024-07-11] MEDS: dilTIAZem HCL 30 MG TAB PO ONE (11:20)
[2024-07-11 16:44] VITALS: PULSE 97; TEMP 97.9; O2SAT 97
[2024-07-11] MEDS ORDERED: dilTIAZem HCl 60 MG TAB PO SCH (17:00)
--- NOTE | 2024-07-11 17:21 | Billing Data ---
Date of Service July 11, 2024 Coding Level of Care Code 96882 IN/OBS DISCH 30 MIN/LESS
[2024-07-11 17:39] VITALS: BP 140/78
--- NOTE | 2024-07-19 07:10 | Coding Query ---
To promote full compliance with coding requirements relating to patient care, provider participation is requested in all cases of hims coder uncertainty. Please assist us with the question(s) below: Coding Question(s): The diagnosis(es) below was documented in the ER by Dr. Nelson then subsequently fell off all further documentation. Please indicate if it is still a possible diagnosis or ruled out. Physician's Response(s): GASTROENTERITIS DUE TO COVID 19 VIRUS ( x ) Diagnosed and POA ( ) Diagnosed and not POA ( ) Ruled out ( ) Other (please specify) MTDD
== END 2024-07-11 17:39 | disposition home or self-care (01) | DRG 178 ==
LOC: ED 10:12 → EDINP 12:43 → SUATTDRO 12:43 → 2E 15:16

== ENCOUNTER 2024-09-09 15:47 | Inpatient (IN) ==
[2024-09-09] MEDS: dilTIAZem HCl 5 MG/ML 5 ML VIAL IV STA ×2 (16:02→16:56)
[2024-09-09 16:07] LABS: Basophils # (auto) 0.04 K/uL (0.00-0.20); Basophils % (auto) 0.2 %; Eosinophils # (auto) 0.01 K/uL (0.00-0.50); Eosinophils % (auto) 0.1 %; Hematocrit (blood only) 38.9 % (37.0-47.0); Hemoglobin 12.5 g/dl (12.0-16.0); Immature Granulocytes # (auto) 0.11 K/uL (0.01-0.20); Immature Granulocytes % (auto) 0.7 %; Lymphocytes # (auto) 1.11 K/uL (1.20-3.40); Lymphocytes % (auto) 6.9 %; Mean Corpuscular Hemoglobin 25.2 pg (25.0-34.0); Mean Corpuscular Hgb Conc 32.1 g/dL (32.0-36.0); Mean Corpuscular Volume 78.4 fL (80.0-100.0); Mean Platelet Volume 9.7 fL (9.4-12.4); Monocytes # (auto) 1.05 K/uL (0.11-0.59); Monocytes % (auto) 6.5 %; Neutrophils # (auto) 13.74 K/uL (1.40-6.50); Neutrophils % (auto) 85.6 %; Platelet Count 557 K/uL (130-400); RDW Coefficient of Variation 16.2 % (11.5-14.5); RDW Standard Deviation 45.8 fL (36.4-46.3); Red Blood Count 4.96 M/uL (4.20-5.40); White Blood Count 16.06 K/ul (4.8-10.8)
[2024-09-09 16:23] LABS: Albumin Globulin Ratio 1.4 (0.9-2); Albumin Level 4.4 gm/dl (3.4-5.0); Bilirubin,Total 0.4 mg/dl (0.2-1.0); Creatinine Clr Calc Pharmacy 38.1 ml/min; Globulin 3.2 gm/dl (2.5-4.0); Potassium 4.6 mmol/L (3.5-5.1); Total Protein 7.6 gm/dl (6.0-8.3)
--- NOTE | 2024-09-09 16:23 | XRay Report ---
EXAM:Radiograph of the Chest 1 View INDICATION: Chest pain. TECHNIQUE: Frontal view of the chest. COMPARISON:07/08/2024 FINDINGS: Lungs and pleural spaces: Increase very small bilateral pleural effusions. No pneumothorax. Stable airway thickening with slight increase left basilar airspace disease. Heart: Stable prominent cardiac shadow. Mediastinum: Normal contour. Bones/joints: No fracture, erosion or dislocation. Soft tissues: No abnormality noted. No radiopaque foreign body noted. Upper abdomen: No abnormality noted. IMPRESSION: Slight increased very small bilateral pleural effusions and chronic bronchitis with new mild left basilar atelectasis or pneumonia. ACT 112: Negative or not required by law. Electronically signed by Lucy Edwards 09-09-2024 4:23 PM
[2024-09-09 16:30] LABS: Troponin I High Sensitivity 7.4 pg/ml (0-14)
[2024-09-09 16:32] LABS: INR 2.7 (0.9-1.1); Partial Thromboplastin Ratio 1.3; Partial Thromboplastin Time 34 Seconds (21-31); Prothrombin Time 26.6 Seconds (9.0-12.0)
--- NOTE | 2024-09-09 16:33 | Emergency Department Note ---
Impression & Plan Atrial fibrillation with rapid ventricular response, Fluid overload, Anticoagulation goal of INR 2 to 3 ED Provider Note Provider: Geovanni Nuñez MD CHIEF COMPLAINT: Irregular heartbeat HISTORY OF PRESENT ILLNESS: Patient is a 79-year-old female past medical history of A-fib/atrial flutter on Coumadin in addition to hypothyroidism, breast cancer, CKD, and lower extremity venous insufficiency presenting here today referred from the outpatient office. Seen here several days ago in the emergency department for some pain in the left leg. Was placed on prednisone after negative workup and she states this has improved her pain significantly. Thinks it may have been inflammatory around the knee but this is doing better. Has some chronic swelling to lower extremities with maybe a little bit worse than 7 trouble having some of her shoes fit. Has had a little bit of dyspnea on exertion. No shortness of breath at rest or chest pain. May have an occasional palpitations but nothing sustained. Patient states compliance with her home medications. Was at the office for follow-up from recent ER visit and noted to have a rapid heart rate and sent here for further evaluation. Does follow with cardiology and is to see them in several days. PAST MEDICAL HISTORY: As noted above MEDICATIONS: Reviewed home medications currently finishing a prednisone course SOCIAL HISTORY: Lives at home with PHYSICAL EXAM: GENERAL: alert and oriented in no acute distress on stretcher Head: normocephalic and atraumatic EYES: No injection, discharge or icterus. NECK: Trachea midline. ENT: Mucous membranes pink and moist. LUNGS: Airway patent. No retractions. Breath sounds clear with some crackles in the bases HEART: Irregular tachycardic rate and rhythm. No chest wall tenderness ABDOMEN: Soft and non-tender, without guarding or rebound. SKIN: Acyanotic, warm, dry, without rashes EXTREMITIES: With 2+ lower extremity edema. NEUROLOGICAL: No focal deficits. No aphasia. No facial droop or slurred speech. EK bpm atrial flutter without acute ST segment elevation or depression. QTc 378. CONTINUOUS CARDIAC MONITORING: was ordered and showed a heart rate of 80s to 160s bpm in atrial flutter/atrial fibs Patient's laboratory studies and imaging reviewed. Differential includes Premature contractions, electrolyte abnormality, cardiac dysrhythmia, thyroid dysfunction, pulmonary embolism, infection, gastrointestinal, as well as other pathologies. IMPRESSION/MEDICAL DECISION MAKING: Patient history of A-fib a flutter. On Coumadin and INR therapeutic today. Recently here and on prednisone for leg pain and that has improved this. Has some increasing swelling lower extremities. Maybe a little bit of dyspnea exertion. Not hypoxic at rest. Has been taking her medications. INR therapeutic today on check. No significant electrolyte abnormality. No troponin elevation. BNP is elevated. Evidence of some fluid on the lungs. Negative respiratory viral panel today. No 10 mg of IV diltiazem did have some control. Within an hour heart rate began to escalate again from under 100 to greater than 130 bpm. Given IV metoprolol with little effect and given additional IV diltiazem. Seems to be on very large doses of oral diltiazem and metoprolol at this point. Question if her poor rate control is contributing to fluid overload in the lower extremities and not her lungs. Given some IV Lasix for diuresis. Given additional 10 mg of IV diltiazem. Diltiazem drip started. White count of 16 believes reactive to the steroids and doubt infection otherwise. Patient again does not seem to be having ischemic insult but if she has continued RVR do feel that she will have worsened fluid status and begin develop cardiomyopathy. Discussed staying for further rate control optimization. Does not have drip was ordered. Hospitalist contacted. DIAGNOSIS: A-fib/a flutter with RVR, fluid overload DISPOSITION: Hospitalist will evaluate Patient was agreeable with this plan. Critical Care I have personally spent 37 minutes of critical care time in the direct management of this patient. This includes bedside care, interpretation of diagnostic studies, and testing, discussion with consultants, patient, and other required patient management activities. These 37 minutes is in excess of all separately billable procedures. Past Med/Surg History Problem List (Updated 09/09/24 @ 22:05 by Geovanni Nuñez M.D.) Fluid overload (Acute) Atrial fibrillation with rapid ventricular response (Acute) Leukocytosis Bilateral lower extremity edema Anticoagulation goal of INR 2 to 3 (Acute) Osteoarthritis (Acute) Atrial fibrillation with RVR (Acute) Moderate pulmonary hypertension Prediabetes History of mastectomy Arthritis of shoulder Scar conditions and fibrosis of skin Atrial flutter (Acute) Hypothyroidism (Acute) Insomnia (Acute) Paroxysmal atrial fibrillation (Acute) Pre-diabetes (Acute) Uterine prolapse (Acute) H/O foot surgery Osteoarthritis of right shoulder History of breast cancer Chronic kidney disease (CKD), stage III (moderate) (Acute) Stable per patient; follows with nephro PRN Venous insufficiency of both lower extremities Hyperlipidemia Hypertension Medical History Gastroenteritis due to COVID-19 virus Generalized weakness COVID-19 Elevated INR History of left breast cancer Hypophosphatemia Hypercalcemia Foot pain, bilateral Hx of Clostridium difficile infection 2006 Hypothyroidism Paroxysmal atrial fibrillation Dx/ed 2012 with episodes of RVR, burden stable per [facility]; F/U DR. 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 Dr. Finn *LEFT LIMB RESTRICTION History of bilateral mastectomy H/O breast biopsy MULTIPLE H/O colonoscopy History of arthroscopy of left shoulder History of bunionectomy R&L Family History Father Congestive heart failure Heart disease Myocardial infarction Mother Thyroid disorder Sister Liver cancer Thyroid cancer Alzheimer disease Breast cancer Daughter Atrial fibrillation Kidney disease End stage, on dialysis Brother Family history of colon cancer Cancer Other Family history of pancreatic cancer Denies family history of Ovarian cancer Prostate cancer Diabetes Lung cancer Colorectal cancer Stroke Social History Smoking Status: Never smoker Second Hand Exposure: No; Do You Dip or Chew Tobacco: No; Hx Alcohol Use: No Hx Substance Use: No Preferred Language: Nepali Communication Ability: Effective Visual Impairment: Partially Limited Hearing Ability: Normal Tablet Machine Operator Required: No Beliefs That Will Affect Care: None marital status: / Current Living Situation: Family Current Living Situation Comment: lives with daughter current occupational status: retired How many Children do You have: 4 Other Information That Helps Us Care for You: No Feels Safe at Home: Yes Safety Concerns: Feels Safe At This Time Childhood Exposure to Second-Hand Smoke: No Diet: regular caffeine: No during the past year weight has: remained stable Dental Care, Regularly: Yes Physical Activity Frequency: 1-2 Times per Week Seatbelt Use: always Sunscreen Use: Yes Assistive Devices: Cane, Glasses and Walker Allergies Allergies Allergy/AdvReac Type Severity Reaction Status Date / Time ciprofloxacin Allergy Intermediate ITCHY Verified 09/09/24 14:30 metronidazole Allergy Intermediate ITCHY Verified 09/09/24 14:30 amoxicillin [From Augmentin] AdvReac Severe Gastrointestinal Unverified 09/09/24 14:30 Upset clavulanic acid AdvReac Severe Gastrointestinal Unverified 09/09/24 14:30 [From Augmentin] Upset cheese AdvReac Intermediate "real Verified 09/09/24 14:30 cheese" - n/v Home Meds Home Medications Medication Instructions Recorded Confirmed calcium 600 mg (as 1 tab PO BID 03/06/19 09/09/24 carbonate)-vitamin D3 20 mcg (800 unit) tablet docusate sodium 100 mg capsule See Rx Instructions .Route .COMPLEX 05/13/19 09/09/24 anastrozole 1 mg tablet 1 mg PO QAM 09/13/22 09/09/24 ascorbic acid (vitamin C) 500 mg 500 mg PO QAM 04/25/23 09/09/24 tablet (Vitamin C) cyanocobalamin (vitamin B-12) 1,000 mcg PO DAILY 07/08/24 09/09/24 1,000 mcg tablet (Vitamin B-12) omega 6-dvd-erp-fish oil 1,000 mg 1 cap PO BID 07/08/24 09/09/24 (120 mg-180 mg) capsule (Fish Oil) warfarin 2 mg tablet 2 mg PO DIRECTED 09/09/24 09/09/24 Previous Rx's Medication Instructions Recorded Mattress (Air or other) #1 ea 07/12/21 compress.stocking,knee,reg,med #2 ea 07/12/21 metoprolol tartrate 100 mg tablet 150 mg (1.5 x 100 mg) PO BID #270 12/08/23 tabs atorvastatin 20 mg tablet 20 mg PO QAM #90 tabs 02/28/24 levothyroxine 50 mcg tablet 50 mcg PO QAM #90 tabs 02/28/24 losartan 100 mg tablet 100 mg PO QPM #90 tabs 02/28/24 diltiazem HCl 360 mg 360 mg PO DAILY #90 caps 08/14/24 capsule,extended release 24 hr prednisone 20 mg tablet 20 mg PO BID #15 tabs 09/05/24 Results & Data (ED) Vital Signs Vital Signs - 24 hr 09/09/24 15:52 09/09/24 15:52 09/09/24 15:52 Temperature 36.8 C Temperature Source Oral Pulse Rate 143 H Pulse Rate [Apical] 130 H Pulse Rate from SpO2 Sensor Respiratory Rate 20 19 Respiratory Depth Normal Normal Respiratory Pattern Regular Blood Pressure 167/97 H Blood Pressure [Left Arm] 167/97 H Blood Pressure Mean 120 Blood Pressure Mean [Left Arm] 120 Pulse Oximetry 93 93 93 Oxygen Delivery Method Room Air Room Air Room Air Sepsis Recent Fever Within 48 Hours No Sepsis New/Unexplained Change in Mental Status No Sepsis Action Taken by Nursing No Action Required 09/09/24 15:57 09/09/24 16:00 09/09/24 16:00 Temperature Temperature Source Pulse Rate 160 H 102 H Pulse Rate [Apical] Pulse Rate from SpO2 Sensor Respiratory Rate 18 Respiratory Depth Respiratory Pattern Blood Pressure 142/111 H 127/76 Blood Pressure [Left Arm] Blood Pressure Mean 126 93 Blood Pressure Mean [Left Arm] Pulse Oximetry 93 Oxygen Delivery Method Sepsis Recent Fever Within 48 Hours Sepsis New/Unexplained Change in Mental Status Sepsis Action Taken by Nursing 09/09/24 16:15 09/09/24 16:15 09/09/24 16:21 Temperature Temperature Source Pulse Rate 91 H 107 H Pulse Rate [Apical] Pulse Rate from SpO2 Sensor 87 88 Respiratory Rate 25 H 15 Respiratory Depth Respiratory Pattern Blood Pressure 138/81 Blood Pressure [Left Arm] Blood Pressure Mean 101 Blood Pressure Mean [Left Arm] Pulse Oximetry 94 94 Oxygen Delivery Method Sepsis Recent Fever Within 48 Hours Sepsis New/Unexplained Change in Mental Status Sepsis Action Taken by Nursing 09/09/24 16:24 09/09/24 16:31 09/09/24 16:39 Temperature Temperature Source Pulse Rate 131 H 132 H Pulse Rate [Apical] Pulse Rate from SpO2 Sensor 126 H 136 H Respiratory Rate 22 23 Respiratory Depth Respiratory Pattern Blood Pressure 125/57 L Blood Pressure [Left Arm] Blood Pressure Mean 89 Blood Pressure Mean [Left Arm] Pulse Oximetry 93 95 Oxygen Delivery Method Sepsis Recent Fever Within 48 Hours Sepsis New/Unexplained Change in Mental Status Sepsis Action Taken by Nursing 09/09/24 16:42 09/09/24 16:44 09/09/24 16:47 Temperature Temperature Source Pulse Rate 158 H 161 H Pulse Rate [Apical] Pulse Rate from SpO2 Sensor 144 H Respiratory Rate 25 H Respiratory Depth Respiratory Pattern Blood Pressure 114/95 130/107 H 114/95 Blood Pressure [Left Arm] Blood Pressure Mean 101 97 Blood Pressure Mean [Left Arm] Pulse Oximetry 93 Oxygen Delivery Method Sepsis Recent Fever Within 48 Hours Sepsis New/Unexplained Change in Mental Status Sepsis Action Taken by Nursing 09/09/24 16:57 09/09/24 17:12 09/09/24 17:15 Temperature Temperature Source Pulse Rate 159 H 95 H Pulse Rate [Apical] Pulse Rate from SpO2 Sensor 86 Respiratory Rate 15 14 Respiratory Depth Respiratory Pattern Blood Pressure 135/87 Blood Pressure [Left Arm] Blood Pressure Mean 100 Blood Pressure Mean [Left Arm] Pulse Oximetry 95 Oxygen Delivery Method Sepsis Recent Fever Within 48 Hours Sepsis New/Unexplained Change in Mental Status Sepsis Action Taken by Nursing 09/09/24 17:27 09/09/24 17:30 09/09/24 17:31 Temperature Temperature Source Pulse Rate 87 91 H 94 H Pulse Rate [Apical] Pulse Rate from SpO2 Sensor 91 H 83 Respiratory Rate 21 21 Respiratory Depth Respiratory Pattern Blood Pressure 164/75 H Blood Pressure [Left Arm] Blood Pressure Mean Blood Pressure Mean [Left Arm] Pulse Oximetry 95 95 Oxygen Delivery Method Sepsis Recent Fever Within 48 Hours Sepsis New/Unexplained Change in Mental Status Sepsis Action Taken by Nursing 09/09/24 17:31 09/09/24 17:42 09/09/24 17:45 Temperature Temperature Source Pulse Rate 98 H 97 H Pulse Rate [Apical] Pulse Rate from SpO2 Sensor 87 Respiratory Rate 18 27 H Respiratory Depth Respiratory Pattern Blood Pressure 164/75 H Blood Pressure [Left Arm] Blood Pressure Mean 108 Blood Pressure Mean [Left Arm] Pulse Oximetry 95 Oxygen Delivery Method Sepsis Recent Fever Within 48 Hours Sepsis New/Unexplained Change in Mental Status Sepsis Action Taken by Nursing 09/09/24 17:46 09/09/24 17:51 09/09/24 18:00 Temperature Temperature Source Pulse Rate 98 H Pulse Rate [Apical] Pulse Rate from SpO2 Sensor 91 H Respiratory Rate 29 H Respiratory Depth Respiratory Pattern Blood Pressure 136/83 126/85 Blood Pressure [Left Arm] Blood Pressure Mean 95 97 Blood Pressure Mean [Left Arm] Pulse Oximetry 95 Oxygen Delivery Method Sepsis Recent Fever Within 48 Hours Sepsis New/Unexplained Change in Mental Status Sepsis Action Taken by Nursing 09/09/24 18:00 09/09/24 18:15 09/09/24 18:16 Temperature Temperature Source Pulse Rate 90 92 H Pulse Rate [Apical] Pulse Rate from SpO2 Sensor 74 84 Respiratory Rate 23 29 H Respiratory Depth Respiratory Pattern Blood Pressure 116/78 Blood Pressure [Left Arm] Blood Pressure Mean 82 Blood Pressure Mean [Left Arm] Pulse Oximetry 93 95 Oxygen Delivery Method Sepsis Recent Fever Within 48 Hours Sepsis New/Unexplained Change in Mental Status Sepsis Action Taken by Nursing 09/09/24 18:24 09/09/24 18:30 09/09/24 18:39 Temperature Temperature Source Pulse Rate 117 H 88 Pulse Rate [Apical] Pulse Rate from SpO2 Sensor 90 93 H Respiratory Rate 20 20 Respiratory Depth Respiratory Pattern Blood Pressure 162/93 H Blood Pressure [Left Arm] Blood Pressure Mean 127 Blood Pressure Mean [Left Arm] Pulse Oximetry 97 97 Oxygen Delivery Method Sepsis Recent Fever Within 48 Hours Sepsis New/Unexplained Change in Mental Status Sepsis Action Taken by Nursing 09/09/24 18:42 09/09/24 18:45 09/09/24 18:46 Temperature Temperature Source Pulse Rate 108 H 106 H Pulse Rate [Apical] Pulse Rate from SpO2 Sensor 94 H Respiratory Rate 30 H 18 Respiratory Depth Respiratory Pattern Blood Pressure 158/106 H Blood Pressure [Left Arm] Blood Pressure Mean 112 Blood Pressure Mean [Left Arm] Pulse Oximetry 96 Oxygen Delivery Method Sepsis Recent Fever Within 48 Hours Sepsis New/Unexplained Change in Mental Status Sepsis Action Taken by Nursing 09/09/24 18:57 09/09/24 19:00 09/09/24 19:01 Temperature Temperature Source Pulse Rate 155 H Pulse Rate [Apical] 117 H Pulse Rate from SpO2 Sensor 84 Respiratory Rate 32 H 20 Respiratory Depth Normal Respiratory Pattern Blood Pressure 168/101 H Blood Pressure [Left Arm] 168/101 H Blood Pressure Mean 123 Blood Pressure Mean [Left Arm] 123 Pulse Oximetry 95 95 Oxygen Delivery Method Room Air Sepsis Recent Fever Within 48 Hours Sepsis New/Unexplained Change in Mental Status Sepsis Action Taken by Nursing Laboratory Data 09/09/24 15:57 09/09/24 15:57 Lab Results 09/09/24 09/09/24 09/09/24 Range/Units 15:57 16:03 17:27 WBC 16.06 H (4.8-10.8) K/ul RBC 4.96 (4.20-5.40) M/uL Hgb 12.5 (12.0-16.0) g/dl Hct 38.9 (37.0-47.0) % MCV 78.4 L (80.0-100.0) fL MCH 25.2 (25.0-34.0) pg MCHC 32.1 (32.0-36.0) g/dL RDW Std Deviation 45.8 (36.4-46.3) fL RDW Coeff of Jenniffer 16.2 H (11.5-14.5) % Plt Count 557 H (130-400) K/uL MPV 9.7 (9.4-12.4) fL Immature Gran % (Auto) 0.7 % Neut % (Auto) 85.6 % Lymph % (Auto) 6.9 % [place] % (Auto) 6.5 % Eos % (Auto) 0.1 % Baso % (Auto) 0.2 % Neut # (Auto) 13.74 H (1.40-6.50) K/uL Lymph # (Auto) 1.11 L (1.20-3.40) K/uL [place] # (Auto) 1.05 H (0.11-0.59) K/uL Eos # (Auto) 0.01 (0.00-0.50) K/uL Baso # (Auto) 0.04 (0.00-0.20) K/uL Immature Gran # (Auto) 0.11 (0.01-0.20) K/uL PT 26.6 H (9.0-12.0) Seconds INR 2.7 H (0.9-1.1) APTT 34 H (21-31) Seconds PTT Ratio 1.3 Sodium 136 (136-145) mmol/L Potassium 4.6 (3.5-5.1) mmol/L Chloride 103 (98-107) mmol/L Carbon Dioxide 24 (21-32) mmol/L Anion Gap 9 (3-11) BUN 31 H (6-23) mg/dl Creatinine 1.00 (0.6-1.2) mg/dl Est Cr Clr Drug Dosing 38.1 ml/min eGFR 56.60 BUN/Creatinine Ratio 31.0 H (10-20) Glucose 170 H (70-99(Fasting)) mg/dl Calcium 10.0 (8.6-10.3) mg/dl Magnesium 2.0 (1.7-2.4) mg/dl Total Bilirubin 0.4 (0.2-1.0) mg/dl AST 24 (13-39) U/L ALT 29 (7-52) U/L Alkaline Phosphatase 89 (34-104) U/L Troponin I High Sens 7.4 (0-14) pg/ml B-Natriuretic Peptide 729 H (0-100) pg/ml Total Protein 7.6 (6.0-8.3) gm/dl Albumin 4.4 (3.4-5.0) gm/dl Globulin 3.2 (2.5-4.0) gm/dl Albumin/Globulin Ratio 1.4 (0.9-2) TSH 2.188 (0.300-4.500) uIu/ml Urine Color Yellow Urine Appearance Clear (Clear) Urine pH 7.0 (4.5-7.5) Ur Specific [place] 1.015 (1.000-1.030) Urine Protein Negative (Negative) Urine Glucose (UA) Negative (Negative) Urine Ketones Negative (Negative) Urine Blood Trace-intact H (Negative) Urine Nitrite Negative (Negative) Urine Bilirubin Negative (Negative) Urine Urobilinogen Negative (Negative) Ur Leukocyte Esterase Negative (Negative) Urine RBC 0-2 (0-2) /hpf Urine WBC 0-5 (0-5) /hpf Ur Epithelial Cells 0-2 (0-2) /hpf Urine Bacteria None Seen (None Seen) Adenovirus (PCR) Not Detected (NotDetected) B. pertussis DNA (PCR) Not Detected (NotDetected) B.parapertussis DNA PCR Not Detected (NotDetected) C. pneumoniae DNA (PCR) Not Detected (NotDetected) Coronavirus OC43 (PCR) Not Detected (NotDetected) Coronavirus HKU1 (PCR) Not Detected (NotDetected) Coronavirus 229E (PCR) Not Detected (NotDetected) SARS-CoV-2 (PCR) Not Detected (NotDetected) Coronavirus NL63 (PCR) Not Detected (NotDetected) Human Metapneumovir PCR Not Detected (NotDetected) Influenza Type A (PCR) Not Detected (NotDetected) Influenza Type B (PCR) Not Detected (NotDetected) M. pneumoniae (PCR) Not Detected (NotDetected) Parainfluenza 1 (PCR) Not Detected (NotDetected) Parainfluenza 2 (PCR) Not Detected (NotDetected) Parainfluenza 3 (PCR) Not Detected (NotDetected) Parainfluenza 4 (PCR) Not Detected (NotDetected) RSV (PCR) Not Detected (NotDetected) Entero/Rhino (PCR) Not Detected (NotDetected) Administered Medications Diltiazem HCl 125 mg/ Dextrose 125 mls @ 10 mls/hr IV .[id number] [facility]; Protocol Stop: 10/09/24 16:59 Last Titration: 09/09/24 20:24 Dose: 0 mg/hr, 0 mls/hr Documented By: EARL Co-signed By: INGRID Titration: 09/09/24 18:29 Dose: 10 mg/hr, 10 mls/hr Documented By: EARL Co-signed By: SHARON Admin: 09/09/24 17:27 Dose: 5 mg/hr, 5 mls/hr Documented By: HS Co-signed By: SHARON Losartan Potassium (Losartan Potassium 50 Mg Tab) 100 mg PO QPM [facility] Stop: 10/09/24 20:59 Last Admin: 09/09/24 21:23 Dose: 100 mg Documented By: RAJNI Metoprolol Tartrate (Metoprolol Tartrate 50 Mg Tab) 150 mg PO BID [facility] Stop: 10/09/24 20:59 Last Admin: 09/09/24 21:24 Dose: 150 mg Documented By: RAJNI Warfarin Sodium (Warfarin Sod 2 Mg Tab) 2 mg PO [id number] [facility] Stop: 10/09/24 20:52 Last Admin: 09/09/24 21:23 Dose: 2 mg Documented By: RAJNI Discontinued Medications Diltiazem HCl (Diltiazem Hcl 5 Mg/Ml 5 Ml Vial) 10 mg IV NOW STA Stop: 09/09/24 15:58 Last Admin: 09/09/24 16:02 Dose: 10 mg Documented By: EARL Co-signed By: ARACELI Diltiazem HCl (Diltiazem Hcl 5 Mg/Ml 5 Ml Vial) 10 mg IV NOW STA Stop: 09/09/24 16:54 Last Admin: 09/09/24 16:56 Dose: 10 mg Documented By: ARACELI Co-signed By: MAURIZIO Furosemide (Furosemide Inj 20 Mg/2 Ml Vial) 20 mg IV ONE ONE Stop: 09/09/24 16:57 Last Admin: 09/09/24 17:00 Dose: 20 mg Documented By: ARACELI Metoprolol Tartrate (Metoprolol Tartrate 1 Mg/Ml Vial) 5 mg IV NOW STA Stop: 09/09/24 16:38 Last Admin: 09/09/24 16:44 Dose: 5 mg Documented By: EARL Miscellaneous (Stat Iv Infusion Titration Per Protocol) 1 each N/A NOW STA Stop: 09/09/24 16:58 Last Admin: 09/09/24 17:31 Dose: Not Given Documented By: EARL Imaging Data Radiologist's Impression: Chest X-Ray 09/09/24 15:55 EXAM:Radiograph of the Chest 1 View INDICATION: Chest pain. TECHNIQUE: Frontal view of the chest. COMPARISON:07/08/2024 FINDINGS: Lungs and pleural spaces: Increase very small bilateral pleural effusions. No pneumothorax. Stable airway thickening with slight increase left basilar airspace disease. Heart: Stable prominent cardiac shadow. Mediastinum: Normal contour. Bones/joints: No fracture, erosion or dislocation. Soft tissues: No abnormality noted. No radiopaque foreign body noted. Upper abdomen: No abnormality noted. IMPRESSION: Slight increased very small bilateral pleural effusions and chronic bronchitis with new mild left basilar atelectasis or pneumonia. ACT 112: Negative or not required by law. Electronically signed by Lucy Edwards 09-09-2024 4:23 PM Discharge Plan Visit Data Chief Complaint: Cardiac Assessment Stated Complaint: CARDIAC ASSESSMENT ED Provider: Geovanni Nuñez Discharge Problem: Atrial fibrillation with rapid ventricular response, Fluid overload, Anticoagulation goal of INR 2 to 3 Patient Disposition: Being Evaluated by Hospitalist Discharge Instructions Interventions: ED Discharge Assessment Last Done: 09/09/24 20:27
[2024-09-09 16:38] LABS: Thyroid Stimulating Hormone 2.188 uIu/ml (0.300-4.500)
[2024-09-09] MEDS: METOPROLOL TARTRATE 1 MG/ML VIAL IV STA (16:44)
[2024-09-09] MEDS: FUROSEMIDE INJ 20 MG/2 ML VIAL IV ONE (17:00)
[2024-09-09 17:09] LABS: Adenovirus PCR Not Detected (NotDetected); Bordetella parapertussis PCR Not Detected (NotDetected); Bordetella pertussis PCR Not Detected (NotDetected); Chlamydia pneumoniae PCR Not Detected (NotDetected); Coronavirus 229E PCR Not Detected (NotDetected); Coronavirus CoV-2 (COVID19)PCR Not Detected (NotDetected); Coronavirus HKU1 PCR Not Detected (NotDetected); Coronavirus NL63 PCR Not Detected (NotDetected); Coronavirus OC43PCR Not Detected (NotDetected); Human Metapneumovirus PCR Not Detected (NotDetected); Influenza A PCR Not Detected (NotDetected); Influenza B PCR Not Detected (NotDetected); Mycoplasma pneumoniae PCR Not Detected (NotDetected); Parainfluenza Virus 1 PCR Not Detected (NotDetected); Parainfluenza Virus 2 PCR Not Detected (NotDetected); Parainfluenza Virus 3 PCR Not Detected (NotDetected); Parainfluenza Virus 4 PCR Not Detected (NotDetected); Respiratory Syncytial VirusPCR Not Detected (NotDetected); Rhinovirus/Enterovirus PCR Not Detected (NotDetected)
--- NOTE | 2024-09-09 17:09 | Electrocardiogram Report ---
Test Reason : Blood Pressure : */* mmHG Vent. Rate : 152 BPM Atrial Rate : 172 BPM P-R Int : 112 ms QRS Dur : 96 ms QT Int : 238 ms P-R-T Axes : 88 50 38 degrees QTcB Int : 378 ms Atrial flutter with 2:1 A-V conduction Abnormal ECG When compared with ECG of 05-Sep-2024 10:06, Atrial flutter has replaced Atrial fibrillation HR has increased by 22 bpm Confirmed by Sav Luna ([id number]) on 09/09/2024 5:09:26 PM Referred By: Confirmed By: Sav Luna
[2024-09-09] MEDS: dilTIAZem HCL 125 MG in DEXTROSE 5% 100 ML IV SCH (17:27)
[2024-09-09] MEDS: STAT IV Infusion **Titration per Protocol STA (17:31)
[2024-09-09 18:03] LABS: Appearance Urine Clear (Clear); Bilirubin Urine Negative (Negative); Blood Urine Trace-intact (Negative); Color Urine Yellow; Glucose Urine UA Negative (Negative); Ketones Urine Negative (Negative); Leukocyte Esterase Urine Negative (Negative); Nitrite Urine Negative (Negative); Protein Urine Negative (Negative); Specific Gravity Urine 1.015 (1.000-1.030); Urobilinogen Urine Negative (Negative)
--- NOTE | 2024-09-09 18:08 | History & Physical Report ---
Date of Service September 09, 2024 Assessment & Plan (1) Atrial fibrillation with RVR: Plan: Previous history of A-fib, since 2012 - EKG on admission showed a flutter with 2 1 AV conduction, replaced previous underlying A-fib, rate (atrial) 172, (ventricular) 152 - Telemetry showing poor rate control, ranging 80s-110s - Echo 05/2024- normal LV size and systolic function, EF 55 to 60%, no LVH, no regional wall abnormalities, sclerotic AV without significant stenosis, mild AR, mild MR, moderate TR, moderate pulmonary hypertension, RVSP 50 mmHg, sinus rhythm and sinus bradycardia - Repeat echo pending - TSH 2.188 - Mg 2 - Anticoagulated with warfarin - Rate controlled with metoprolol 150 mg twice daily and diltiazem 360 mg daily, no medication for rhythm control - continue metoprolol, restart diltiazem morning 09/10 - Continue diltiazem drip - Continue to monitor on telemetry - Cardiology consulted Appreciate cardiology input and recs (2) Bilateral lower extremity edema: Plan: No documented h/o HF, has history of moderate pulmonary edema; presenting with Afib RVR and bilateral lower extremity edema, 2+ - Current weight 71.9kg; Daily weights standing - I+Os - Echo from 05/2024 normal LV size and systolic function, EF 55 to 60%, no LVH, no regional wall abnormalities, sclerotic AV without significant stenosis, mild AR, mild MR, moderate TR, moderate pulmonary hypertension, RVSP 50 mmHg, sinus rhythm and sinus bradycardia - BNP 729 - CXR slight increase very small bilateral pleural effusions and chronic bronchitis with new mild left basilar atelectasis or pneumonia - CBC with leukocytosis, neutrophil predominant - CMP grossly WNL - Troponin 7.4 - On metoprolol tartrate 150 mg twice daily - No diuretic at home- start Lasix 40 mg IV daily starting 09/10 - SCDs, promote leg elevation and frequent movement - CBC am, BMP am (3) Leukocytosis: Plan: Leukocytosis noted on admission, WBC 16.06 - Has been on prednisone 20mg BID - ? PNA on CXR; no symptoms of cough, fever, or SOB - No urinary symptoms, UA w/o signs of infection - No open wounds noted - No GI complaints or labs suggestive of etiology - Defer antibiotics at this time until source clear - CBC am (4) Anticoagulation goal of INR 2 to 3: Plan: Per lon, INR 2-3 goal; Anticoagulated on Warfarin for Afib - INR WNL on admission at 2.7 - No active signs of bleeding - PT/INR AM Plan History of breast cancer- S/p L mastectomy, prophylactic R mastectomy; Anastrozole HLD- atorvastatin HTN- losartan Hypothyroidism- levothyroxine Dispo: Admit Diet: Low Na, NO CHEESE VTE prophylaxis: Warfarin Code: Full Admission and Anticipated Discharge Date Admission Date: 09/09/2024 History of Present Illness Chief Complaint: Tachycardia Primary Care Provider: Sabine Trejo DO 79-year-old female presenting for tachycardia, rate 160s at outpatient office. ED course: CBC WBC 16.06, neutrophil predominant 13.74, MCV 78.4, platelets 557; PT/INR 26.6/2.7, APTT 34; CMP BUN 31, BUN/creatinine ratio 31, glucose 170; BNP 729; troponin 7.4; magnesium 2; TSH 2.188; UA pending; BioFire negative; CXR slightly increased very small bilateral pleural effusions and chronic bronchitis with new mild left basilar atelectasis or pneumonia; EKG a flutter with 2:1 AV conduction, atrial rate 172, ventricular rate 152. Provided with metoprolol tartrate 5 mg, furosemide 20 mg, diltiazem 20 mg total, and on diltiazem drip in ED. Patient is a very pleasant 79-year-old female PMHx A-fib with RVR on warfarin, hypothyroidism, CKD stage III, history of BCA, HLD, and HTN presenting for tachycardia. Was at outpatient appointment and noted to have a heart rate in the 160s, EKG revealing A-fib with RVR. Patient recently evaluated in ED 09/05 for chief complaint of LLE pain, was tachycardic with rate in 120s at that time. States that she ws encouraged to come to ED for these symptoms. Denying chest pain, shortness of breath, palpitations, abdominal pain, N/V/D/C, urinary symptoms, numbness/tingling, or fever. States that she has had episodes of a fast heart rate before. Took all a.m. medications. Please see Dr. Mariscal's attestation for adjustments/additions to treatment plan. Allergies Allergy/AdvReac Type Severity Reaction Status Date / Time ciprofloxacin Allergy Intermediate ITCHY Verified 09/09/24 14:30 metronidazole Allergy Intermediate ITCHY Verified 09/09/24 14:30 amoxicillin [From Augmentin] AdvReac Severe Gastrointestinal Unverified 09/09/24 14:30 Upset clavulanic acid AdvReac Severe Gastrointestinal Unverified 09/09/24 14:30 [From Augmentin] Upset cheese AdvReac Intermediate "real Verified 09/09/24 14:30 cheese" - n/v Home Medications Medication Instructions Recorded Confirmed Type calcium 600 mg (as 1 tab PO BID 03/06/19 09/09/24 History carbonate)-vitamin D3 20 mcg (800 unit) tablet docusate sodium 100 mg capsule See Rx Instructions .Route .COMPLEX 05/13/19 09/09/24 History Mattress (Air or other) #1 ea 07/12/21 09/09/24 Rx compress.stocking,knee,reg,med #2 ea 07/12/21 09/09/24 Rx anastrozole 1 mg tablet 1 mg PO QAM 09/13/22 09/09/24 History ascorbic acid (vitamin C) 500 mg 500 mg PO QAM 04/25/23 09/09/24 History tablet (Vitamin C) metoprolol tartrate 100 mg tablet 150 mg (1.5 x 100 mg) PO BID #270 12/08/23 09/09/24 Rx tabs atorvastatin 20 mg tablet 20 mg PO QAM #90 tabs 02/28/24 09/09/24 Rx levothyroxine 50 mcg tablet 50 mcg PO QAM #90 tabs 02/28/24 09/09/24 Rx losartan 100 mg tablet 100 mg PO QPM #90 tabs 02/28/24 09/09/24 Rx cyanocobalamin (vitamin B-12) 1,000 mcg PO DAILY 07/08/24 09/09/24 History 1,000 mcg tablet (Vitamin B-12) omega 2-hoy-mmj-fish oil 1,000 mg 1 cap PO BID 07/08/24 09/09/24 History (120 mg-180 mg) capsule (Fish Oil) diltiazem HCl 360 mg 360 mg PO DAILY #90 caps 08/14/24 09/09/24 Rx capsule,extended release 24 hr prednisone 20 mg tablet 20 mg PO BID #15 tabs 09/05/24 09/09/24 Rx warfarin 2 mg tablet 2 mg PO DIRECTED 09/09/24 09/09/24 History Past Med/Surg History Problem List (Updated 09/09/24 @ 19:03 by Jensen Argueta PA-C) Leukocytosis Bilateral lower extremity edema Anticoagulation goal of INR 2 to 3 Osteoarthritis (Acute) Atrial fibrillation with RVR (Acute) Moderate pulmonary hypertension Prediabetes History of mastectomy Arthritis of shoulder Scar conditions and fibrosis of skin Atrial flutter (Acute) Hypothyroidism (Acute) Insomnia (Acute) Paroxysmal atrial fibrillation (Acute) Pre-diabetes (Acute) Uterine prolapse (Acute) H/O foot surgery Osteoarthritis of right shoulder History of breast cancer Chronic kidney disease (CKD), stage III (moderate) (Acute) Stable per patient; follows with nephro PRN Venous insufficiency of both lower extremities Hyperlipidemia Hypertension Medical History Gastroenteritis due to COVID-19 virus Generalized weakness COVID-19 Elevated INR History of left breast cancer Hypophosphatemia Hypercalcemia Foot pain, bilateral Hx of Clostridium difficile infection 2006 Hypothyroidism Paroxysmal atrial fibrillation Dx/ed 2012 with episodes of RVR, burden stable per [facility]; F/U DR. 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 Dr. Finn *LEFT LIMB RESTRICTION History of bilateral mastectomy H/O breast biopsy MULTIPLE H/O colonoscopy History of arthroscopy of left shoulder History of bunionectomy R&L Family History Father Congestive heart failure Heart disease Myocardial infarction Mother Thyroid disorder Sister Liver cancer Thyroid cancer Alzheimer disease Breast cancer Daughter Atrial fibrillation Kidney disease End stage, on dialysis Brother Family history of colon cancer Cancer Other Family history of pancreatic cancer Denies family history of Ovarian cancer Prostate cancer Diabetes Lung cancer Colorectal cancer Stroke Social History Smoking Status: Never smoker Second Hand Exposure: No; Do You Dip or Chew Tobacco: No; Hx Alcohol Use: No Hx Substance Use: No Preferred Language: Kittitian Communication Ability: Effective Visual Impairment: Partially Limited Hearing Ability: Normal Air Turning Machine Feeder Required: No Beliefs That Will Affect Care: None marital status: / Current Living Situation: Family Current Living Situation Comment: DAUGHTER current occupational status: retired How many Children do You have: 4 Feels Safe at Home: Yes Childhood Exposure to Second-Hand Smoke: No Diet: regular caffeine: No during the past year weight has: remained stable Dental Care, Regularly: Yes Physical Activity Frequency: 1-2 Times per Week Seatbelt Use: always Sunscreen Use: Yes Assistive Devices: Cane Review of Systems Review of Systems: All systems reviewed & are unremarkable except as noted in Subjective Physical Exam Physical Exam: General: No acute distress Skin: Warm and dry Head: Normocephalic, atraumatic Eyes: PERRL, conjunctivae clear, sclera non-icteric ENT: External ear and ear canal without swelling; nose atraumatic; good dentition Neck: Supple, no LAD; no JVD Cardio: Tachycardia, irregularly irregular rhythm, no M/G/R, S1 and S2 normal Resp: No respiratory distress, Lungs CTA in all lobes bilaterally, no wheezes, rales, or rhonchi, slightly decreased breath sounds RLL Abdomen: Soft, symmetric, nontender; no distention; No masses or hepatosplenomegaly; Bowel sounds normoactive MSK: No deformities, full ROM throughout; pulses palpable and equal; 2+ pitting edema BLE. Neuro: Awake, alert; Muscle strength 5/5 bilaterally in UE/LE; Sensation intact bilaterally; CN intact Psych: Appropriate mood and affect; good judgement and insight. Results & Data Results & Data Vital Signs (Past 12 Hours) Vital Signs Temp Pulse Pulse Resp BP BP Pulse Ox 09/09/24 18:00 90 23 93 09/09/24 18:00 126/85 09/09/24 17:51 98 H 29 H 95 09/09/24 17:46 136/83 09/09/24 17:45 97 H 27 H 09/09/24 17:42 98 H 18 95 09/09/24 17:31 164/75 H 09/09/24 17:31 94 H 164/75 H 09/09/24 17:30 91 H 21 95 09/09/24 17:27 87 21 95 09/09/24 17:15 135/87 09/09/24 17:12 95 H 14 95 09/09/24 16:57 159 H 15 09/09/24 16:47 114/95 09/09/24 16:44 161 H 130/107 H 09/09/24 16:42 158 H 25 H 114/95 93 09/09/24 16:39 132 H 23 95 09/09/24 16:31 125/57 L 09/09/24 16:24 131 H 22 93 09/09/24 16:21 107 H 15 94 09/09/24 16:15 91 H 25 H 94 09/09/24 16:15 138/81 09/09/24 16:00 102 H 18 127/76 93 09/09/24 16:00 142/111 H 09/09/24 15:57 160 H 09/09/24 15:52 130 H 19 167/97 H 93 09/09/24 15:52 93 09/09/24 15:52 36.8 C 143 H 20 167/97 H 93 O2 Del Method 09/09/24 18:00 09/09/24 18:00 09/09/24 17:51 09/09/24 17:46 09/09/24 17:45 09/09/24 17:42 09/09/24 17:31 09/09/24 17:31 09/09/24 17:30 09/09/24 17:27 09/09/24 17:15 09/09/24 17:12 09/09/24 16:57 09/09/24 16:47 09/09/24 16:44 09/09/24 16:42 09/09/24 16:39 09/09/24 16:31 09/09/24 16:24 09/09/24 16:21 09/09/24 16:15 09/09/24 16:15 09/09/24 16:00 09/09/24 16:00 09/09/24 15:57 09/09/24 15:52 Room Air 09/09/24 15:52 Room Air 09/09/24 15:52 Room Air Laboratory Results 09/09/24 09/09/24 09/09/24 17:27 16:03 15:57 WBC 16.06 H RBC 4.96 Hgb 12.5 Hct 38.9 MCV 78.4 L MCH 25.2 MCHC 32.1 RDW Std Deviation 45.8 RDW Coeff of Jenniffer 16.2 H Plt Count 557 H MPV 9.7 Immature Gran % (Auto) 0.7 Neut % (Auto) 85.6 Lymph % (Auto) 6.9 [place] % (Auto) 6.5 Eos % (Auto) 0.1 Baso % (Auto) 0.2 Neut # (Auto) 13.74 H Lymph # (Auto) 1.11 L [place] # (Auto) 1.05 H Eos # (Auto) 0.01 Baso # (Auto) 0.04 Immature Gran # (Auto) 0.11 PT 26.6 H INR 2.7 H APTT 34 H PTT Ratio 1.3 Sodium 136 Potassium 4.6 Chloride 103 Carbon Dioxide 24 Anion Gap 9 BUN 31 H Creatinine 1.00 Est Cr Clr Drug Dosing 38.1 eGFR 56.60 BUN/Creatinine Ratio 31.0 H Glucose 170 H Calcium 10.0 Magnesium 2.0 Total Bilirubin 0.4 AST 24 ALT 29 Alkaline Phosphatase 89 Troponin I High Sens 7.4 B-Natriuretic Peptide 729 H Total Protein 7.6 Albumin 4.4 Globulin 3.2 Albumin/Globulin Ratio 1.4 TSH 2.188 Urine Color Yellow Urine Appearance Clear Urine pH 7.0 Ur Specific Landenberg 1.015 Urine Protein Negative Urine Glucose (UA) Negative Urine Ketones Negative Urine Blood Trace-intact H Urine Nitrite Negative Urine Bilirubin Negative Urine Urobilinogen Negative Ur Leukocyte Esterase Negative Urine RBC 0-2 Urine WBC 0-5 Ur Epithelial Cells 0-2 Urine Bacteria None Seen Adenovirus (PCR) Not Detected B. pertussis DNA (PCR) Not Detected B.parapertussis DNA PCR Not Detected C. pneumoniae DNA (PCR) Not Detected Coronavirus OC43 (PCR) Not Detected Coronavirus HKU1 (PCR) Not Detected Coronavirus 229E (PCR) Not Detected SARS-CoV-2 (PCR) Not Detected Coronavirus NL63 (PCR) Not Detected Human Metapneumovir PCR Not Detected Influenza Type A (PCR) Not Detected Influenza Type B (PCR) Not Detected M. pneumoniae (PCR) Not Detected Parainfluenza 1 (PCR) Not Detected Parainfluenza 2 (PCR) Not Detected Parainfluenza 3 (PCR) Not Detected Parainfluenza 4 (PCR) Not Detected RSV (PCR) Not Detected Entero/Rhino (PCR) Not Detected Diagnostic Findings Chest X-Ray 09/09/24 15:55 EXAM:Radiograph of the Chest 1 View INDICATION: Chest pain. TECHNIQUE: Frontal view of the chest. COMPARISON:07/08/2024 FINDINGS: Lungs and pleural spaces: Increase very small bilateral pleural effusions. No pneumothorax. Stable airway thickening with slight increase left basilar airspace disease. Heart: Stable prominent cardiac shadow. Mediastinum: Normal contour. Bones/joints: No fracture, erosion or dislocation. Soft tissues: No abnormality noted. No radiopaque foreign body noted. Upper abdomen: No abnormality noted. IMPRESSION: Slight increased very small bilateral pleural effusions and chronic bronchitis with new mild left basilar atelectasis or pneumonia. ACT 112: Negative or not required by law. Electronically signed by Lucy Edwards 09-09-2024 4:23 PM Code Status & VTE Plan Code Status Full Supervising Physician Co-Signing Physician Notes Patient seen and examined, chart reviewed, case discussed with Jensen Argueta PA-C and I agree with the assessment and plan as above except as otherwise noted Labs and images reviewed 79-year-old female history of A-fib presented with A-fib RVR and bilateral lower extremity edema. Suspected to have some venous stasis component to her edema, has a history of EF 55 to 60% and mild AR/mild MR/moderate TR. She is admitted with RVR and was started on a Cardizem drip. She took her morning medications to include diltiazem 360 mg in the morning daily extended release, and metoprolol 150 mg tartrate twice daily. He does show evidence of some volume overload lower extremity edema, elevated BNP, and some congestion on x-ray with small effusions. She received Lasix.? Whether this is related with her RVR. She is anticoagulated. INR therapeutic. Following admission on Cardizem drip she subsequently converted to normal sinus rhythm. EKG ordered to document. Diltiazem drip discontinued. Will continue metoprolol and Cardizem p.o. Will follow overnight to ensure stability and continue diuresis. At time of reassessment she is saturating normally on room air. Lungs are diminished in the bases with trace clavicles otherwise clear, legs are with 2+ pitting edema bilaterally. Agree with above. PG Care Time/CCT Total # of Minutes Spent Total Time Spent with Patient: Total time spent is greater than 50% in coordination of care (as documented) at patient's floor/unit and/or counseling patient: Coding Level of Care Code 66807 INT INP/OBS CARE 2/55MIN Diagnoses Atrial fibrillation with RVR I48.91 Bilateral lower extremity edema R60.0 Leukocytosis D72.829 Anticoagulation goal of INR 2 to 3 Z51.81; Z79.01
[2024-09-09 18:38] LABS: Bacteria Urine None Seen (None Seen); Epithelial Cell Urine 0-2 /hpf (0-2); RBC Urine 0-2 /hpf (0-2); WBC Urine 0-5 /hpf (0-5)
[2024-09-09] MEDS: LOSARTAN POTASSIUM 50 MG TAB PO SCH (21:23)
[2024-09-09] MEDS: WARFARIN SOD 2 MG TAB PO SCH (21:23)
[2024-09-09] MEDS: METOPROLOL TARTRATE 50 MG TAB PO SCH (21:24)
[2024-09-10] MEDS: LEVOTHYROXINE SODIUM 50 MCG TABLET PO SCH (05:47)
[2024-09-10] MEDS: ANASTROZOLE 1 MG TAB PO SCH (08:25)
[2024-09-10] MEDS: ATORVASTATIN 20 MG TAB PO SCH (08:25)
[2024-09-10] MEDS: dilTIAZem HCL 180 MG CAPCR PO SCH (08:25)
--- NOTE | 2024-09-10 08:29 | Electrocardiogram Report ---
Test Reason : Blood Pressure : */* mmHG Vent. Rate : 57 BPM Atrial Rate : 57 BPM P-R Int : 192 ms QRS Dur : 74 ms QT Int : 422 ms P-R-T Axes : 78 -4 62 degrees QTcB Int : 410 ms Sinus bradycardia Otherwise normal ECG When compared with ECG of 09-Sep-2024 15:52, Vent. rate has decreased by 95 bpm Atrial flutter no longer present Confirmed by Sav Luna ([id number]) on 09/10/2024 8:29:07 AM Referred By: Sabine Trejo Confirmed By: Sav Luna
[2024-09-10] MEDS ORDERED: FUROSEMIDE 40 MG/4 ML VIAL IV SCH (09:00)
[2024-09-10] MEDS: FUROSEMIDE 40 MG/4 ML VIAL IV SCH (10:11)
[2024-09-10] MEDS: AMIODARONE 200 MG TAB PO SCH (10:11)
[2024-09-10 11:18] LABS: Hematocrit (blood only) 34.6 % (37.0-47.0); Hemoglobin 10.8 g/dl (12.0-16.0); Mean Corpuscular Hemoglobin 24.6 pg (25.0-34.0); Mean Corpuscular Hgb Conc 31.2 g/dL (32.0-36.0); Mean Corpuscular Volume 78.8 fL (80.0-100.0); Mean Platelet Volume 9.5 fL (9.4-12.4); Platelet Count 383 K/uL (130-400); RDW Coefficient of Variation 16.3 % (11.5-14.5); RDW Standard Deviation 46.7 fL (36.4-46.3); Red Blood Count 4.39 M/uL (4.20-5.40); White Blood Count 11.97 K/ul (4.8-10.8)
[2024-09-10 11:40] LABS: INR 2.3 (0.9-1.1)
[2024-09-10 11:46] LABS: BUN Creatinine Ratio 37.8 (10-20); Calcium 9.5 mg/dl (8.6-10.3); Creatinine Clr Calc Pharmacy 41.1 ml/min; Potassium 3.6 mmol/L (3.5-5.1)
--- NOTE | 2024-09-10 12:01 | Hospitalist Progress Note ---
Date of Service September 10, 2024 Assessment & Plan (1) Atrial fibrillation with RVR: Plan: She actually presented with atrial flutter with 2 1 block. She has since converted to normal sinus rhythm. Cardizem drip has been switched back to oral dosing. Continue metoprolol. Appreciate cardiology consultation and recommendations. Telemetry (2) Bilateral lower extremity edema: Plan: She appears to have an element of acute diastolic CHF. Parenteral Lasix has been ordered. Monitor intake and output. (3) Leukocytosis: Plan: No active infection. Probably related to prednisone therapy. (4) Anticoagulation goal of INR 2 to 3: Plan: Long-term Coumadin therapy. INR on admission was 2.7. Will follow daily Plan Hopeful discharge to home tomorrowSeptember 11 Admission and Anticipated Discharge Date Admission Date: September 09, 2024 Subjective Alert and oriented. No distress. She presented with atrial flutter with 2-1 block but appears to have converted back to normal sinus rhythm. She appears to have an element of acute diastolic CHF. Intravenous Lasix has been started. Will check free T3 and free T4 levels. Diltiazem drip has been switched back to oral dosing. Continue metoprolol. Hopefully home tomorrowSeptember 11 Review of Systems 2 Review of Systems: Constitutionalno fever or chills ENTno blurred vision, no double vision, no epistaxis, no sore throat Respiratoryno cough, no wheezing, no shortness of breath Cardiacno chest pain, no syncope. Palpitations have ceased Edgardo nausea, vomiting, diarrhea, melena, hematochezia GUno urinary retention, no urinary incontinence, no dysuria, no hematuria Musculoskeletalno joint pain, no muscle tenderness Skinno bruising, no rashes, no pruritus Neurono isolated weakness, no paresthesia, no weakness Psychno depression, no anxiety Physical Exam 2 Physical Exam: General-alert and oriented x3, no fever, no chills HEENT-head atraumatic and normocephalic, pupils equal and reactive to light, extraocular muscles intact Neck-no lymphadenopathy or thyromegaly, trachea midline Chest-faint bibasilar inspiratory rales. No wheezing. No rhonchi. i Cardiac-regular rate and rhythm, normal S1 and S2 Abdomen-normal bowel sounds, no hepatosplenomegaly Extremities-no cyanosis, clubbing, or edema Neuro-cranial nerves II through XII intact, motor and sensory function within normal limits, strength symmetrical, no focal deficits Psych-normal affect, normal mood Results & Data Results & Data Vital Signs (Past 12 Hours) Vital Signs Temp Pulse Pulse Resp BP Pulse Ox O2 Del Method 09/10/24 11:22 36.3 C L 59 L 18 135/93 95 Room Air 09/10/24 08:59 63 09/10/24 07:35 36.5 C 70 18 170/95 H 97 Room Air 09/10/24 03:19 36.6 C 66 19 130/76 97 Room Air Laboratory Results 09/10/24 10:35 09/10/24 10:35 PG Care Time/CCT Total # of Minutes Spent Total Time Spent with Patient: Total time spent is greater than 50% in coordination of care (as documented) at patient's floor/unit and/or counseling patient: Coding Level of Care Code 40198 SUB INP/OBS CARE 3/50MIN Diagnoses Atrial fibrillation with RVR I48.91 Bilateral lower extremity edema R60.0 Leukocytosis D72.829 Anticoagulation goal of INR 2 to 3 Z51.81; Z79.01
--- NOTE | 2024-09-10 13:08 | XCELERA ---
[id number]
--- NOTE | 2024-09-10 13:38 | Electrocardiogram Report ---
Test Reason : Blood Pressure : */* mmHG Vent. Rate : 112 BPM Atrial Rate : 388 BPM P-R Int : * ms QRS Dur : 78 ms QT Int : 322 ms P-R-T Axes : * 32 5 degrees QTcB Int : 439 ms Atrial flutter with variable A-V block Abnormal ECG When compared with ECG of 09-Sep-2024 19:59, Atrial flutter has replaced Sinus rhythm Vent. rate has increased by 55 bpm Confirmed by Sav Luna ([id number]) on 09/10/2024 1:37:42 PM Referred By: Sabine Trejo Confirmed By: Sav Luna
--- NOTE | 2024-09-10 17:03 | Cardiology Consultation ---
Date of Consultation September 10, 2024 Assessment & Plan (1) Atrial fibrillation with rapid ventricular response: Chronic anticoagulation with warfarin 2. HFpEF 3. Hypertension 4. Mild to moderate mitral regurgitationmild pulmonary hypertension 5. Chronic lower extremity edema, CVI 6. Left knee pain. Patient admitted with asymptomatic atrial flutter/atrial fibrillation with RVR as high as 160s. Also with increased bilateral lower extremity edema likely some contribution from HFpEF. Episodes of AF have been frequent over the last year and rate control has been difficult despite high doses of AV glen agents. Previously on amiodarone and sinus rhythm successfully maintained. Recommend resuming rhythm control strategy with amiodarone and additional gentle diuresis. Will start amiodarone 200 mg 3 times dailytransition to 200 mg twice daily on discharge Additional dose of IV Lasix today, likely transition to p.o. diuretic tomorrow Can discontinue diltiazem (hopefully will help with edema) Continue current metoprolol Continue home warfarin Continue current ARB, statin Continue to monitor on telemetry today. If remains in sinus rhythm from a cardiac standpoint okay with discharge tomorrow. History of Present Illness Attending Physician: Harish Wahl MD History of Present Illness Mrs. Rodriguez is a very pleasant 79 year old female with a history significant for paroxysmal atrial fibrillation/flutter on warfarin, CKD, hypertension admitted with atrial flutter with RVR Patient has longstanding history of atrial fibrillation/flutter since at least back to 2012. Was on amiodarone for years continue 2019. More has dealt with paroxysmal AF with RVR, worsened during perioperative periods and with infections. Hospitalized 07/2024 in the setting of elevated INR after COVID infection and decreased p.o. intake. Again noted to have AF with RVR and discharged home on metoprolol, diltiazem. Diltiazem has been gradually increa sed up to 360 mg. Still with heart rates up to 110s 120s but asymptomatic. Has been dealing with new left leg/knee pain and was seen in the ED 09/05/2024, started on prednisone. Return to PCP yesterday and was noted to have heart rates to the 160s, ECG showed atrial flutter. Sent to ED again largely asymptomatic with AF. Did have increased chronic lower extremity edema. BNP elevated at 729. Given IV Lasix 20 mg x 1 and placed on diltiazem drip. Last night she converted to sinus rhythm and then back to AF with RVR for 30 minutes before return to sinus rhythm which she has maintained. Today she feels well. No chest pain or palpitations. Left knee pain still limiting. Edema modestly improved. Repeat echo today showed preserved LV function with mild to moderate MR, mild AI and mild pulmonary hypertension. Normal estimated RA pressure Recent cardiac testing: Echo 05/2024: EF 55%, aortic valve sclerosis, mild AI, mild MR, moderate TR with estimated PASP 50 Event monitor 04/2022: 12 days, paroxysmal A. fib, 17% burden, longest episode 8 hours, rate from 55-153 average 98 Allergies Allergy/AdvReac Type Severity Reaction Status Date / Time ciprofloxacin Allergy Intermediate ITCHY Verified 09/09/24 14:30 metronidazole Allergy Intermediate ITCHY Verified 09/09/24 14:30 amoxicillin [From Augmentin] AdvReac Severe Gastrointestinal Unverified 09/09/24 14:30 Upset clavulanic acid AdvReac Severe Gastrointestinal Unverified 09/09/24 14:30 [From Augmentin] Upset cheese AdvReac Intermediate "real Verified 09/09/24 14:30 cheese" - n/v Home Medications Medication Instructions Recorded Confirmed Type calcium 600 mg (as 1 tab PO BID 03/06/19 09/09/24 History carbonate)-vitamin D3 20 mcg (800 unit) tablet docusate sodium 100 mg capsule See Rx Instructions .Route .COMPLEX 05/13/19 09/09/24 History Mattress (Air or other) #1 ea 07/12/21 09/09/24 Rx compress.stocking,knee,reg,med #2 ea 07/12/21 09/09/24 Rx anastrozole 1 mg tablet 1 mg PO QAM 09/13/22 09/09/24 History ascorbic acid (vitamin C) 500 mg 500 mg PO QAM 04/25/23 09/09/24 History tablet (Vitamin C) metoprolol tartrate 100 mg tablet 150 mg (1.5 x 100 mg) PO BID #270 12/08/23 09/09/24 Rx tabs atorvastatin 20 mg tablet 20 mg PO QAM #90 tabs 02/28/24 09/09/24 Rx levothyroxine 50 mcg tablet 50 mcg PO QAM #90 tabs 02/28/24 09/09/24 Rx losartan 100 mg tablet 100 mg PO QPM #90 tabs 02/28/24 09/09/24 Rx cyanocobalamin (vitamin B-12) 1,000 mcg PO DAILY 07/08/24 09/09/24 History 1,000 mcg tablet (Vitamin B-12) omega 6-vdc-xsl-fish oil 1,000 mg 1 cap PO BID 07/08/24 09/09/24 History (120 mg-180 mg) capsule (Fish Oil) diltiazem HCl 360 mg 360 mg PO DAILY #90 caps 08/14/24 09/09/24 Rx capsule,extended release 24 hr prednisone 20 mg tablet 20 mg PO BID #15 tabs 09/05/24 09/09/24 Rx warfarin 2 mg tablet 2 mg PO DIRECTED 09/09/24 09/09/24 History Patient History Medical History Gastroenteritis due to COVID-19 virus Generalized weakness COVID-19 Elevated INR History of left breast cancer Hypophosphatemia Hypercalcemia Foot pain, bilateral Hx of Clostridium difficile infection 2006 Hypothyroidism Paroxysmal atrial fibrillation Dx/ed 2012 with episodes of RVR, burden stable per [place] cardio; F/U DR. 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 Dr. Finn *LEFT LIMB RESTRICTION History of bilateral mastectomy H/O breast biopsy MULTIPLE H/O colonoscopy History of arthroscopy of left shoulder History of bunionectomy R&L Family History Father Congestive heart failure Heart disease Myocardial infarction Mother Thyroid disorder Sister Liver cancer Thyroid cancer Alzheimer disease Breast cancer Daughter Atrial fibrillation Kidney disease End stage, on dialysis Brother Family history of colon cancer Cancer Other Family history of pancreatic cancer Denies family history of Ovarian cancer Prostate cancer Diabetes Lung cancer Colorectal cancer Stroke Social History Smoking Status: Never smoker Second Hand Exposure: No; Do You Dip or Chew Tobacco: No; Hx Alcohol Use: No Hx Substance Use: No Preferred Language: Indonesian Communication Ability: Effective Visual Impairment: Partially Limited Hearing Ability: Normal Behavioral Medical Director Required: No Beliefs That Will Affect Care: None marital status: / Current Living Situation: Family Current Living Situation Comment: lives with daughter current occupational status: retired How many Children do You have: 4 Other Information That Helps Us Care for You: No Feels Safe at Home: Yes Safety Concerns: Feels Safe At This Time Childhood Exposure to Second-Hand Smoke: No Diet: regular caffeine: No during the past year weight has: remained stable Dental Care, Regularly: Yes Physical Activity Frequency: 1-2 Times per Week Seatbelt Use: always Sunscreen Use: Yes Assistive Devices: Cane and Walker Review of Systems Review of Systems: All systems reviewed & are unremarkable except as noted in HPI & below Physical Exam Physical Exam: General: Comfortable HEENT: Sclerae anicteric Lungs: Clear to auscultation bilaterally Cardiac: Regular, 2 out of 6 holosystolic murmur Vascular: 2+ radial Abdomen: Soft, nontender Extremities: Well perfused, 2+ lower extremity edema to mid shins with hyperpigmentation Neuro: Nonfocal Psych: Alert orient x3, normal affect and mood Results & Data Vital Signs (Past 12 Hours) Vital Signs Temp Pulse Pulse Resp BP Pulse Ox O2 Del Method 09/10/24 15:39 97.5 F L 54 L 18 123/72 95 Room Air 09/10/24 14:18 52 L 09/10/24 11:22 97.3 F L 59 L 18 135/93 95 Room Air 09/10/24 08:59 63 09/10/24 07:35 97.7 F 70 18 170/95 H 97 Room Air PG Care Time/CCT Total # of Minutes Spent Total Time Spent with Patient: Total time spent is greater than 50% in coordination of care (as documented) at patient's floor/unit and/or counseling patient: Coding Level of Care Code 61288 INT INP/OBS CARE 2MIN Diagnoses Atrial fibrillation with rapid ventricular response I48.91
[2024-09-11 06:59] LABS: Hematocrit (blood only) 35.5 % (37.0-47.0); Hemoglobin 11.4 g/dl (12.0-16.0); Mean Corpuscular Hemoglobin 24.8 pg (25.0-34.0); Mean Corpuscular Hgb Conc 32.1 g/dL (32.0-36.0); Mean Corpuscular Volume 77.3 fL (80.0-100.0); Mean Platelet Volume 9.3 fL (9.4-12.4); Platelet Count 391 K/uL (130-400); RDW Coefficient of Variation 16.2 % (11.5-14.5); RDW Standard Deviation 45.5 fL (36.4-46.3); Red Blood Count 4.59 M/uL (4.20-5.40); White Blood Count 10.68 K/ul (4.8-10.8)
[2024-09-11 07:19] LABS: INR 2.1 (0.9-1.1); Prothrombin Time 21.4 Seconds (9.0-12.0)
[2024-09-11 07:22] LABS: BUN Creatinine Ratio 35.1 (10-20); Calcium 9.5 mg/dl (8.6-10.3); Potassium 3.6 mmol/L (3.5-5.1)
[2024-09-11 08:20] VITALS: O2SAT 96
[2024-09-11 11:29] VITALS: RESP 17; TEMP 99
--- NOTE | 2024-09-11 11:36 | Discharge Summary ---
Discharge Summary Date of Service September 11, 2024 Principal Dx & Hospital Course #1 = Principal Diagnosis (1) Atrial fibrillation with RVR: She actually presented with atrial flutter with 2: 1 block. She is now in atrial fibrillation which is chronic with rate control. She is now on amiodarone. Cardizem drip has been switched back to oral dosing. Continue metoprolol. Appreciate cardiology consultation and recommendations. Telemetry (2) Bilateral lower extremity edema: She appeared to have an element of acute diastolic CHF. Resolved with parenteral Lasix. Monitor intake and output. (3) Leukocytosis: No active infection. Probably related to prednisone therapy. (4) Anticoagulation goal of INR 2 to 3: Long-term Coumadin therapy. Therapeutic. Daily INR Plan Home today, September 11 Admission HPI Per Admitting Provider 79-year-old female presenting for tachycardia, rate 160s at outpatient office. ED course: CBC WBC 16.06, neutrophil predominant 13.74, MCV 78.4, platelets 557; PT/INR 26.6/2.7, APTT 34; CMP BUN 31, BUN/creatinine ratio 31, glucose 170; BNP 729; troponin 7.4; magnesium 2; TSH 2.188; UA pending; BioFire negative; CXR slightly increased very small bilateral pleural effusions and chronic bronchitis with new mild left basilar atelectasis or pneumonia; EKG a flutter with 2:1 AV conduction, atrial rate 172, ventricular rate 152. Provided with metoprolol tartrate 5 mg, furosemide 20 mg, diltiazem 20 mg total, and on diltiazem drip in ED. Patient is a very pleasant 79-year-old female PMHx A-fib with RVR on warfarin, hypothyroidism, CKD stage III, history of BCA, HLD, and HTN presenting for tachycardia. Was at outpatient appointment and noted to have a heart rate in the 160s, EKG revealing A-fib with RVR. Patient recently evaluated in ED 09/05 for chief complaint of LLE pain, was tachycardic with rate in 120s at that time. States that she ws encouraged to come to ED for these symptoms. Denying chest pain, shortness of breath, palpitations, abdominal pain, N/V/D/C, urinary symptoms, numbness/tingling, or fever. States that she has had episodes of a fast heart rate before. Took all a.m. medications. Please see Dr. Mariscal's attestation for adjustments/additions to treatment tamara n. Discharge Exam General-alert and oriented x3, no fever, no chills HEENT-head atraumatic and normocephalic, pupils equal and reactive to light, extraocular muscles intact Neck-no lymphadenopathy or thyromegaly, trachea midline Chest-faint bibasilar inspiratory rales. No wheezing. No rhonchi. i Cardiac-irregular rhythm, controlled rate, normal S1 and S2 Abdomen-normal bowel sounds, no hepatosplenomegaly Extremities-no cyanosis, clubbing, or edema Neuro-cranial nerves II through XII intact, motor and sensory function within normal limits, strength symmetrical, no focal deficits Psych-normal affect, normal mood Discharge Plan Discharge Items Patient Disposition: Home - Self-Care Reason For Visit: AFIB RVR Discharge Diagnosis: Atrial fibrillation with rapid ventricular rate, acute diastolic CHF Activity: Resume your previous activity Non-emergency contact: Primary Care Provider and Provider Relations Rep Call non-emergency contact if: you have any medication questions and your symptoms worsen Follow-up/Referrals: Sabine Trejo DO [Primary Care Provider] - Diet: Regular and Heart Healthy Addtl Attending Provider Instructions: Take amiodarone 200 mg twice a day. A prescription has been sent to [facility] and [facility]. All other medications remain the same. See your primary care provider as soon as possible Pending Studies at Discharge: No Stand-Alone Forms: [facility] Jdguanjia, Smoking Cessation Medications and DC Order Prescriptions: New amiodarone 200 mg Tablet 200 mg PO BID Qty: 60 0RF Continued (DME) Mattress (Air or other) Misc See Rx Instructions .Route Qty: 1 0RF Rx Instructions: As directed (DME) compress.stocking,knee,reg,med Misc See Rx Instructions .Route Qty: 2 0RF Rx Instructions: As directed metoprolol tartrate 100 mg tablet 150 mg PO BID Qty: 270 3RF atorvastatin 20 mg tablet 20 mg PO QAM Qty: 90 3RF levothyroxine 50 mcg tablet 50 mcg PO QAM Qty: 90 3RF losartan 100 mg tablet 100 mg PO QPM Qty: 90 3RF anastrozole 1 mg tablet 1 mg PO QAM calcium carbonate-vitamin D3 600 mg(1,500mg) -800 unit tablet 1 tab PO BID Hold Instructions: surgery docusate sodium 100 mg capsule See Rx Instructions .ROUTE .COMPLEX Rx Instructions: 300MG IN THE MORNING 100MG AT BEDTIME diltiazem HCl 360 mg capsule,extended release 24hr 360 mg PO DAILY Qty: 90 3RF ascorbic acid (vitamin C) [Vitamin C] 500 mg Tablet 500 mg PO QAM Hold Instructions: surgery warfarin 2 mg tablet 2 mg PO DIRECTED Protocol: Dose Management Condition: Monday Dose/Route: 2 mg Instruction: 1 x 2 mg tablet Condition: Monday Dose/Route: 2 mg Instruction: 1 x 2 mg tablet Condition: Monday Dose/Route: 2 mg Instruction: 1 x 2 mg tablet Condition: Monday Dose/Route: 2 mg Instruction: 1 x 2 mg tablet Condition: Dose/Route: 2 mg Instruction: 1 x 2 mg tablet Condition: Monday Dose/Route: 3 mg Instruction: 1.5 x 2 mg tablets Condition: Monday Dose/Route: 2 mg Instruction: 1 x 2 mg tablet Protocol Text: Adjustment Start Date: Monday09/02/24 INR Value: 2.5 INR Date: 09/02/24 Recheck Date: 09/09/24 cyanocobalamin (vitamin B-12) [Vitamin B-12] 1,000 mcg Tablet 1,000 mcg PO DAILY omega 4-nhb-gxz-fish oil [Fish Oil] 1,000 (120-180) mg Capsule 1 cap PO BID prednisone 20 mg tablet 20 mg PO BID Qty: 15 0RF Rx Instructions: Please take 1 tablet by mouth twice a day on days 1 through 5 Please take 1 tablet by mouth daily on days 6 through 10 Discharge Orders: Discharge Order- CHF (Routine); Ordered 09/11/24 Ordered By: Harish Wahl Admission Data Admit Date/Time: 09/09/24 19:03 Attending Provider: Harish Wahl Admit Provider: Junito Maricsal Primary Care Provider: aSbine Trejo Other Providers: Junito Mariscal; Randy Price; Sav Luna; Iglesia Odom; Meliton Hernandez; Ricardo Alejandro; Louie Givens Jr; Seven Galaviz; Crhistina Lo; Charlene Villareal; Darryl Rasmussen; Darryl Miller; Harish Noriega; Mariana Almeida; Romulo Tubbs; Mary Sharma; Elia Montenegro; Romulo Rey; Reji Rivers; Michael Crum Hospital Stay Data Consultations 09/09/24 17:57 ED Decision to Admit Stat 09/09/24 20:53 Consult Cardiology Routine Pending Results Patient Have Any Pending Studies at Discharge: No Discharge Instructions Given to Patient (Per Discharging Provider) Take amiodarone 200 mg twice a day. A prescription has been sent to [facility] and [place]. All other medications remain the same. See your primary care provider as soon as possible Total Time Total Time Spent Total Time Spent (In Minutes): 45 minutes Coding Level of Care Code 51020 INP/OBS DISCH >30 MIN Diagnoses Atrial fibrillation with RVR I48.91 Bilateral lower extremity edema R60.0 Leukocytosis D72.829 Anticoagulation goal of INR 2 to 3 Z51.81; Z79.01
[2024-09-11 12:23] VITALS: BP 172/82; PULSE 74
--- NOTE | 2024-09-11 15:00 | Cardiology Progress Note ---
Date of Service September 11, 2024 Assessment & Plan (1) Atrial fibrillation with rapid ventricular response: Plan: Chronic anticoagulation with warfarin 2. HFpEF 3. Hypertension 4. Mild to moderate mitral regurgitationmild pulmonary hypertension 5. Chronic lower extremity edema, CVI 6. Left knee pain. Feeling well. Remains in sinus rhythm Lower extremity congestion improved, kidney function stable From a cardiac standpoint okay with discharge today Home on amiodarone 200 mg twice daily for next 2 weeks. Eventually transition to 200 mg daily Stop diltiazem. Continue current metoprolol 150 mg twice daily Continue home warfarin Continue current ARB, statin Continue compression stockings. Daily weights at home, Lasix 20 mg daily as needed for weight gain >2 pounds Will arrange follow-up with me in 3 weeks Admission and Anticipated Discharge Date Admission Date: September 09, 2024 Subjective Feeling well today. Denies any palpitations. No chest pain. Breathing at baseline. Lower extreme edema improved. Weight down from 150 pounds down to 147. Telemetry reviewedremains in sinus rhythm. Review of Systems Review of Systems: All systems reviewed & are unremarkable except as noted in HPI & below Physical Exam Physical Exam: General: Comfortable HEENT: Sclerae anicteric Lungs: Clear to auscultation bilaterally Cardiac: Regular, 2 out of 6 holosystolic murmur Vascular: 2+ radial Abdomen: Soft, nontender Extremities: Well perfused, trace residual edema to mid shins with hyperpigmentation Neuro: Nonfocal Psych: Alert orient x3, normal affect and mood Results & Data Vital Signs (Past 12 Hours) Vital Signs Temp Pulse Pulse Pulse Resp BP BP 09/11/24 12:22 99.0 F 74 63 17 172/82 H 140/83 09/11/24 11:27 99.0 F 63 17 140/83 09/11/24 08:00 98.2 F 62 18 134/71 09/11/24 07:25 50 L 09/11/24 02:58 98.1 F 55 L 18 123/77 Pulse Ox O2 Del Method 09/11/24 12:22 96 09/11/24 11:27 96 Room Air 09/11/24 08:00 96 Room Air 09/11/24 07:25 09/11/24 02:58 97 Room Air PG Care Time/CCT Total # of Minutes Spent Total Time Spent with Patient: Total time spent is greater than 50% in coordination of care (as documented) at patient's floor/unit and/or counseling patient: Coding Level of Care Code 49014 SUB INP/OBS CARE 2/35MIN Diagnoses Atrial fibrillation with rapid ventricular response I48.91
[2024-09-13] MEDS ORDERED: WARFARIN SOD 3 MG TAB PO SCH (16:00)
== END 2024-09-11 14:03 | disposition home or self-care (01) | DRG 308 ==
LOC: SUATTDRO → ED 15:47 → 2S 19:03 → SUATTDRO 19:03 → 2S 20:27